=== PATIENT | female | born 1950 ===

== ENCOUNTER 2025-07-12 04:40 | Inpatient (IN) | payer MEDICARE, OTHER, SELFPAY ==
--- OUTSIDE RECORDS SUMMARY | 2025-07-11 21:16 | XMS_ITS | Encounter Summary ---
Author Organization [facility] Address [address] [place] [address] Phone Care Team Providers Care News Agent Name Role Phone Ravi Barker MD Unavailable Cecilia Epperson MD Unavailable Tere Hernandez PA-C Unavailable Jailene Jackson DO Primary Care Provider Reason for Visit * Reason Comments Fall Encounter Details Date Type Department Care Team (Late st Contact Info) Description 07/11/2025 9:16 PM EDT - 07/12/2025 4:10 AM EDT Emergency [facility] [address] [place] [address] Discharge Disposition: Another Health Care Institution Not Defined Social History Tobacco Use Types Packs/Day Years Used Date Smoking Tobacco: Never Smokeless Tobacco: Never Comments: Alcohol Use Standard Drinks/Week Comments Yes 0 (1 standard drink = 0.6 oz pur e alcohol) once a month Education Answer Date Recorded Are you interested in more education? Not on mariajose e 01/06/2023 Are you concerned about learning? Not on file 01/06/2023 No 01/06/2023 No 01/06/2023 Food Answer Date Recorded Within the past 6 months we worried whether our food would run out before we got money to buy more. Never True 01/22/2025 Within the past 6 months the food we bought just didn't last and we didn't have enough money to get more. Never True Residential Stability Answer Date Recor ded What is your housing situation today? I have hi duran 01/22/2025 How many times have you move d in the past 12 months? Zero (I did not move) 01/22/2025 Paying for Meds Answer Date Recorded Do you have trouble paying for medicines? No 01/22/2025 Paying Utility Bills Answer Date Record ed Do you have trouble paying your heating or elect ricity bill? No 01/22/2025 Transportation Answer Date Recorded Has the lack of transportati on kept you from medical appointments or from getting medications? Yes 01/22/2025 Digital Access Answer Date Recorded No 01/22/2025 Yes 01/22/2025 Do you have reliable internet access at home? Ye s 01/22/2025 Do you have a device (e.g., phone, tablet, computer) with a working camera? Yes 01/22/2025 Intimate Partner Violence Answer Date R ecorded Are you denied basic needs s uch as food, clothing, or medical care? No 07/11/2025 In the past 12 months have y ou been in a relationship with a person who hurts, threatens, or tries to control you? No 07/11/2025 Are you denied basic needs s uch as food, clothing, or medical care? No 07/11/2025 In the past 12 months have y ou been in a relationship with a person who hurts, threatens, or tries to control you? No 07/11/2025 Comments No Sex and Gender Information Value Date Recorded Sex Assigned at Female 11/28/2017 6:32 PM EDT Legal Sex Female 10:01 PM EDT Gender Identity Female 11/28/2017 6:32 PM EDT Sexual Orientation Bisexual 12/31/2017 8: 50 PM EDT documented as of this encounter Last Filed Vital Signs Vital Sign Reading Time Taken Comments Blood Pressure 140/88 07/12/2025 3:45 AM EDT Pulse 106 07/11/2025 9:57 PM EDT Temperature 36.9 C (98.5 F) 07/11/2025 9:49 PM EDT Respiratory Rate 18 07/11/2025 9:49 PM EDT Oxygen Saturation 97% 07/12/2025 3:45 AM EDT Inhaled Oxygen Concentration - - Weight - - Height - - Body Mass Index - - documented in this encounter Functional Status * Calculated C-SSRS Risk Score (Lifetime/Recent) Answer Date of Assessment Author No Risk Indicated 07/11/2025 9:42 PM Napoleon Morocho RN * [place] Suicide Severity Rating Scale (Screener/Recent Self-Report) Question Answer Date of Assessment Author 1. Wish to be (Past 1 Month) No 07/11/2025 9:42 PM Napoleon Morocho RN 2. Non-Specific Active Suicidal Thoughts (Past 1 Month) No 07/11/2025 9:42 PM Napoleon Morocho RN 6. Suicidal Behavior (Lifetime) No 07/11/2025 9:42 PM Napoleon Morocho RN documented as of this encounter Medications at Time of Discharge acetaminophen (TYLENOL) 325 mg tablet Take 2 tablets (650 mg total) by mouth every 6 (six) hours as needed. 0 09/18/2023 albuterol 90 mcg/actuation inhaler Inhale 2 puffs into the lungs every 4 (four) hours as needed for wheezing. amLODIPine (NORVASC) 10 MG tabletIndication s:Medication refill TAKE 1 TABLET BY MOUTH EVERY DAY 90 tablet 3 08/13/2024 atorvastatin (LIPITOR) 40 MG tablet take 1 tablet by mouth every day in the morning 90 tablet 3 05/21/2024 azithromycin (ZITHROMAX) 250 MG tablet One tablet every Monday , Monday and Monday 12 tablet 11 01/15/2025 biotin 1 mg tablet Take 1,000 mcg by mouth daily. celecoxib (CELEBREX) 200 MG capsule 01/23/2024 cycloSPORINE (RESTASIS) 0.05 % suspension Apply 1 drop to eye. 08/22/2023 docusate (COLACE) 100 mg tablet Take 100 mg by mouth. 09/21/2023 DULoxetine (CYMBALTA) 30 MG capsule Take 30 mg by mouth daily. 06/21/2024 ergocalciferol (DRISDOL) 50,000 unit capsule Take 50,000 Units by mouth once a week. esomeprazole (NEXIUM) 40 MG capsule Take 40 mg by mouth 2 (two) times a day. famotidine (PEPCID) 40 MG tablet Take 40 mg by mouth daily. fluticasone furoate (ARNUITY ELLIPTA) 200 mcg/actuation DsDv Inhale 1 puff into the lungs daily. 30 each 11 01/15/2025 fluticasone propionate (FLONASE) 50 mcg/actuation nasal spray 1 spray by Nasal route daily. fluticasone propionate (FLONASE) 50 mcg/actuation nasal spray 2 sprays by Nasal route daily. 16 g 5 07/01/2024 furosemide (LASIX) 40 MG tablet Take 1 tablet (40 mg total) by mouth every morning. 30 tablet 5 07/01/2024 lamoTRIgine (LAMICTAL) 100 MG IMMEDIATE release tablet Take 200 mg by mouth daily. latanoprost (XALATAN) 0.005 % ophthalmic solution Place 1 drop into each eye nightly. levothyroxine (SYNTHROID, LEVOTHROID) 112 MCG tablet Take 112 mcg by mouth every morning. LORazepam (ATIVAN) 0.5 MG tablet if needed 11/17/2022 meclizine (ANTIVERT) 12.5 mg tablet 08/29/2023 polyethylene glycol (MIRALAX) 17 gram packet Take 17 g by mouth 2 (two) times a day as needed for moderate constipation. Take up to twice daily to help have a bowel movement. Once moving bowels, can decrease to daily or as needed. 07/15/2023 PULMICORT FLEXHALER 180 mcg/actuation inhaler 04/19/2024 senna (SENOKOT) 8.6 mg tablet Take 8.6 mg by mouth. 09/09/2023 traZODone (DESYREL) 100 MG tablet Take 200 mg by mouth nightly at bedtime. 06/15/2023 umeclidinium-elvira anteroL (ANORO ELLIPTA) 62.5-25 mcg/actuation diskus inhaler Inhale 1 puff into the lungs daily. 1 each 5 07/01/2024 6 documented as of this encounter ED Notes * Napoleon Cole, RN - 07/11/2025 9:56 PM EDT ED Nursing Progress Note Pt reported needing to use bathroom. Rns attempted to provide toileting. Pt unable to tolerate d/t pain. Pt yelled at rns. Pt reports wanting to attempt after pain medication * Napoleon Cole RN - 07/11/2025 9:42 PM EDT Pt biba from home for fall, no headstrike/thinners/loc. Pt landed on L side, primarily hip. Pt received 50mcg fentanyl I'm en route and dilaudid on arrival to no effect. Pt 06/20 pain to hip along with new neuropathy-numbness and pain to palpation,. Pt axox3, * Sherita Mckenzie PA-C - 07/11/2025 9:15 PM EDT Chief Complaint Chief Complaint Patient presents with Fall History of Present Illness The patient, Briseida Adair,is a 75 y.o. female who presents for evaluation of Fall The patient is a 75-year-old female with past medical history of osteopenia, chronic heart failure,stage III chronic kidney disease, oxygen dependent COPD. She presents emergency department from home by ambulance for evaluation of left hip injury. Patient is accompanied by her sister whom she lives with. At the time of fall, patient was alone. She states that she tripped over her oxygen tubing, landing on her left hip region. She immediately had severe pain and was unable to get up but managed to crawl to the phone to call 911. She reports persistent severe pain despite fentanyl given by EMS and a milligram of Dilaudid given on arrival to the ED. She is requesting more pain medications. She denies head strike or LOC. Not anticoagulated. Denies any head, neck pain, back pain or other acute pain or injuries. Unless otherwise specified, I have reviewed and agree with the triage and nursing notes. ROS A ten point review of systems was negative except what was noted in the HPI. Review of Systems Past Medical History Past Medical History: Diagnosis Date Anemia gets iron infusions Aortic stenosis Arrhythmia LBBB, PVC's PAC's Asthma controlled with inhaler Chronic heart failure LEF 40% 11/2023 Chronic kidney disease (CKD) Chronic kidney disease, stage III (moderate) Baseline GFR 59 mg/dL; sees Dr Peterson Chronic nausea Chronic obstructive pulmonary disease oxygen dependant 2.5 L Colon polyp Depression with anxiety Digestive problems Diverticulitis Dysphagia Elevated LFTs Essential hypertension Fibromyalgia Foot drop, bilateral uses cane Fracture right wrist(no hardware) Gastroesophageal reflux disease Glaucoma Hearing loss History of ileus Hx of dehydration Hyperlipidemia Hypothyroidism Joint pain Nonalcoholic fatty liver disease Numbness and tingling left arm, hand and feet Obesity s/p lap band in 2011 with removal in 2016. Sleeve gastrectomy in 2017. Obstructive sleep apnea no CPAP Osteoarthritis Osteoporosis Oxygen dependent 09/2023 O2 at 2.5 L rx'd on dc from [facility] after a fall Peripheral neuropathy Recurrent vomiting Thought to be related to gastrectomy in 2017. Possible component of cannabis hyperemesis syndrome. Shortness of breath O2 dependant Type II diabetes mellitus with complication Complicated by nephropathy and retinopathy; no medications at this time Wears eyeglasses Wears glasses Wears hearing aid in both ears Past Surgical History Past Surgical History: Procedure Laterality Date COLONOSCOPY 08/12/2011 Repeat in 5 years COLONOSCOPY N/A 07/03/2024 Performed by Rafiq Jeronimo MD at [facility] ENDOSCOPY COLONOSCOPY W/ POLYPECTOMY 11/28/2016 Adenomatous polyp ESOPHAGEAL MANOMETRY WITH IMPEDANCE HIGH RESOLUTION 02/09/2021 Performed by Rafiq Jeronimo MD at [facility] ENDOSCOPY ESOPHAGOGASTRODUODENOSCOPY 01/29/2019 [facility] ESOPHAGOGASTRODUODENOSCOPY 12/11/2017 Ferrera Akash ESOPHAGOGASTRODUODENOSCOPY N/A 07/03/2024 Performed by Rafiq Jeronimo MD at [facility] ENDOSCOPY ESOPHAGOGASTRODUODENOSCOPY N/A 03/23/2021 Performed by Rafiq Jeronimo MD at [facility] ENDOSCOPY ESOPHAGOGASTRODUODENOSCOPY N/A 12/10/2020 Performed by Rafiq Jeronimo MD at [facility] ENDOSCOPY ESOPHAGOGASTRODUODENOSCOPY N/A 12/11/2017 Performed by Prince Colin MD at [facility] ENDOSCOPY JOINT REPLACEMENT right shoulder(07/2019); left (08/2020) LAP BAND PLACEMENT 07/2012 LAP BAND REMOVAL 06/30/2017 LAPAROSCOPIC SLEEVE GASTRECTOMY 08/10/2017 SPINAL FUSION L4-L5, 11/2019 TOTAL KNEE ARTHROPLASTY Right 09/08/2023 TOTAL SHOULDER ARTHROPLASTY Bilateral UPPER GASTROINTESTINAL ENDOSCOPY Home Medications Prior to Admission medications Medication Sig acetaminophen (TYLENOL) 325 mg tablet 650 mg, Oral, Every 6 hours PRN albuterol 90 mcg/actuation inhaler 2 puffs, Every 4 hours PRN amLODIPine (NORVASC) 10 MG tablet 10 mg, Oral, Daily atorvastatin (LIPITOR) 40 MG tablet 40 mg, Oral, Every morning Patient taking differently: Take 40 mg by mouth nightly at bedtime. azithromycin (ZITHROMAX) 250 MG tablet One tablet every Monday , Monday and Monday biotin 1 mg tablet 1,000 mcg, Daily celecoxib (CELEBREX) 200 MG capsule cycloSPORINE (RESTASIS) 0.05 % suspension 1 drop docusate (COLACE) 100 mg tablet 100 mg Patient taking differently: Take 100 mg by mouth as needed for mild constipation. DULoxetine (CYMBALTA) 30 MG capsule 30 mg, Daily ergocalciferol (DRISDOL) 50,000 unit capsule 50,000 Units, Weekly esomeprazole (NEXIUM) 40 MG capsule 40 mg, 2 times daily famotidine (PEPCID) 40 MG tablet 40 mg, Daily fluticasone furoate (ARNUITY ELLIPTA) 200 mcg/actuation DsDv 1 puff, Inhalation, Daily fluticasone propionate (FLONASE) 50 mcg/actuation nasal spray 1 spray, Daily fluticasone propionate (FLONASE) 50 mcg/actuation nasal spray 2 sprays, Nasal, Daily furosemide (LASIX) 40 MG tablet 40 mg, Oral, Every morning lamoTRIgine (LAMICTAL) 100 MG IMMEDIATE release tablet 200 mg, Daily latanoprost (XALATAN) 0.005 % ophthalmic solution 1 drop, Nightly levothyroxine (SYNTHROID, LEVOTHROID) 112 MCG tablet 112 mcg, Every morning LORazepam (ATIVAN) 0.5 MG tablet if needed meclizine (ANTIVERT) 12.5 mg tablet polyethylene glycol (MIRALAX) 17 gram packet 17 g, Oral, 2 times daily PRN, Take up to twice daily to help have a bowel movement. Once moving bowels, can decrease to daily or as needed. PULMICORT FLEXHALER 180 mcg/actuation inhaler senna (SENOKOT) 8.6 mg tablet 8.6 mg Patient taking differently: Take 8.6 mg by mouth as needed for constipation. traZODone (DESYREL) 100 MG tablet 200 mg, Nightly umeclidinium-vilanteroL (ANORO ELLIPTA) 62.5-25 mcg/actuation diskus inhaler 1 puff, Inhalation, Daily Allergies Allergies Allergen Reactions Celebrex [Celecoxib] Acute Interstitial Nephritis Patient denies this allergy Aspirin Other reaction(s): taking celebrex Azithromycin Other (See Comments) Erythromycin Pollen Extracts Sneezing Sneezing, runny nose Sulfa (Sulfonamide Antibiotics) Other reaction(s): rash Victoza [Liraglutide] Social and Family History Social History Tobacco Use Smoking status: Never Smokeless tobacco: Never Tobacco comments: Substance Use Topics Alcohol use: Yes Comment: once a month Social History Substance and Sexual Activity Drug Use Yes Frequency: 7.0 times per week Types: Marijuana Comment: smokes Family History Problem Relation Age of Onset Dementia Mother Hypertension Mother Asthma Mother Alcohol abuse Father Diabetes Father Hypertension Father Diabetes Sister Myasthenia gravis Sister Heart disease Paternal Grandmother Heart disease Paternal Grandfather Physical Exam Vital Signs: ED Triage Vitals Encounter Vitals Group BP 07/11/25 2150 (!) 168/87 Systolic BP Percentile -- Diastolic BP Percentile -- Heart Rate 07/11/25 2157 (!) 106 Respiratory Rate 07/11/252148 18 Temperature 07/11/252148 36.9 ??C (98.5 ??F) Temp Source 07/11/252148 Oral SpO2 07/11/252148 100 % Weight -- Height -- Head Circumference -- Peak Flow -- Pain Score -- Pain Loc -- Pain Education -- Exclude from Growth Chart -- Physical Exam Vitals and nursing note reviewed. Constitutional: General: She is in acute distress (Due to pain). Appearance: Normal appearance. She is not ill-appearing. HENT: Head: Atraumatic. Nose: Nose normal. Mouth/Throat: Mouth: Mucous membranes are moist. Eyes: Extraocular Movements: Extraocular movements intact. Conjunctiva/sclera: Conjunctivae normal. Pupils: Pupils are equal, round, and reactive to light. Cardiovascular: Rate and Rhythm: Normal rate and regular rhythm. Pulmonary: Effort: Pulmonary effort is normal. Abdominal: General: There is no distension. Palpations: Abdomen is soft. Tenderness: There is no abdominal tenderness. There is no guarding or rebound. Musculoskeletal: Cervical back: Normal range of motion and neck supple. No tenderness. Comments: She keeps the left hip/leg in a bent flexed position. No obvious deformity, bruising or notable swelling. Severe pain with attempted movement. Extremity is warm and well-perfused distally with distal sensation grossly intact. Skin: General: Skin is warm and dry. Neurological: General: No focal deficit present. Mental Status: She is alert and oriented to person, place, and time. Psychiatric: Mood and Affect: Mood normal. Affect is angry. Behavior: Behavior is agitated. Laboratory Testing No results found for this visit on 07/11/25. Radiology Testing CT Head (Results Pending) CT Cervical Spine (Results Pending) XR Hip (Left) (Results Pending) ED Medication from 07/11/20252114 to 07/11/20257 Date/Time Order Dose Route Action Action by Comments 07/11/20252122 EDT HYDROmorphone (PF) (DILAUDID) injection 1 mg 1 mg Intravenous Given Viktoria Gleason RN -- 07/11/20252227 EDT HYDROmorphone (PF) (DILAUDID) injection 1 mg 1 mg Intravenous Given Napoleon Cole RN -- [facility] Assessment and Plan: Patient presents for left hip pain after mechanical fall at home. Patient is hemodynamically stable exam. Patient appears to be in acute distress from pain, also agitated requesting pain medicines on arrival. Remaining exam as noted above. Patient given 4 mg IV Dilaudid x 2. Patient sent for CT imaging of head and cervical spine, pending results. X-ray left hip x-ray obtained, shows obvious fracture. Will require admission for surgical repair. Pending remaining medical tests, orthopedic consult and admission/dispo. Category 2 and 3: Independent Interpretation of Tests, Consideration of Tests, or External Discussion of Results: Radiology: Radiology studies were independently interpreted. X-ray left hip broken. Risks of Complications, Morbidity, or Mortality: Risks: Parenteral controlled substance was administered. Critical Care Time: 0 minutes Clinical Impression None Disposition: Signed out Sherita Mckenzie PA-C 07/11/25 4141 documented in this encounter Plan of Treatment Upcoming Encounters Date Type Department Care Team (Late st Contact Info) Description 08/22/2025 11:00 AM EST Office Visit [facility] Pulmonary, Allergy and Critical Care Medicine [address] [facility] [place] [address] [place] [address] Sampson Villa MD [address] [place] [address] 11/03/2025 1:40 PM EST Office Visit [facility] [address] [place] [address] 3rd Floor, [address] [place] [id number] Enrike Beltrán MD [address] [facility] [address] [place] [id number] documented as of this encounter Procedures Procedure Name Priority Date/Time Associated Diagnosis Comments Hold Specimen In Blood Bank (No Testing Performed) STAT 07/11/2025 11:11 PM EDT CBC AND DIFFERENTIAL STAT 07/11/2025 11:11 PM EDT MAGNESIUM STAT 07/11/2025 11:11 PM EDT BASIC METABOLIC PANEL STAT 07/11/2025 11:11 PM EDT XR CHEST 1 VIEW Routine 07/11/2025 11:04 PM EDT XR HIP 2-3 VW LEFT Routine 07/11/2025 11 :[address] CERVICAL SPINE WITHOUT CONTRAST Routine 07/11/2025 9:[address] HEAD WITHOUT CONTRAST Routine 07/11/2025 9:53 PM EDT documented in this encounter Results * Hold Specimen In Blood Bank (07/11/2025 11:11 PM EDT) Expiration Date of Sample 07/14/2025 ,2359 [facility] Resulting Agency [facility] Blood 07/11/2025 11:1 1 PM EDT 07/11/2025 11:14 PM EDT Sherita Mckenzie PA-C BLOOD BANK TEST ORDERABLES Final Result [address] [address] * Magnesium (07/11/2025 11:11 PM EDT) MAGNESIUM 1.7 1.6 - 2.6 mg/dL [facility] Blood 07/11/2025 11:1 1 PM EDT 07/11/2025 11:14 PM EDT Sherita Mckenzie PA-C LAB BLOOD ORDERA BLES Final Result [address] [address] * (ABNORMAL) Basic metabolic panel (07/11/2025 11:11 PM EDT) SODIUM 141 133 - 146 mmol/L [facility] CHLORIDE 99 96 - 108 mmol/L [facility] POTASSIUM 3.4 3.3 - 5.1 mmol/L [facility] CO2 29 21 - 35 mmol/L [facility] BUN 22(H) 6 - 19 mg/dL [facility] CREATININE 1.30 0.5 - 1.5 mg/dL [facility] GLUCOSE 146(H) 70 - 99 mg/dL [facility] CALCIUM 9.6 8.4 - 10.3 mg/dL [facility] EGFR 43(L) >59 mL/min/1.7 3m2 [facility] Comment:Estimated glomerular filtration rate calculated using the CKD-EPI refit equation. ANION GAP 16 10 - 20 mmol/L [facility] Blood 07/11/2025 11:1 1 PM EDT 07/11/2025 11:14 PM EDT us Sherita Mckenzie PA-C LAB BLOOD ORDERA BLES Final Result [facility] [address] [place] [address] * (ABNORMAL) CBC and differential (07/11/2025 11:11 PM EDT) WBC 18.17(H) 4.00 - 11.00 K/uL [facility] RBC 3.85(L) 4.00 - 5.20 M/uL [facility] HGB 11.8(L) 12.0 - 16.0 g/dL [facility] HCT 35.8(L) 36.0 - 46.0 % [facility] PLT 291 150 - 450 K/uL [facility] MCV 93.0 80.0 - 100.0 fL [facility] MCH 30.6 27.0 - 31.0 pg [facility] MCHC 33.0 32.0 - 36.0 g/dL [facility] RDW 13.6 11.5 - 14.5 % [facility] MPV 9.5 8.4 - 12.0 fL [facility] NRBC 0.00 0.00 /100 WBCs [facility] ABSOLUTE NRBC 0.00 0.00 K/uL [facility] DIFF METHOD Auto [facility] NEUTS 84.5(H) 48.0 - 76.0 % [facility] LYMPHS 4.2(L) 18.0 - 41.0 % [facility] MONOS 3.4(L) 4.0 - 11.0 % [facility] EOS 7.1(H) 0.0 - 5.0 % [facility] BASOS 0.2 0.0 - 1.5 % [facility] Granulocytes, immature (%) 0.6 0.0 - 0.9 % [facility] ABSOLUTE NEUTS 15.35(H) 1.92 - 7.60 K/uL [facility] ABSOLUTE LYMPHS 0.77 0.72 - 4.10 K/uL [facility] ABSOLUTE MONOS 0.62 0.16 - 1.10 K/uL [facility] ABSOLUTE EOS 1.29(H) 0.00 - 0.50 K/uL [facility] ABSOLUTE BASOS 0.03 0.00 - 0.15 K/uL [facility] Granulocytes, immature 0.11(H) 0.00 - 0.09 K/uL [facility] Blood 07/11/2025 11:1 1 PM EDT 07/11/2025 11:14 PM EDT us Sherita Mckenzie PA-C LAB BLOOD ORDERA BLES Edited Result - Final [address] [address] * XR CHEST 1 VIEW (07/11/2025 11:04 PM EDT) Anatomical Region Laterality Modality Chest Computed Radiogr aphy 07/12/2025 1:39 AM EDT Impressions 07/12/2025 1:41 AM EDT Similar platelike scarring versus atelectasis in the right mid lung zone. No new consolidation. Narrative 07/12/2025 1:41 AM EDT XR CHEST 1 VIEW Referring clinician's provided indication for this examination in [facility]: Pre-Op COMPARISON: XR CHEST PORTABLE FINDINGS: Devices/Tubes/Lines: None. Lungs: Similar platelike scarring versus atelectasis in the right mid lung zone. Pleura: No pleural effusion or pneumothorax. Heart/Mediastinum: Unchanged in appearance. Bones/Soft Tissues: No significant degenerative abnormality. Bilateral shoulder reverse arthropathy. Partially visualized fusion hardware of the lumbar spine. Procedure Note Adrian Queen MD - 07/12/2025 XR CHEST 1 VIEW Referring clinician's provided indication for this examination in [facility]:Pre-Op COMPARISON: XR CHEST PORTABLE FINDINGS: Devices/Tubes/Lines: None. Lungs: Similar platelike scarring versus atelectasis in the right mid lungzone. Pleura: No pleural effusion or pneumothorax. Heart/Mediastinum: Unchanged in appearance. Bones/Soft Tissues: No significant degenerative abnormality. Bilateralshoulder reverse arthropathy. Partially visualized fusion hardware of thelumbar spine. IMPRESSION: Similar platelike scarring versus atelectasis in the right mid lung zone.No new consolidation. Sherita Mckenzie PA-C IMG XR CHEST Final Result * XR HIP 2-3 VW LEFT (07/11/2025 11:04 PM EDT) Anatomical Region Laterality Modality Hip Left Computed Radiogr aphy 07/12/2025 1:42 AM EDT Impressions 07/12/2025 1:47 AM EDT Acute displaced intertrochanteric fracture of the left femur. Narrative 07/12/2025 1:47 AM EDT XR HIP 2-3 VW LEFT Referring clinician's provided indication for this examination in [facility]: Pain; S/P Fall COMPARISON: CT ABDOMEN/PELVIS WITH CONTRAST FINDINGS: Pelvis: Degenerative changes are present in the visualized pubic symphysis and bilateral sacroiliac joints. Fusion hardware is seen in the lower lumbar spine. Frontal projection of the right hip demonstrates normal joint spaces. Left hip: Acute displaced intertrochanteric fracture, with varus angulation of the distal fragment. The femoral head remains within the acetabular fossa. Procedure Note Adrian Queen MD - 07/12/2025 XR HIP 2-3 VW LEFT Referring clinician's provided indication for this examination in [facility]:Pain; S/P Fall COMPARISON: CT ABDOMEN/PELVIS WITH CONTRAST FINDINGS: Pelvis: Degenerative changes are present in the visualized pubic symphysisand bilateral sacroiliac joints. Fusion hardware is seen in the lowerlumbar spine. Frontal projection of the right hip demonstrates normaljoint spaces. Left hip: Acute displaced intertrochanteric fracture, with varusangulation of the distal fragment. The femoral head remains within theacetabular fossa. IMPRESSION: Acute displaced intertrochanteric fracture of the left femur. us Amy Villagomez PA-C IMG XR PELVIS Final Resul t * CT CERVICAL SPINE WITHOUT CONTRAST (07/11/2025 9:53 PM EDT) Anatomical Region Laterality Modality C-spine Computed Tomogra phy 07/12/2025 1:14 AM EDT Impressions 07/12/2025 1:38 AM EDT 1. No acute intracranial findings. 2. No acute fracture or traumatic malalignment of the cervical spine. Narrative 07/12/2025 1:[address] HEAD WITHOUT CONTRAST, CT CERVICAL SPINE WITHOUT CONTRAST Referring clinician's provided indication for this examination in Epic: * Head trauma, minor (Age >= 65y) TECHNIQUE: CTs of the head and cervical spine were performed without intravenous contrast using tailored dose modulation techniques. Images were reconstructed in the axial, coronal, and sagittal planes. COMPARISON: None. FINDINGS: HEAD: Brain Parenchyma: No midline shift, mass effect, parenchymal hemorrhage, or evidence of acute territorial infarct. Hypodensities in the periventricular white matter, likely a manifestation of chronic small vessel disease. Ventricular System and Extra-Axial Spaces: The ventricles and sulci are prominent. No extra-axial fluid collections. Basilar cisterns are patent. No hydrocephalus. Osseous and Extracranial Structures: No calvarial fracture or significant soft tissue hematoma. No significant paranasal sinus disease. No orbital abnormality. CERVICAL SPINE: Alignment and Vertebrae: Mild anterolisthesis of C3 on C4. Congenital nonunion of the posterior arch of C1. Vertebral bodies height is maintained. Discs and Endplates: Multilevel degenerative changes. Other Findings: Partially visualized esophagus is dilated similar to prior. No prevertebral soft tissue swelling Procedure Note Adrian Queen MD - 07/12/2025 CT HEAD WITHOUT CONTRAST, CT CERVICAL SPINE WITHOUT CONTRAST Referring clinician's provided indication for this examination in [facility]: *Head trauma, minor (Age >= 65y) TECHNIQUE: CTs of the head and cervical spine were performed withoutintravenous contrast using tailored dose modulation techniques. Imageswere reconstructed in the axial, coronal, and sagittal planes. COMPARISON: None. FINDINGS: HEAD: Brain Parenchyma: No midline shift, mass effect, parenchymal hemorrhage,or evidence of acute territorial infarct. Hypodensities in theperiventricular white matter, likely a manifestation of chronic smallvessel disease. Ventricular System and Extra-Axial Spaces: The ventricles and sulci areprominent. No extra-axial fluid collections. Basilar cisterns are patent.No hydrocephalus. Osseous and Extracranial Structures: No calvarial fracture or significantsoft tissue hematoma. No significant paranasal sinus disease. No orbitalabnormality. CERVICAL SPINE: Alignment and Vertebrae: Mild anterolisthesis of C3 on C4. 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 Vertebral bodies height ismaintained. Discs and Endplates: Multilevel degenerative changes. Other Findings: Partially visualized esophagus is dilated similar toprior. No prevertebral soft tissue swelling IMPRESSION: 1. No acute intracranial findings. 2. No acute fracture or traumatic malalignment of the cervical spine. Amy Villagomez PA-C IMMahin CT XSPECIALTY ORDERABLE S Final Result * CT HEAD WITHOUT CONTRAST (07/11/2025 9:53 PM EDT) Anatomical Region Laterality Modality Head Computed Tomogra phy 07/12/2025 1:14 AM EDT Impressions 07/12/2025 1:38 AM EDT 1. No acute intracranial findings. 2. No acute fracture or traumatic malalignment of the cervical spine. Narrative 07/12/2025 1:[address] HEAD WITHOUT CONTRAST, CT CERVICAL SPINE WITHOUT CONTRAST Referring clinician's provided indication for this examination in [facility]: * Head trauma, minor (Age >= 65y) TECHNIQUE: CTs of the head and cervical spine were performed without intravenous contrast using tailored dose modulation techniques. Images were reconstructed in the axial, coronal, and sagittal planes. COMPARISON: None. FINDINGS: HEAD: Brain Parenchyma: No midline shift, mass effect, parenchymal hemorrhage, or evidence of acute territorial infarct. Hypodensities in the periventricular white matter, likely a manifestation of chronic small vessel disease. Ventricular System and Extra-Axial Spaces: The ventricles and sulci are prominent. No extra-axial fluid collections. Basilar cisterns are patent. No hydrocephalus. Osseous and Extracranial Structures: No calvarial fracture or significant soft tissue hematoma. No significant paranasal sinus disease. No orbital abnormality. CERVICAL SPINE: Alignment and Vertebrae: Mild anterolisthesis of C3 on C4. Congenital nonunion of the posterior arch of C1. Vertebral bodies height is maintained. Discs and Endplates: Multilevel degenerative changes. Other Findings: Partially visualized esophagus is dilated similar to prior. No prevertebral soft tissue swelling Procedure Note Adrian Queen MD - 07/12/2025 CT HEAD WITHOUT CONTRAST, CT CERVICAL SPINE WITHOUT CONTRAST Referring clinician's provided indication for this examination in Epic: *Head trauma, minor (Age >= 65y) TECHNIQUE: CTs of the head and cervical spine were performed withoutintravenous contrast using tailored dose modulation techniques. Imageswere reconstructed in the axial, coronal, and sagittal planes. COMPARISON: None. FINDINGS: HEAD: Brain Parenchyma: No midline shift, mass effect, parenchymal hemorrhage,or evidence of acute territorial infarct. Hypodensities in theperiventricular white matter, likely a manifestation of chronic smallvessel disease. Ventricular System and Extra-Axial Spaces: The ventricles and sulci areprominent. No extra-axial fluid collections. Basilar cisterns are patent.No hydrocephalus. Osseous and Extracranial Structures: No calvarial fracture or significantsoft tissue hematoma. No significant paranasal sinus disease. No orbitalabnormality. CERVICAL SPINE: Alignment and Vertebrae: Mild anterolisthesis of C3 on C4. 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 Vertebral bodies height ismaintained. Discs and Endplates: Multilevel degenerative changes. Other Findings: Partially visualized esophagus is dilated similar toprior. No prevertebral soft tissue swelling IMPRESSION: 1. No acute intracranial findings. 2. No acute fracture or traumatic malalignment of the cervical spine. Amy Villagomez PA-C IMG CT HEAD/NECK Final Resu lt documented in this encounter Visit Diagnoses Not on filedocumented in this encounter Administered Medications Inactive Administered Medications - up to 3 most recent administrations Medication Order MAR Action Action Date Dose Rate Site diazePAM (VALIUM) injection syringe 5 mg 5 mg, Intravenous, Once, On Mon07/11/25 at 2300, For 1 dose, Avoid extravasation. Given 07/11/2025 11:24 PM EDT 5 mg HYDROmorphone (PF) (DILAUDID) injection 1 mg 1 mg, Intravenous, Once, On Mon07/11/25 at 2130, For 1 dose Given 07/11/2025 9:23 PM EDT 1 mg HYDROmorphone (PF) (DILAUDID) injection 1 mg 1 mg, Intravenous, Once, On Mon07/11/25 at 2215, For 1 dose Given 07/11/2025 10:28 PM EDT 1 mg HYDROmorphone (PF) (DILAUDID) injection 1 mg 1 mg, Intravenous, Once, On 07/12/25 at 0145, For 1 dose Given 07/12/2025 1:32 AM EDT 1 mg HYDROmorphone (PF) (DILAUDID) injection 1 mg 1 mg, Intravenous, Once, On 07/12/25 at 0230, For 1 dose Given 07/12/2025 2:38 AM EDT 1 mg HYDROmorphone (PF) (DILAUDID) injection 1 mg 1 mg, Intravenous, Once, On 07/12/25 at 0400, For 1 dose Given 07/12/2025 3:49 AM EDT 1 mg documented in this encounter Active and Recently Administered Medications Times are shown in EDT. Scheduled Medication Order 07/10/2025 07/11/2025 07/12/2025 diazePAM (VALIUM) injection syringe 5 mg (COMPLETED) 5 mg, Intravenous, Once, On Mon07/11/25 at 2300, For 1 dose, Avoid extravasation. 2324 (Given - Provider: Napoleon Cole RN) HYDROmorphone (PF) (DILAUDID) injection 1 mg (COMPLETED) 1 mg, Intravenous, Once, On Mon07/11/25 at 2130, For 1 dose 2123 (Given - Provider: Viktoria Gleason RN) HYDROmorphone (PF) (DILAUDID) injection 1 mg (COMPLETED) 1 mg, Intravenous, Once, On Mon07/11/25 at 2215, For 1 dose 2228 (Given - Provider: Napoleon Cole RN) HYDROmorphone (PF) (DILAUDID) injection 1 mg (COMPLETED) 1 mg, Intravenous, Once, On 07/12/25 at 0145, For 1 dose 0132 (Given - Provid er: Napoleon Cole RN) HYDROmorphone (PF) (DILAUDID) injection 1 mg (COMPLETED) 1 mg, Intravenous, Once, On 07/12/25 at 0230, For 1 dose 0238 (Given - Provid er: Napoleon Cole RN) HYDROmorphone (PF) (DILAUDID) injection 1 mg (COMPLETED) 1 mg, Intravenous, Once, On 07/12/25 at 0400, For 1 dose 0349 (Given - Provid er: Napoleon Cole RN) documented in this encounter Care Teams News Agent Relationship Specialty Start Date End Date Jailene Jackson DO [address] [place] [phone] PCP - General Family Medicine 07/13/23 Ravi Barker MD Endocrinology 12/06/17 Cecilia Epperson MD [address] [place] [address] [place] [address] General Surgery 12/06/17 Tere Hernandez, DANNY [address] [place] [phone] [email or web address] Physician Head Start Coordinator Hematology 07/13/20 documented as of this encounter Additional Source Comments The information contained in this document represents components of the legal health record. It is not the complete legal health record.[facility]
[2025-07-12] VITALS (13 sets, daily range): BP systolic 112–163; BP diastolic 56–82; PULSE 86–108; RESP 14–22; TEMP 36–36.7; O2SAT 92–98; BMI 22.8
--- NOTE | 2025-07-12 | ECG_ITS ---
Test Reason : BASELINE PRE OP Blood Pressure : */* mmHG Vent. Rate : 85 BPM Atrial Rate : 85 BPM P-R Int : 172 ms QRS Dur : 110 ms QT Int : 422 ms P-R-T Axes : 60 -9 76 degrees QTcB Int : 502 ms Sinus rhythm with occasional Premature ventricular complexes Minimal voltage criteria for LVH, may be normal variant ( [place] product ) Prolonged QT Abnormal ECG No previous ECGs available Referred By: Josephine Snyder Electronically Signed By: DAISY TERESA
--- NOTE | ~2025-07-12 | XR_ITS ---
CLINICAL HISTORY: known fx, per ortho request 3 view, pelvis and left hip Comparison: None provided Findings: Horizontally oriented left intertrochanteric femoral fracture with displacement and overlap of the fracture fragments. Severe degenerative changes of the left hip with osteophyte formation and medial narrowing. Severe degenerative changes of the right hip with osteophyte formation and medial narrowing. Lumbar spine fusion hardware redemonstrated. The soft tissues notable for vascular calcifications and pelvic phleboliths. IMPRESSION: Horizontally oriented left intratrochanteric femoral fracture with displacement and overlap of fracture fragments. This document has been electronically signed by: Imer Valladares MD on 07/12/2025 07:23:59
--- NOTE | ~2025-07-12 | FL_ITS ---
EXAMINATION: FL GUIDANCE ONLY HISTORY: Left hip fracture COMPARISON: Correlation is made with plain films of the left hip dated 07/12/2025. TECHNIQUE: Fluoroscopy time: 1 minute, 59 seconds. Cumulative Dose: 21.10 mGy. DAP: 3823.80 uGym2 Images: 6. FINDINGS: Fluoroscopic spot films of the left hip demonstrate internal fixation of the previously noted intertrochanteric fracture with a compression screw and intramedullary jared. FL/FL guidance in OR IMPRESSION: Fluoroscopy during procedure. Please see procedure report for additional information. Electronically signed by: aMnny Key MD 07/14/2025 07:02 AM ALANA
--- NOTE | ~2025-07-12 | XR_ITS ---
CLINICAL HISTORY: ortho pre op 1 view chest x-ray Comparison: None provided Findings: No consolidation. Linear scarring of the right mid lung. Irregular mediastinal contour with appearance of pharyngeal pouch and nonspecific widening of trachea pharyngeal contours. Normal size heart. Bilateral shoulder arthroplasties and lumbar spine fixation hardware in position. No acute osseous abnormality. IMPRESSION: 1. No acute cardiopulmonary findings. No pleural effusions or consolidations. 2. Abnormal mediastinal and tracheal/pharyngeal contour suggests postoperative history. Clinical correlation is recommended. This document has been electronically signed by: Imer Valladares MD on 07/12/2025 07:19:17
--- NOTE | 2025-07-12 05:19 | P.HPHOSP_ITS ---
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 Patient currently reports 3/10 left upper hip pain. Patient states she tripped on her oxygen tubing approximately 20:00 last evening and had to crawl to her phone to call 911. Patient has 2 housemates but neither were available for assistance. [facility] did not have the available orthopedics specialist for the hip repair and [facility] declined due to capacity issues and [facility] accepted transfer for Dr. Mesa's. Since then Dr. Juarez has spoken with Fabi Vincent and Orthopedics is currently aware of patient's presence and need for surgical intervention most likely. Patient is not on blood thinners. Labs at [facility] note a white blood count of 18.17, H and H of 11.8 and 35.8, platelets 291 K,141, potassium 3.4, BUN 22, creatinine 1.30, GFR 43, anion gap 16, glucose 146, magnesium 1.7. EKG pending and type and screen has been ordered. Patient is a full code status and agreeable to surgery. Review of Systems 2 Review of Systems: Patient denies chest pain, abdominal pain but is reporting 3/10 left upper hip pain. Patient denies any nausea, vomiting, fever or chills. Patient denies any upper respiratory symptoms. Patient denies any history of cardiac arrhythmia or cardiac intervention and is not on blood thinners. Patient offers that she has had falls in the past due to neuropathy in both legs and generalized weakness. Patient states she does not have a healthcare proxy and no family in the local area. Yes all other systems are reviewed and are negative [facility] Medical History (Updated 07/12/25 @ 06:17 by Yasmine Juarez MD) Diabetic neuropathy Hypothyroidism Ileus Hearing loss Footdrop NAFLD (nonalcoholic fatty liver disease) Fibromyalgia Diverticulitis CKD (chronic kidney disease) stage 3, GFR 30-59 ml/min COPD (chronic obstructive pulmonary disease) Anemia Wrist fracture HFrEF (heart failure with reduced ejection fraction) Aortic stenosis Glaucoma GERD (gastroesophageal reflux disease) Depression with anxiety Hyperlipidemia Hypertension Cognitive capacity: Alert and orientated x3 Functional capacity: uses cane/walker Patient : No Surgical History (Updated 07/12/25 @ 06:07 by ARIES Shipman) Gastric bypass status for obesity History of total right knee replacement (TKR) S/P shoulder hemiarthroplasty Social History Alcohol intake: current Smoked in Last 30 Days: Yes Use of substances other than those prescribed or required for medical reasons: Yes Substance Use Type: Marijuana Substance Use Frequency: Daily Last Used Substance: Days (ago) Any prior treatment program specific to substance use: No Advance Directives: No Advance Directives Information Provided: Yes Do you have a plan to hurt others: No Plan Ebola Risk: Travel/Contact With Anyone From Affected Area/s: No Has Patient Experienced Ebola Symptoms: No Meds Allergies Allergy/AdvReac Type Severity Reaction Status Date / Time liraglutide (From Victoza) Allergy Rash Verified 07/12/25 05:06 Sulfa (Sulfonamide Allergy Rash Verified 07/12/25 05:06 Antibiotics) erythromycin base AdvReac Gastrointestinal Verified 07/12/25 05:06 Upset Active Medications: Current Medications Acetaminophen (Acetaminophen 325 Mg Tablet) 650 mg PO Q6H PRN PRN Reason: Pain, Mild 1-3,fever,headache Albuterol/Ipratropium (Albuterol/Iprat 2.5/0.5mg 3 Ml Ampul.Neb) 3 ml INHALE Q4H PRN PRN Reason: Shortness of Breath/Wheezing Calcium Carbonate (Calcium Carbonate 750 Mg Tab.Chew) 750 mg PO Q4H PRN PRN Reason: Heartburn Magnesium Hydroxide (Milk Of Magnesia 30 Ml Oral.Susp) 30 ml PO DAILY PRN PRN Reason: Constipation Melatonin (Melatonin 3 Mg Tablet) 6 mg PO BEDTIME PRN PRN Reason: Insomnia Ondansetron HCl (Ondansetron Hcl 4 Mg/2 Ml Vial) 4 mg IVPUSH Q8H PRN PRN Reason: Nausea and Vomiting Polyethylene Glycol (Polyethylene Glycol 3350 17 Gm Powd.Pack) 17 gm PO DAILY PRN PRN Reason: Constipation Senna (Sennosides 8.6 Mg Tablet) 17.2 mg PO BEDTIME JIGAR Sodium Chloride (0.9 % Sodium Chloride Flush 3 Ml Syringe) 3 ml IVFLUSH QSHIFT JIGAR Physical Exam 2 Vital Signs and Narrative: Vital Signs: Last Vital Signs Temp 97.7 F 07/12/25 05:02 Pulse 97 07/12/25 05:02 Resp 14 07/12/25 05:02 BP 125/74 07/12/25 05:02 Pulse Ox 92 07/12/25 05:02 O2 Del Method Nasal Cannula 07/12/25 05:02 Oxygen Flow Rate 2 07/12/25 05:02 BMI result Body Mass Index 22.8 Alert and orientated X3, able to give good history. Appears comfortable in no distress Neuro: CN II-X11 intact, no deficits, visual acuity intact EYES: PERRLA, EOM intact, sclerae nonicteric, conjunctiva pink ENT: Hard of hearing, no issues with swallowing, uvula midline, lips moist, nares patent no epistaxis Cardiac: S1 S2 RRR, no murmur, no JVD, no edema in Lower ext Pulmonary: lungs diminished bilaterally, patient currently on nasal cannula and uses oxygen at home Abdominal: BS active in all 4 quadrants, no guarding, tenderness, rebounding MSK: strength 3-4/5 upper and R lower extremities, unable to assess strength in the left lower extremity : no CVA tenderness no bladder distension Extremities: no edema in lower extremities, PT and DP pulses palpable +2, left lower extremity shorter than right, sensation intact in left lower extremity Psych: mood stable, judgement and insight good Skin: No new rashes or lesions Results Labs 07/12/25 05:43 07/12/25 05:43 Assessment and Plan (1) Femur fracture, left: Qualifiers: Encounter type: initial encounter Femur location: unspecified portion of femur Fracture morphology: unspecified fracture morphology Fracture type: c losed Qualified Code(s): S72.92XA - Unspecified fracture of left femur, initial encounter for closed fracture Status: Acute Plan 75-year-old female with past medical history hypertension, hypothyroidism, anemia, aortic stenosis, 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 Patient was accepted by Dr. Juarez who has reached out to Orthopedics and they are aware that patient has been transferred. Acute displaced intertrochanteric left femur fracture Occurred a p.m. last evening status post fall involving oxygen tubing CT of the head and neck are negative for acute findings - testing was done at [facility] Patient required transfer as [facility] did not have the computer network support specialist available Orthopedic consultation placed Patient NPO Patient not currently on blood thinners Type and screen ordered Patel with temperature probe in place Plan for surgery possibly today with Orthopedics Orthopedics requested a two-view x-ray of the left hip EKG ordered, no record of EKG from [facility] H&H currently stable Pain management Incentive spirometry Leukocytosis We will check UA Chest x-ray requested by Orthopedics No current fever, chills or night sweats GERD Pt on protonix IV while NPO Hypertension Currently controlled Avoid hypotension Med rec pending HFrEF Patient presents euvolemic on her baseline nasal cannula of 2 L Daily weight, fluid allowance 1500, once able to eat we will need a cardiac diet low-sodium BNP pending COPD/Asthma Use O2 at home CXR pending No scute distress or indication to test for COVID, FLU Pt does not use tobacco, smokes marijuana but long hx of second hand smoke exposure Anemia H/H currently stable No indication for transfusion If pt needs transfusion, is agreeable Fibromyalgia Chronic, await med rec and order appropriate medications post operatively if pt goes to OR today NIDDM SSI for NPO status, please change to ACHS if pt is permitted a diet DIabetic diet once able to eat HLD COntinue Statin once able to take po meds and med rec completed Glaucoma Continue home eye drops once med rec completed Depression/Anxiety Continue lamotrigine, duloxetine, lorazepam, trazodone once med rec completed Ensure Qtc stable, ECG pending Hypothyroidism TSH pending Pt normally on levothyroxine, continue once med rec completed If pt remains NPO, administer dose IV (1/2 normal dose) DVT prophylaxis: Held in case patient goes to the OR, patient not currently on blood thinners Med rec pending Full code status Patient states she has no family to notify and her housemates are aware that she is here and in need of surgery. Patient require at least a 2 midnight stay for expert consultation with Orthopedics and surgical intervention. Quality Stroke Does the patient have a stroke diagnosis?: No Reason for No Anti-thrombotic by Day Two: Contraindicated (in case pt goes for surgery today ) VTE Prior VTE?: No VTE Risk Level:: Medical - moderate - high VTE Device Contraindication: N/A - Device Ordered VTE Drug Contraindication: Treatment Not Indicated
--- OUTSIDE RECORDS SUMMARY | 2025-07-12 05:32 | XMS_ITS | Encounter Summary ---
Author Organization [facility] Address [address] [place] [address] Phone Care Team Providers Care Finished Metal Repairer Name Role Phone Ravi Barker MD Unavailable Cecilia Epperson MD Unavailable [phone] Tyrone Barragan MD Primary Care Provider [phone] Tere Hernandez PA-C Unavailable [phone] Jailene Jackson DO Primary Care Provider [phone] Encounter Details Date Type Department Care Team (Late st Contact Info) Description 12/10/2020 Procedure Pass [facility] Endoscopy Admitting Dept Virtual Department [address] [place] [phone] Social History Tobacco Use Types Packs/Day Years Used Date Smoking Tobacco: Never Smokeless Tobacco: Never Alcohol Use Standard Drinks/Week Comments Yes 0 (1 standard drink = 0.6 oz pur e alcohol) once a month Comments No Sex and Gender Information Value Date Recorded Sex Assigned at Female 11/28/2017 6:32 PM EDT Legal Sex Female 10:01 PM EDT Gender Identity Female 11/28/2017 6:32 PM EDT Sexual Orientation Bisexual 12/31/2017 8: 50 PM EDT documented as of this encounter Functional Status * Calculated C-SSRS Risk Score (Lifetime/Recent) Answer Date of Assessment Author Low Risk 12/10/2020 10:02 PM EDT Alirio Corado RN * [place] Suicide Severity Rating Scale (Screener/Recent Self-Report) Question Answer Date of Assessment Author 1. Wish to be (Past 1 Month) Yes 021 10:02 PM EDT Alirio Corado, CARLYLE 2. Non-Specific Active Suici reagan Thoughts (Past 1 Month) No 12/10/2020 10:02 PM EDT Yvonne Corado ea, RN 6. Suicidal Behavior (Lifetime) No 10:02 PM EDT Alirio Corado, RN documented as of this encounter Plan of Treatment Upcoming Encounters Date Type Department Care Team (Late st Contact Info) Description 08/22/2025 11:00 AM EST Office Visit [facility] Pulmonary, Allergy and Critical Care Medicine [address] [place] [address] Sampson Villa MD [address] [place] [address] 11/03/2025 1:40 PM EST Office Visit [facility] [address] [place] [address] [address]rd Floor, [address] [place] [phone] Enrike Beltrán MD [address] [place] [phone] [email or web address] documented as of this encounter Visit Diagnoses Not on filedocumented in this encounter Additional Health Concerns Infection Onset Date Last Indicated Resolved Time CoV-Risk Comment:Neg covid 09/12/2023 09/12/2023 09/13/2023 6:[address] CoV-Risk 01/05/2024 01/05/2024 01/16/2024 1:21 AM EDT documented as of this encounter Care Teams Finished Metal Repairer Relationship Specialty Start Date End Date Tyrone Barragan MD [address] [place] [phone] [email or web address] PCP - General Family Medicine 02/24/20 07/12/23 Jailene Jackson DO [address] [place] [address] PCP - General Family Medicine 07/13/23 Ravi Barker MD Endocrinology 12/06/17 Cecilia Epperson MD [address] [place] [address] Dr Vaca [address] [place] [address] General Surgery 12/06/17 Tere Hernandez PA-C [address] [place] [phone] [email or web address] Physician Chair Car Attendant Hematology 07/13/20 documented as of this encounter Additional Source Comments The information contained in this document represents components of the legal health record. It is not the complete legal health record.[facility]
--- OUTSIDE RECORDS SUMMARY | 2025-07-12 05:32 | XMS_ITS | Encounter Summary ---
Author Organization [facility] Address [address] [facility] [address] [place] [address] Phone Care Team Providers Care Floatman Name Role Phone Ravi Barker MD Unavailable Cecilia Epperson MD Unavailable [phone] Tyrone Barragan MD Primary Care Provider Tere Hernandez PA-C Unavailable [phone] Jailene Jackson DO Primary Care Provider Encounter Details Date Type Department Care Team (Latest Contact Info) Description 05/21/2021 Transcribe Orders [facility] Laboratory [address] [address] Alexa Peterson MD [address] [place] [address], 3 [place] [address] Stage 3a chronic kidney disease (Primary Dx); Hypomagnesemia; Hyperkalemia; Essential hypertension, malignant Social History Tobacco Use Types Packs/Day Years [...] PM EDT documented as of this encounter Plan of Treatment Upcoming Encounters Date Type Department Care Team (Late st Contact Info) Description 08/22/2025 11:00 AM EST Office Visit [facility] Pulmonary, Allergy and Critical Care Medicine [address] [place] [address] [place] [address] Sampson Villa MD 30 [place] [address] [email or web address] 11/03/2025 1:40 PM EST Office Visit [facility] [address] [facility] 3rd Floor, [address] [place] [address] Enrike Beltrán MD [address] [facility], [address] [place] [address] [email or web address] documented as of this encounter Results * (ABNORMAL) Microalbumin/creatinine ratio, random urine (05/21/2021 3:32 PM EDT) [facility] URINE MICROALBUMIN 2.5(H) 0 - 2.3 mg/dL [facility] URINE CREATININE 321 mg/dL [facility] MICROALB/CRE RATIO 7.8 0 - 20 mg/g Cre [facility] Urine (Urine) 05/21/2021 3:3 2 PM EDT 05/21/2021 4:09 PM EDT Alexa Peterson MD URINE ORDERABLES Final Result [facility] [address] [place] [address] * (ABNORMAL) CBC and differential (05/21/2021 3:32 PM EDT) Pathologist [facility] WBC 10.60 4.00 - 11.00 K/uL [facility] RBC 4.17 3.72 - 5.30 M/uL [facility] HGB 13.2 11.4 - 15.9 g/dL [facility] HCT 39.4 34.2 - 46.8 % [facility] PLT 265 140 - 430 K/uL [facility] MCV 94.5 78.0 - 97.0 fL [facility] MCH 31.7 25.0 - 33.0 pg [facility] MCHC 33.5 32.0 - 36.0 g/dL [facility] RDW 14.1 11.0 - 16.0 % [facility] MPV 10.5 8.4 - 12.8 fl [facility] NRBC 0.00 0 /100 WBCs [facility] ABSOLUTE NRBC 0.00 0 K/uL [facility] DIFF METHOD Auto [facility] NEUTS 74.4 43.0 - 75.0 % [facility] LYMPHS 17.2(L) 18.2 - 47.4 % [facility] MONOS 5.7 4.00 - 11.00 % [facility] EOS 1.5 0.0 - 8.0 % [facility] BASOS 0.7 0.0 - 2.0 % [facility] Granulocytes, immature (%) 0.5 0.0 - 0.9 % [facility] ABSOLUTE NEUTS 7.90(H) 1.80 - 7.70 K/uL [facility] ABSOLUTE LYMPHS 1.82 1.00 - 3.10 K/uL [facility] ABSOLUTE MONOS 0.60 0.20 - 0.80 K/uL [facility] ABSOLUTE EOS 0.16 0.00 - 0.80 K/uL [facility] ABSOLUTE BASOS 0.07 0.00 - 0.09 K/uL [facility] Granulocytes, immature 0.05 0.00 - 0.05 K/uL [facility] Blood 05/21/2021 3:32 PM EDT 05/21/2021 3:39 PM EDT us Alexa Peterson MD LAB BLOOD ORDERABLES Final Re sult [facility] [address] [place] [address] * Parathyroid hormone (PTH) (05/21/2021 3:32 PM EDT) PARATHYROID HORMONE 64 15 - 65 pg/mL [facility] Blood 05/21/2021 3:32 PM EDT 05/21/2021 3:40 PM EDT us Alexa Peterson MD LAB BLOOD ORDERABLES Final Re sult Performing Organization Address [facility]/ZIP Co de Phone Number [address] [address] * 25-OH vitamin D (05/21/2021 3:32 PM EDT) 25 OH VIT D (TOTAL) 46 30 - 60 ng/mL [facility] Blood 05/21/2021 3:32 PM EDT 05/21/2021 3:39 PM EDT Alexa Peterson MD LAB BLOOD ORDERABLES Final Re sult Performing Organization Address [facility] Co de Phone Number [address] [address] * Magnesium (05/21/2021 3:32 PM EDT) MAGNESIUM 1.7 1.6 - 2.6 mg/dL [facility] Blood 05/21/2021 3:32 PM EDT 05/21/2021 3:39 PM EDT Alexa Peterson MD LAB BLOOD ORDERABLES Final Re sult Performing Organization Address [facility] Co de Phone Number [address] [address] * (ABNORMAL) Renal panel (05/21/2021 3:32 PM EDT) SODIUM 140 133 - 146 mmol/L [facility] POTASSIUM 5.1 3.3 - 5.1 mmol/L [facility] CHLORIDE 101 96 - 108 mmol/L [facility] CO2 29 21 - 35 mmol/L [facility] GLUCOSE 108(H) 70 - 99 mg/dL [facility] BUN 20(H) 6 - 19 mg/dL [facility] CREATININE 1.10 0.5 - 1.5 mg/dL [facility] CALCIUM 10.1 8.4 - 10.3 mg/dL [facility] PHOSPHORUS 4.1 2.7 - 4.5 mg/dL [facility] ALBUMIN 4.2 3.9 - 4.8 g/dL [facility] EGFR 51(L) >59 mL/min/1.7 3m2 [facility] Comment:Estimated glomerular filtration rate calculated using the CKD-EPI equation. ANION GAP 15 10 - 20 mmol/L [facility] Blood 05/21/2021 3:32 PM EDT 05/21/2021 3:39 PM EDT us Alexa Peterson MD LAB BLOOD ORDERABLES Final Re sult [facility] [address] [place] [address] documented in this encounter Visit Diagnoses Diagnosis Stage 3a chronic kidney disease- Primary Hypomagnesemia Disorders of magnesium metabolism Hyperkalemia Hyperpotassemia Essential hypertension, malignant documented in this encounter Additional Health Concerns Infection Onset Date Last Indicated Resolved Time CoV-Risk Comment:Neg covid 09/12/2023 09/12/2023 09/13/2023 6:[address] CoV-Risk 01/05/2024 01/05/2024 01/16/2024 1:21 AM EDT documented as of this encounter Care Teams Floatman Relationship Specialty Start Date End Date Tyrone Barragan MD [address] [place] [address] [email or web address] PCP - General Family Medicine 02/24/20 07/12/23 Jailene Jackson DO [address] [place] [address] PCP - General Family Medicine 07/13/23 Ravi Barker MD [email or web address] Endocrinology 12/06/17 Cecilia Epperson MD [address] [place] [address] Dr Vaca [address] [place] [address] General Surgery 12/06/17 Tere Hernandez PA-C [address] [place] [email or web address] Physician Teacher [employer] Hematology 07/13/20 documented as of this encounter Additional Source Comments The information contained in this document represents components of the legal health record. It is not the complete legal health record.[facility]
--- OUTSIDE RECORDS SUMMARY | 2025-07-12 05:32 | XMS_ITS | Encounter Summary ---
Author Organization [facility], Address [address] [place] [address] Phone Care Team Providers Care Small Business Representative Name Role Phone Jailene Jackson DO Primary Care Provider [phone] Encounter Details Date Type Department Care Team (Late st Contact Info) Description 03/04/2025 Documentation Only [facility] [address] [place] [address] Bel Mccarty [address] [place] [address] Social History Tobacco Use Types Packs/Day Years Used Date Smoking Tobacco: Never Smokeless Tobacco: Never Alcohol Use Standard Drinks/Week Comments Yes 0 (1 standard drink = 0.6 oz pure alcohol) Alcoholic Drinks/day: Occasional social drink Comments Unknown Sex and Gender Information Value Date Recorded Sex Assigned at Not on file Legal Sex Female 4:36 PM EST Gender Identity Not on file Sexual Orientation Not on file documented as of this encounter Plan of Treatment Upcoming Encounters Date Type Department Care Team (Late st Contact Info) Description 04/16/2026 1:45 PM EDT [facility] [address] [place] [address] Marvin Lew MD [address] [facility] [place] [phone] documented as of this encounter Visit Diagnoses Not on filedocumented in this encounter Care Teams Small Business Representative Relationship Specialty Start Date End Date Jailene Jackson DO [address] [place] [phone] PCP - General Family Medicine 02/29/24 documented as of this encounter
--- OUTSIDE RECORDS SUMMARY | 2025-07-12 05:32 | XMS_ITS | Encounter Summary ---
Author Organization [facility] Address [address] [facility] [address] [place] [address] Phone Care Team Providers Care Firearms Instructor Name Role Phone Wisam Lopez MD Primary Care Provider Ravi Barker MD Unavailable [phone] Cecilia Epperson MD Unavailable [phone] Tyrone Barragan MD Primary Care Provider [phone] Tere Hernandez PA-C Unavailable [phone] Jailene Jackson DO Primary Care Provider [phone] Encounter Details Date Type Department Care Team (Latest Contact Info) Description 12/13/2018 Ancillary Orders Virtual Department [address] [place] [address] Rafiq Jeronimo MD [address] [place] [id number] [email or web address] Nausea and vomiting, intractability of vomiting not specified, unspecified vomiting type; Weight loss Social History Tobacco Use Types Packs/Day Years Used Date Smoking Tobacco: Never Smokeless Tobacco: Never Alcohol Use Standard Drinks/Week Comments No 0 (1 standard drink = 0.6 oz pur e alcohol) Comments Unknown Sex and Gender Information Value [...] Description 08/22/2025 11:00 AM EST Office Visit [facility] Pulmonary, Allergy and Critical Care Medicine [address] [place] [address] Sampson Villa MD [address] [place] [address] 11/03/2025 1:40 PM EST Office Visit [facility] [address] [place] [address] 3rd Floor, [address] [place] [address] Enrike Beltrán MD [address] [facility] [address] [place] [address] [email or web address] documented as of this encounter Results * FL UGI SERIES DOUBLE CONTRAST (12/13/2018 10:14 AM EDT) Anatomical Region Laterality Modality Abdomen Radiographic Sahra ging 12/13/2018 9:47 AM EDT Impressions 12/13/2018 11:15 AM EDT Dilated, flaccid thoracic esophagus representing a progression from 12/08/2017. There is no obvious stricture at the gastroesophageal junction and no specific findings of achalasia. Significant spontaneous gastroesophageal reflux without esophageal mucosal ulcerations. Additional findings suspicious for proximal gastric ulcer, difficult to confirm on the background of post-surgical change although the appearance is not duplicated on the previous study of 2018. Endoscopy versus follow-up upper GI series after appropriate medical therapy could be considered. No findings of gastric outlet obstruction. FLUOROSCOPY TIME: 3 min. 2 sec; 98 IMAGES/FRAMES POS - [id number] Narrative 12/13/2018 11:15 AM EDT COMPARISON: 12/08/2017 FINDINGS: A preliminary AP view of the abdomen is unchanged. A standard double contrast study was performed and recorded on digital rapid sequence, spot, and overhead views. Following ingestion of the contrast mixture deglutition was assessed fluoroscopically. There was tongue base overflow into the valleculae and piriform sinuses prior to initiation of the swallow but once swallow was triggered no aspiration or deandre cricopharyngeal achalasia were identified. There is progressive diffuse thoracic esophageal distention with an overall flaccid appearance and paucity of primary and secondary stripping waves. No tertiary contractions are identified currently and the gastroesophageal junction appeared patent without evidence of achalasia. There was spontaneous reflux to the level of the aortic arch during the course of the examination but no esophageal mucosal ulceration was identified. The stomach and duodenal cap filled moderately well. Postsurgical changes are again evident. There appears to be a small outpouching of barium along the greater curvature of the proximal stomach which may represent a subtle change from the previous examination. There is also some deformity of the greater curvature in the mid body of the stomach which is somewhat more equivocal for ulcer. Distal stomach, antrum, and duodenal cap displayed normal mucosal contour. No evidence of gastric outlet obstruction. Utilized proximal small bowel was unremarkable. Procedure Note Suleiman Felix MD - 12/13/2018 COMPARISON: 12/08/2017 FINDINGS: A preliminary AP view of the abdomen is unchanged. A standard doublecontrast study was performed and recorded on digital rapid sequence, spot,and overhead views. Following ingestion of the contrast mixture deglutition was assessedfluoroscopically. There was tongue base overflow into the valleculae andpiriform sinuses prior to initiation of the swallow but once swallow wastriggered no aspiration or deandre cricopharyngeal achalasia wereidentified. There is progressive diffuse thoracic esophageal distentionwith an overall flaccid appearance and paucity of primary and secondarystripping waves. No tertiary contractions are identified currently andthe gastroesophageal junction appeared patent without evidence ofachalasia. There was spontaneous reflux to the level of the aortic archduring the course of the examination but no esophageal mucosal ulcerationwas identified. The stomach and duodenal cap filled moderately well. Postsurgical changesare again evident. There appears to be a small outpouching of bariumalong the greater curvature of the proximal stomach which may represent asubtle change from the previous examination. There is also some deformityof the greater curvature in the mid body of the stomach which is somewhatmore equivocal for ulcer. Distal stomach, antrum, and duodenal capdisplayed normal mucosal contour. No evidence of gastric outletobstruction. Utilized proximal small bowel was unremarkable. IMPRESSION: Dilated, flaccid thoracic esophagus representing a progression from12/08/2017. There is no obvious stricture at the gastroesophagealjunction and no specific findings of achalasia. Significant spontaneousgastroesophageal reflux without esophageal mucosal ulcerations. Additional findings suspicious for proximal gastric ulcer, difficult toconfirm on the background of post-surgical change although the appearanceis not duplicated on the previous study of 2017. Endoscopy versusfollow-up upper GI series after appropriate medical therapy could beconsidered. No findings of gastric outlet obstruction. FLUOROSCOPY TIME: 3 min. 2 sec; 98 IMAGES/FRAMES POS - [id number] Rafiq Jeronimo MD IMG FL MISC Final Result documented in this encounter Visit Diagnoses Diagnosis Nausea and vomiting, intractability of vomiting not specified, unspecified vomiting type Weight loss Loss of weight Nausea and vomiting, intractability of vomiting not specified, unspecified vomiting type Weight loss Loss of weight documented in this encounter Additional Health Concerns Infection Onset Date Last Indicated Resolved Time CoV-Risk 09/07/2020 09/07/2020 09/21/2020 1:24 AM EST CoV-Risk Comment:Neg covid 09/12/2023 09/12/2023 09/13/2023 6:[address] CoV-Risk 01/05/2024 01/05/2024 01/16/2024 1:21 AM EDT documented as of this encounter Care Teams Firearms Instructor Relationship Specialty Start Date End Date Wisam Lopez MD [email or web address] PCP - General Family Medicine 08/19/17 02/23/20 Tyrone Barragan MD [address] [place] [phone] [email or web address] PCP - General Family Medicine 02/24/20 07/12/23 Jailene Jackson DO [address] [place] [id number] PCP - General Family Medicine 07/13/23 Ravi Barker MD Endocrinology 12/06/17 Cecilia Epperson MD [address] [place] [address] [place] [address] General Surgery 12/06/17 Tere Hernandez PA-C [address] [place] [address] Physician Automotive Parts Person Hematology 07/13/20 documented as of this encounter Additional Source Comments The information contained in this document represents components of the legal health record. It is not the complete legal health record.[facility]
--- OUTSIDE RECORDS SUMMARY | 2025-07-12 05:32 | XMS_ITS | Encounter Summary ---
Author Organization [facility] Address [address] [facility] [address] [place] [address] Phone Care Team Providers Care Director Business Name Role Phone Ravi Barker MD Unavailable Cecilia Epperson MD Unavailable Tere Hernandez PA-C Unavailable [phone] Jailene Jackson DO Primary Care Provider Encounter Details Date Type Department Care Team (Latest Contact Info) Description 04/08/2025 Transcribe Orders [facility] Laboratory [address] 2nd [place] [address] Marvin Lew MD [address] [facility] [address] [place] [address] Stage 3a chronic kidney disease (Primary Dx) Social History Tobacco Use Types Packs/Day Years [...] as food, clothing, or medical care? No 01/22/2025 In the past 12 months have y ou been in a relationship with a person who hurts, threatens, or tries to control you? No 01/22/2025 Are you denied basic needs s uch as food, clothing, or medical care? No 01/22/2025 In the past 12 months have y ou been in a relationship with a person who hurts, threatens, or tries to control you? No 01/22/2025 Comments No Sex and Gender Information Value Date Recorded Sex Assigned at Female 11/28/2017 6:32 PM EDT Legal Sex Female 10:01 PM EDT Gender Identity Female 11/28/2017 6:32 PM EDT Sexual Orientation Bisexual 12/31/2017 8: 50 PM EDT documented as of this encounter Plan of Treatment Upcoming Encounters Date Type Department Care Team ([facility] st Contact Info) Description 08/22/2025 11:00 AM EST Office Visit [facility] Pulmonary, Allergy and Critical Care Medicine [address] [place] [address] Sampson Villa MD [address] [place] [address] 11/03/2025 1:40 PM EST Office Visit [facility] [address] [facility] 3rd Floor, [address] [place] [address] Enrike Beltrán MD [address] [facility], [address] [place] [address] [email or web address] documented as of this encounter Results * (ABNORMAL) TOTAL PROTEIN CREATININE RATIO, RANDOM URINE (04/14/2025 1:56 PM EDT) URINE TOTAL PROTEIN 29.0 mg/dL [facility] URINE CREATININE 142 mg/dL [facility] URINE TP CRE RATIO 0.20(H) 0 - 0.19 [facility] Urine (Urine) 04/14/2025 1:5 6 PM EDT 04/14/2025 2:25 PM EDT us Marvin Lew MD URINE ORDERABLES Final Result Performing Organization Address City/State/[facility] Co de Phone Number [facility] [address] [place] [address] * (ABNORMAL) Urinalysis (04/14/2025 1:56 PM EDT) COLOR Yellow Yellow [facility] CLARITY Clear [facility] GLUCOSE Negative Negative [facility] BILI 1+(A) Negative [facility] Comment:Corrected on 04/14 A T 1615: previously reported as Negative KETONES Negative Negative [facility] SPECIFIC GRAVITY 1.025 1.005 - 1.030 [facility] BLOOD Negative Negative [facility] PH 6.0 5.0 - 8.0 [facility] Comment:Corrected on 04/14 A T 1615: previously reported as 5.5 Protein-UA Negative Negative [facility] Comment:Corrected on 04/14 A T 1615: previously reported as Trace NITRITE Negative Negative [facility] Leukocyte esterase, ur Negative Negative [facility] Urine (Urine) 04/14/2025 1:5 6 PM EDT 04/14/2025 2:26 PM EDT us Marvin Lew MD URINE ORDERABLES Edited Result - Final Performing Organization Address [facility] de Phone Number [address] [address] * (ABNORMAL) Hemoglobin A1c (04/08/2025 3:17 PM EDT) HEMOGLOBIN A1C 6.6(H) 4.3 - 5.8 % [facility] Blood 04/08/2025 3:17 PM EDT 04/08/2025 3:39 PM EDT us Marvin Lew MD LAB BLOOD ORDERABLES Final Resul t Performing Organization Address [facility] de Phone Number [address] [address] * (ABNORMAL) 25-OH vitamin D (04/08/2025 3:17 PM EDT) 25 OH VIT D (TOTAL) 91(H) 30 - 60 ng/mL [facility] Blood 04/08/2025 3:17 PM EDT 04/08/2025 3:38 PM EDT us Marvin Lew MD LAB BLOOD ORDERABLES Final Resul t Performing Organization Address [facility] de Phone Number [address] [address] documented in this encounter Visit Diagnoses Diagnosis Stage 3a chronic kidney disease- Primary documented in this encounter Care Teams Director Business Relationship Specialty Start Date End Date Jailene Jackson DO [address] [place] [address] [email or web address] PCP - General Family Medicine 07/13/23 Ravi Barker MD Endocrinology 12/06/17 Cecilia Epperson MD [address] [place] [address] [place] [address] General Surgery 12/06/17 Tere Hernandez PA-C [address] [place] [address] [email or web address] Physician Joint Creaser Hematology 07/13/20 documented as of this encounter Additional Source Comments The information contained in this document represents components of the legal health record. It is not the complete legal health record.[facility]
--- OUTSIDE RECORDS SUMMARY | 2025-07-12 05:32 | XMS_ITS | Encounter Summary ---
Author Organization [facility], Address [address] [place] [address] Phone Care Team Providers Care Weave Room Supervisor Name Role Phone Jailene Jackson DO Primary Care Provider [phone] Encounter Details Date Type Department Care Team (Late st Contact Info) Description 02/29/2024 Documentation Only [facility], [address] [place] [address] Bel Mccarty [address] [place] [phone] Social History Tobacco Use Types Packs/Day [...] Visit [facility] [address] [place] [phone] Marvin Lew MD [address] [place] [address] [place] [address] documented as of this encounter Visit Diagnoses Not on filedocumented in this encounter Care Teams Weave Room Supervisor Relationship Specialty Start Date End Date Jailene Jackson DO [address] [place] [phone] PCP - General Family Medicine 02/29/24 documented as of this encounter
--- OUTSIDE RECORDS SUMMARY | 2025-07-12 05:32 | XMS_ITS | Encounter Summary ---
Author Organization [facility] Address [address] [place] [address] Phone Care Team Providers Care Supervisor Bleach Plant Name Role Phone Ravi Barker MD Unavailable Cecilia Epperson MD Unavailable [phone] Tyrone Barragan MD Primary Care Provider [phone] Tere Hernandez PA-C Unavailable [phone] Jailene Jackson DO Primary Care Provider [phone] Encounter Details Date Type Department Care Team (Late st Contact Info) Description 09/07/2020 Procedure [facility], Ct Scan - [address] [address] Social History Tobacco Use Types Packs/Day Years Used Date Smoking Tobacco: Never Smokeless Tobacco: Never Alcohol Use Standard Drinks/Week Comments Yes 0 (1 standard drink = 0.6 oz pur e alcohol) Very rare Comments Unknown Sex and Gender Information Value Date Recorded Sex Assigned at Female 11/28/2017 6:32 PM EDT Legal Sex Female 10:01 PM EDT Gender Identity Female 11/28/2017 6:32 PM EDT Sexual Orientation Bisexual 12/31/2017 8: 50 PM EDT documented as of this encounter Functional Status * Calculated C-SSRS Risk Score (Lifetime/Recent) Answer Date of Assessment Author No Risk Indicated 09/07/2020 1:32 PM Nirali Du RN * [place] Suicide Severity Rating Scale (Screener/Recent Self-Report) Question Answer Date of Assessment Author 1. Wish to be (Past 1 Month) No 09/07/2020 1:32 PM Aida Cardoza, CARLYLE 2. Non-Specific Active Suicidal Thoughts (Past 1 Month) No 09/07/2020 1:32 PM Aida Cardoza, RN 6. Suicidal Behavior (Lifetime) No 09/07/2020 1:32 PM Aida Cardoza RN documented as of this encounter Plan of Treatment Upcoming Encounters Date Type Department Care Team (Late st Contact Info) Description 08/22/2025 11:00 AM EST Office Visit [facility] Pulmonary, Allergy and Critical Care Medicine [address] [place] [address] Sampson Villa MD [address] [place] [address] [email or web address] 11/03/2025 1:40 PM EST Office Visit [facility] [address] [place] [address] 3rd Floor, [address] [place] [address] Enrike Beltrán MD [address] [place] [address] [email or web address] documented as of this encounter Visit Diagnoses Not on filedocumented in this encounter Additional Health Concerns Infection Onset Date Last Indicated Resolved Time CoV-Risk 09/07/2020 09/07/2020 09/21/2020 1:24 AM EST CoV-Risk Comment:Neg covid 09/12/2023 09/12/2023 09/13/2023 6:[address] CoV-Risk 01/05/2024 01/05/2024 01/16/2024 1:21 AM EDT documented as of this encounter Care Teams Supervisor Bleach Plant Relationship Specialty Start Date End Date Tyrone Barragan MD [address] [place] [address] [email or web address] PCP - General Family Medicine 02/24/20 07/12/23 Jailene Jackson DO [address] [place] [address] PCP - General Family Medicine 07/13/23 Ravi Barker MD Endocrinology 12/06/17 Cecilia Epperson MD [address] [place] [address] [place] [address] General Surgery 12/06/17 Tere Hernandez PA-C [address] [place] [address] Physician Assistant Grocery Hematology 07/13/20 documented as of this encounter Additional Source Comments The information contained in this document represents components of the legal health record. It is not the complete legal health record.[facility]
--- OUTSIDE RECORDS SUMMARY | 2025-07-12 05:32 | XMS_ITS | Clinical Summary ---
Author Organization [facility], Address [address] [place] [address] Phone Care Team Providers Care Diesel Technician Mechanic Name Role Phone [email or web address] Primary Care Provider [phone] Allergies Active Allergy Reactions Criticality Noted Date Comments Aspirin 11/18/2022 Other reaction(s): taking celebrex Azithromycin Other (see comments) 12/09/2020 Unknown to pt Celecoxib High 09/16/2023 Other Reaction(s): Acute Interstitial Nephritis Patient denies this allergy Erythromycin Other (see comments) 08/19/2017 Other reaction(s): GI upset, gut Other reaction(s): GI upset Liraglutide Other (see comments) 08/19/2017 Other reaction(s): ileus Other reaction(s): ileus Sulfa Antibiotics Rash Low 08/19/2017 Other reaction(s): rash Other reaction(s): rash Medications FLUoxetine (PROzac) 20 MG capsule Take 3 capsules by mouth 1 (one) time each day 7 Active latanoprost (XALATAN) 0.005 % ophthalmic solution Administer 1 drop into both eyes 1 (one) time each day 7 Active albuterol HFA (PROVENTIL HFA;VENTOLIN HFA) 108 (90 Base) MCG/ACT inhaler Inhale 1 puff every 4 (four) hours Active celecoxib (CeleBREX) 200 MG capsule Take 1 capsule by mouth 1 (one) time each day 6 Active esomeprazole (NexIUM) [address] capsule Take 1 capsule by mouth 2 (two) times a day 7 Active fluticasone (FLONASE) 50 MCG/ACT nasal spray Administer 1 spray into each nostril 2 (two) times a day 7 Active ergocalciferol (VITAMIN D2) 1.25 MG (27769 UT) capsule Take 50,000 Units by mouth 1 (one) time per week 9 Active traZODone (DESYREL) 100 MG tablet 200 mg 0 Active ondansetron (ZOFRAN) 4 MG tablet 1 TABLET BY MOUTH 3X DAILY NEEDED FOR NAUSEA 0 Active bisacodyl (DULCOLAX) 10 MG suppository Insert 10 mg into the rectum 0 Active acetaminophen (TYLENOL) 325 MG tablet Take 650 mg by mouth every 6 (six) hours if needed 0 Active biotin 1000 MCG tablet Take 1,000 mcg by mouth daily Active famotidine (PEPCID) 40 MG tablet Take 40 mg by mouth 1 (one) time each day in the evening 1 Active Restasis 0.05 % ophthalmic emulsion USE IN BOTH EYES TWICE A DAY FOR 3 MONTHS 2 Active traMADol (ULTRAM) 50 MG tablet if needed 3 Active LORazepam (ATIVAN) 0.5 MG tablet if needed 3 Active amLODIPine (NORVASC) 5 MG tablet TAKE 1 TABLET BY MOUTH 1 TIME EACH DAY. 90 tablet 3 3 Active atorvastatin (LIPITOR) 40 MG tablet Take 40 mg by mouth 1 (one) time each day 3 Active lamoTRIgine (LaMICtal) 100 MG tablet Take 100 mg by mouth 1 (one) time each day 3 Active levothyroxine (SYNTHROID, LEVOTHROID) 112 MCG tablet 3 Active meclizine (ANTIVERT) 12.5 MG tablet 3 Active furosemide (LASIX) 40 MG tablet Take 40 mg by mouth 1 (one) time each day 4 Active Active Problems Problem Noted Date Diagnosed Date Essential hypertension 11/21/2022 Iron deficiency anemia 06/28/2022 Hyperlipidemia 06/12/2020 Overview (12/09/2020): Last Assessment & Plan: Hold statin with transaminitis. Total cholesterol is low at 117 and LDL is 47. I think it is reasonable to discontinue the statin on discharge and monitor her lipid panel Anemia 02/24/2020 Overview (12/09/2020): Last Assessment & Plan: Baseline based on chart review appears that she her hemoglobin is around 10, most recently hemoglobin was 8.6 at [facility] prior to admission. She denies any hematochezia or melena. She denies hematemesis or coffee-ground emesis. Iron studies showed normal iron level, low ferritin, not suggestive of iron deficiency. Her last EGD was 1 year ago and last colonoscopy was 3 years ago that reportedly had an adenomatous polyp. Fecal occult blood testing is pending, if positive will consult GI for further work-up and management. Otherwise, we will continue to trend CBC which has been stable at 8.1 this morning, transfuse for hemoglobin less than 7 or with symptoms. Consider IV iron supplementation prior to discharge as patient may potentially have decreased absorption with her gastric sleeve, although this is less likely as she does not have a bypass, or impaired absorption. Last Assessment & Plan: Baseline based on chart review appears that she her hemoglobin is around 10, most recently hemoglobin was 8.6 at [facility] prior to admission. She denies any hematochezia or melena. She denies hematemesis or coffee-ground emesis. Iron studies showed normal iron level, low ferritin, not suggestive of iron deficiency. Her last EGD was 1 year ago and last colonoscopy was 3 years ago that reportedly had an adenomatous polyp. Fecal occult blood testing is pending, if positive will consult GI for further work-up and management. Otherwise, we will continue to trend CBC which has been stable at 8.1 this morning, transfuse for hemoglobin less than 7 or with symptoms. Consider IV iron supplementation prior to discharge as patient may potentially have decreased absorption with her gastric sleeve, although this is less likely as she does not have a bypass, or impaired absorption. Hypomagnesemia 09/09/2019 Overview (12/09/2020): Last Assessment & Plan: - magnesium level improved but still feeling weak - repleting potassium today - check pth and urinary mg as recommended by Dr. Jeronimo Last Assessment & Plan: Continue with oral supplementation Hyperkalemia 09/09/2019 Stage 3a chronic kidney disease 09/09/2019 Overview (12/09/2020): Update for Diagnosis Load Baseline GFR 59 mg/dL Last Assessment & Plan: Creatinine stable Trend BMP Hypertensive renal disease 09/09/2019 Nephrolithiasis 09/09/2019 Renal disorder due to type 2 diabetes mellitus 1 Other constipation 12/10/2017 Overview (09/09/2019): Last Assessment & Plan: Bowel regimen Hypothyroidism 12/06/2017 Overview (12/09/2020): Last Assessment & Plan: Synthroid dose was decreased 2 weeks ago. -Continue thyroid replacement Last Assessment & Plan: TSH elevated, but normal free T4. This could be a subclinical hypothyroidism or could be a euthyroid sick syndrome. This could be followed as an outpatient with adjustments of her Synthroid completed at follow-up. Last Assessment & Plan: Continue levothyroxine as prescribed, TSH appropriate Hypertensive disorder 12/06/2017 Overview (11/18/2022): Last Assessment & Plan: Well controlled. Cont norvasc. May consider restarting lisinopril if elevated this afternoon. -Check BMP 1 days time -Patient had a bare apparently not been taking Norvasc as an outpatient will consider discontinuing when resumption of Vincent begins Last Assessment & Plan: - cont lisinopril 10 - increased amlodipine -blood pressures better today, hold off on further increase Last Assessment & Plan: Blood pressure is controlled. Continue amlodipine as prescribed. There is some concern the patient may have experienced an ischemic hepatitis. If the patient's blood pressures run low, consider discontinuing or lowering the dose of the amlodipine. Renal function is stable. Type 2 diabetes mellitus 12/06/2017 Overview (12/09/2020): Last Assessment & Plan: Holding metformin. -Cont HISS. Complicated by nephropathy and retinopathy Last Assessment & Plan: She is chronically on metformin. -cont holding metformin - blood sugars acceptable for now, cont insulin sliding scale Complicated by nephropathy and retinopathy Last Assessment & Plan: Holdign Metformin Monitor [id number] with insulin sliding scale coverage, institute basal- bolus insulin protocol depending on trend of POC's and oral intake. Hemoglobin A1c in prediabetic range at 6.0%. Resolved Problems Problem Noted Date Diagnosed Date Resolved Date Proteinuria 09/09/2019 12/31/2019 Encounters Date Type Department Care Team Description 04/16/2025 3:00 PM EDT Office Visit [facility] - [address] [place] [address] Marvin Lew MD Stage 3a chronic kidney disease (HCC) (Primary Dx); Hypertensive disorder from Last 3 Months Immunizations Immunization Administration Dates Next Due Influenza (IM) Preservative Free 05/12/2022,07/13,06/11/2012 Influenza Split High Dose Pr eservative Free IM 06/17/2020,07/29/2019,07/17/2019,06/22,09/11/2017,08/23/2017,07/28/2016 Influenza TIV (IM) 07/22/2011,07/01/2010, 009 Influenza Vaccine, Quadrival ent, Adjuvanted 06/14/2021 Influenza, Quadrivalent, Pre servative Free 07/31/2015,09/09/2014 Influenza, Unspecified 07/15/2023,2021,06/17/2020,07/01,07/18/2008,07/25/2007,07/28/2006 ,06/15/2004,07/31/2003,07/22/2002,08/11,09/29/2000 Modern SARS-COV-2 11/29/2020 Pfizer SARS-COV-2 08/11/2022 Pneumococcal Conjugate 13-Valent 06/10/2020,/,03/17/2015 Pneumococcal Polysaccharide 01/12/2018, 5 Shingrix 01/27/2021,06/10/2020 Td 04/02/2019 Td, Unspecified 01/12/2019 Tdap 11/25/2008 Zoster 06/10/2020 Family History Medical History Relation Comments Diabetes Father Gout Father Hypertension Father Kidney disease Father Dementia Mother early stages Hypertension Mother Heart disease Paternal Grandfather Heart disease Paternal Grandmother Diabetes Sister x2 Relation Status Comments Father Mother Alive Paternal Grandfather Paternal Grandmother Sister Social History Tobacco Use Types Packs/Day Years [...] on file Sexual Orientation Not on file Last Filed Vital Signs Vital Sign Reading Time Taken Comments Blood Pressure 128/68 11/21/2022 2:47 PM EDT Pulse 68 11/21/2022 2:47 PM EDT Temperature 36.7 C (98 F) 09/10/2019 2:19 PM EST Respiratory Rate 14 11/21/2022 2:47 PM EDT Oxygen Saturation - - Inhaled Oxygen Concentration - - Weight 68 kg (150 lb) 11/21/2022 2:47 PM EDT Height 157.5 cm (5' 2 ) 11/21/2022 2:47 PM EDT Body Mass Index 27.44 11/21/2022 2:47 PM EDT Plan of Treatment Upcoming Encounters Date Type Department Care Team (Late st Contact Info) Description 04/16/2026 1:45 PM EDT [facility] [address] [place] [address] Marvin Lew MD [address] [place] [address] Health Maintenance Due Date Last Done Comments Breast Cancer Screening 1950 Colorectal Cancer Screening: Annual FOBT 2000 Colorectal Cancer Screening: Colonoscopy 2000 Colorectal Cancer Screening: Sigmoidoscopy 2000 Diabetes: Hemoglobin A1C 09/09/2019 10/23/2017 Diabetes: Ophthalmology Exam 09/09/2019 Diabetes: Pedal Pulse Checked 09/09/2019 Diabetes: Sensory Foot Exam 09/09/2019 Diabetes: Visual Foot Exam 09/09/2019 Influenza Vaccine (#1) 2025 3, 06/22/2022, 05/12/2022, Additional history exists Pneumococcal Vaccine: 50+ Years Completed 06/10/2020, 06/10/2020, 01/12/2018, Additional history exists Pneumococcal Vaccine: Peds (0 to 5 Years) and At-Risk Patients (6 to 49 Years) Discontinued 06/10/2020, 06/10/2020, 01/12/2018, Additional history exists Hepatitis B Vaccine Aged Out No longe r eligible based on patient's age to complete this topic Procedures Procedure Name Priority Date/Time Associated Diagnosis Comments LAB ASTROPHYSICS TEACHER Routine 10/23/2017 3:00 PM EST from Last 3 Months or Most Recently Relevant to Health Maintenance Results * (ABNORMAL) Lab Burr Sander (10/23/2017 3:00 PM EST) Sodium 141 133 - 145 mmol/L [facility] Carbon Dioxide (CO2) 24 22 - 29 mmol/L [facility] Calcium 9.7 8.4 - 10.2 mg/dL [facility] WBC 9.5 4.5 - 11.0 K/uL [facility] Potassium 4.5 3.6 - 5.2 mmol/L [facility] Creatinine 1.1 0.4 - 1.1 mg/dL [facility] Cholesterol, Total 201 mg/dl [facility] PTH 41.1 pg/ml [facility] GFR Calculated 55.7 ml/min [facility] Phosphorus, Serum 4.00 2.5 - 4.5 mg/dL [facility] Hgb 9.8(L) 12.0 - 16.0 g/dL [facility] Triglycerides 285 mg/dl [facility] HDL 52 mg/dl [facility] BUN 19 8 - 23 mg/dL [facility] Hematocrit 33.0 % [facility] Platelets 423.0 150 - 450 K/uL [facility] Glucose 150 mg/dl [facility] LDL-Calc 111 mg/dl [facility] Hemoglobin A1C 6.6 % [facility] 10/23/2017 3:00 PM EST [facility] Conversion LAB [id number] LICITED RESULTS Final Result [facility] from Last 3 Months or Most Recently Relevant to Health Maintenance Insurance Medicare [facility] Care Teams Diesel Technician Mechanic Relationship Specialty Start Date End Date Jailene Jackson DO [address] [place] [address] PCP - General Family Medicine 02/29/24
--- OUTSIDE RECORDS SUMMARY | 2025-07-12 05:32 | XMS_ITS | Encounter Summary ---
Author Organization [facility] Address [address] [place] [address] Phone Care Team Providers Care Director Of Manufacturing Operations Name Role Phone Ravi Barker MD Unavailable [phone] Cecilia Epperson MD Unavailable Tyrone Barragan MD Primary Care Provider Tere Hernandez PA-C Unavailable [phone] Jailene Jackson DO Primary Care Provider Encounter Details Date Type Department Care Team (Latest Contact Info) Description 04/28/2021 Transcribe Orders [facility] [address]nd [place] [address] Rafiq Jeronimo MD [address] [facility] [address] [place] [address] [email or web address] Iron deficiency anemia, unspecified iron deficiency anemia type (Primary Dx) Social History Tobacco Use Types [...] Critical Care Medicine [address] [place] [address] [place] [address] Sampson Villa MD [address] [place] [address] 11/03/2025 1:40 PM EST Office Visit [facility] [address] [place] [address] 3rd Floor, [address] [place] [address] Enrike Beltrán MD 22 [facility], [address] [address] [email or web address] documented as of this encounter Results * (ABNORMAL) LFTs (hepatic panel) (04/28/2021 3:45 PM EDT) [facility]ALINE PHOSPHATASE 113 39 - 117 U/L [facility] TOTAL BILIRUBIN 0.2 0.0 - 1.2 mg/dL [facility] DIRECT BILIRUBIN <0.2 0 - 0.3 mg/dL [facility] Bilirubin (Indirect) NOT CALCULATED 0 - 1.5 mg/dL [facility] AST 41(H) 0 - 37 U/L [facility] ALT 12 0 - 40 U/L [facility] TOTAL PROTEIN 7.1 6.5 - 8.0 g/dL [facility] ALBUMIN 3.9 3.9 - 4.8 g/dL [facility] GLOBULIN 3.2 1 - 4.8 g/dL [facility] A/G Ratio 1.22 1.00 - 4.80 RATIO [facility] Blood 04/28/2021 3:45 PM EDT 04/28/2021 3:50 PM EDT us Rafiq Jeronimo MD LAB BLOOD ORDERABLES Final Re sult [facility] [address] [place] [address] documented in this encounter Visit Diagnoses Diagnosis Iron deficiency anemia, unspecified iron deficiency anemia type- Primary documented in this encounter Additional Health Concerns Infection Onset Date Last Indicated Resolved Time CoV-Risk Comment:Neg covid 09/12/2023 09/12/2023 09/13/2023 6:[address] CoV-Risk 01/05/2024 01/05/2024 01/16/2024 1:21 AM EDT documented as of this encounter Care Teams Director Of Manufacturing Operations Relationship Specialty Start Date End Date Tyrone Barragan MD [address] [place] [address] [email or web address] PCP - General Family Medicine 02/24/20 07/12/23 Jailene Jackson DO [address] [place] [address] PCP - General Family Medicine 07/13/23 Ravi Barker MD Endocrinology 12/06/17 Cecilia Epperson MD [address] [place] [address] [place] [address] General Surgery 12/06/17 Tere Hernandez PA-C [address] [place] [address] Physician Mail Distribution Clerk Hematology 07/13/20 documented as of this encounter Additional Source Comments The information contained in this document represents components of the legal health record. It is not the complete legal health record.[facility]
--- OUTSIDE RECORDS SUMMARY | 2025-07-12 05:32 | XMS_ITS | Encounter Summary ---
Author Organization [facility], Address [address] [place] [address] Phone Care Team Providers Care Manager Transfer Name Role Phone Jailene Jackson DO Primary Care Provider [phone] Encounter Details Date Type Department Care Team (Late st Contact Info) Description 08/30/2023 Documentation Only [facility] [address] [place] [address] Marvin Lew MD [address] [place] [address] [place] [address] Social History Tobacco Use Types Packs/Day Years [...] Visit [facility] [address] [place] [address] Marvin Lew MD [address] [place] [address] [place] [address] documented as of this encounter Visit Diagnoses Not on filedocumented in this encounter Care Teams Manager Transfer Relationship Specialty Start Date End Date Jailene Jackson DO [address] [place] [phone] PCP - General Family Medicine 02/29/24 documented as of this encounter
--- OUTSIDE RECORDS SUMMARY | 2025-07-12 05:32 | XMS_ITS | Encounter Summary ---
Author Organization [facility] Address [address] [place] [address] Phone Care Team Providers Care Toggler Name Role Phone Ravi Barker MD Unavailable Cecilia Epperson MD Unavailable Tere Hernandez PA-C Unavailable [phone] Jailene Jackson DO Primary Care Provider Encounter Details Date Type Department Care Team (Late st Contact Info) Description 07/03/2024 Procedure Pass [facility] Endoscopy Admitting Dept Virtual Department [address] [place] [address] Social History Tobacco Use Types Packs/Day Years Used Date Smoking Tobacco: Never Smokeless Tobacco: Never Alcohol Use Standard Drinks/Week Comments Yes 0 (1 standard drink = 0.6 oz pur e alcohol) once a month Education Answer Date Recorded Are you interested in more education? Not on mariajose e 01/06/2023 Are you concerned about learning? Not on file 01/06/2023 No 01/06/2023 No 01/06/2023 Digital Access Answer Date Recorded No 02/04/2023 No 02/04/2023 Reliable internet access at home? Not on file 02/04/2023 Device with a working camera? Not on file Intimate Partner Violence Answer Date R ecorded Are you denied basic needs s uch as food, clothing, or medical care? No 07/03/2024 In the past 12 months have y ou been in a relationship with a person who hurts, threatens, or tries to control you? No 07/03/2024 Are you denied basic needs s uch as food, clothing, or medical care? No 07/03/2024 In the past 12 months have y ou been in a relationship with a person who hurts, threatens, or tries to control you? No 07/03/2024 Comments No Sex and Gender Information Value [...] Pulmonary, Allergy and Critical Care Medicine [address] [place] [address] Sampson Villa MD [address] [place] [address] 11/03/2025 1:40 PM EST Office Visit [facility] [address] [place] [address] 3rd Floor, [address] [place] [address] Enrike Beltrán MD [address] [place] [address], [address] [address] documented as of this encounter Visit Diagnoses Not on filedocumented in this encounter Care Teams Toggler Relationship Specialty Start Date End Date Jailene Jackson DO [address] [place] [address] PCP - General Family Medicine 07/13/23 Ravi Barker MD Endocrinology 12/06/17 Cecilia Epperson MD [address] [place] [address] [address] [place] [address] General Surgery 12/06/17 Tere Hernandez, DANNY [address] [place] [email or web address] Physician Director Card Hematology 07/13/20 documented as of this encounter Additional Source Comments The information contained in this document represents components of the legal health record. It is not the complete legal health record.[facility]
--- OUTSIDE RECORDS SUMMARY | 2025-07-12 05:32 | XMS_ITS | Encounter Summary ---
Author Organization [facility], Address [address] [place] [address] Phone Care Team Providers Care Computer Forensic Examiner Name Role Phone Jailene Jackson DO Primary Care Provider Encounter Details Date Type Department Care Team (Late st Contact Info) Description 08/31/2023 Documentation Only [facility] [address] [place] [address] Marvin Lew MD [address] [place] [address] [place] [address] Social History Tobacco Use Types [...] Visit [facility] [address] [place] [address] Marvin Lew MD [address] [place] [address] [place] [address] documented as of this encounter Visit Diagnoses Not on filedocumented in this encounter Care Teams Computer Forensic Examiner Relationship Specialty Start Date End Date Jailene Jackson DO [address] [place] [phone] PCP - General Family Medicine 02/29/24 documented as of this encounter
--- OUTSIDE RECORDS SUMMARY | 2025-07-12 05:32 | XMS_ITS | Encounter Summary ---
Author Organization [facility], Address [address] [place] [address] Phone Care Team Providers Care Ambulance Driver Paramedic Name Role Phone Jailene Jackson DO Primary Care Provider [phone] Encounter Details Date Type Department Care Team (Late st Contact Info) Description 11/11/2022 Documentation Only [facility] Amanda [address] [place] [address] Tyrone Barragan MD [address] [place] [address] Social History Tobacco Use Types Packs/Day Years [...] Visit [facility] Amanda [address] [place] [address] Marvin Lew MD [address] [place] [address] [place] [phone] documented as of this encounter Visit Diagnoses Not on filedocumented in this encounter Care Teams Ambulance Driver Paramedic Relationship Specialty Start Date End Date Jailene Jackson DO [address] [place] [phone] PCP - General Family Medicine 02/29/24 documented as of this encounter
--- OUTSIDE RECORDS SUMMARY | 2025-07-12 05:32 | XMS_ITS | Encounter Summary ---
Author Organization [facility] Address [address] [facility] [address] [place] [address] Phone Care Team Providers Care Rv Servicer Name Role Phone Ravi Barker MD Unavailable [phone] Cecilia Epperson MD Unavailable Tyrone Barragan MD Primary Care Provider [phone] Tere Hernandez PA-C Unavailable [phone] Jailene Jackson DO Primary Care Provider Encounter Details Date Type Department Care Team (Late st Contact Info) Description 03/26/2021 Transcribe Orders Virtual Department [address] [place] [address] Rafiq Jeronimo MD [address] [place] [address] [email or web address] Social History Tobacco Use Types Packs/Day Years [...] Pulmonary, Allergy and Critical Care Medicine 10 [facility] [address] Sampson Villa MD 30 [place] [address] 11/03/2025 1:40 PM EST Office Visit [facility] [address] [place] [address] 3rd Floor, [address] [place] [address] Enrike Beltrán MD 22 [facility], [address] [place] [address] [email or web address] documented as of this encounter Visit Diagnoses Not on filedocumented in this encounter Additional Health Concerns Infection Onset Date Last Indicated Resolved Time CoV-Risk Comment:Neg covid 09/12/2023 09/12/2023 09/13/2023 6:[address] CoV-Risk 01/05/2024 01/05/2024 01/16/2024 1:21 AM EDT documented as of this encounter Care Teams Rv Servicer Relationship Specialty Start Date End Date Tyrone Barragan MD [address] [place] [address] [email or web address] PCP - General Family Medicine 02/24/20 07/12/23 Jailene Jackson DO [address] [place] [address] PCP - General Family Medicine 07/13/23 Ravi Barker MD Endocrinology 12/06/17 Cecilia Epperson MD [address] [place] [address] [place] [address] General Surgery 12/06/17 Tere Hernandez PA-C [address] [place] [address] [email or web address] Physician Medical Laboratory Technologist Hematology 07/13/20 documented as of this encounter Additional Source Comments The information contained in this document represents components of the legal health record. It is not the complete legal health record.[facility]
--- OUTSIDE RECORDS SUMMARY | 2025-07-12 05:32 | XMS_ITS | Encounter Summary ---
Author Organization [facility], Address [address] [place] [address] Phone Care Team Providers Care Member Services Representative Name Role Phone Jailene Jackson DO Primary Care Provider Encounter Details Date Type Department Care Team (Late st Contact Info) Description 08/30/2023 Documentation Only [facility] Amanda [address] [place] [address] Marvin Lew MD [address] [place] [address] [place] [address] Social History Tobacco Use Types [...] Visit [facility] Amanda [address] [place] [address] Marvin Lew MD [address] [place] [address] [place] [address] documented as of this encounter Visit Diagnoses Not on filedocumented in this encounter Care Teams Member Services Representative Relationship Specialty Start Date End Date Jailene Jackson DO [address] [place] [phone] PCP - General Family Medicine 02/29/24 documented as of this encounter
--- OUTSIDE RECORDS SUMMARY | 2025-07-12 05:32 | XMS_ITS | Encounter Summary ---
Author Organization [facility], Address [address] [place] [address] Phone Care Team Providers Care Fruit Ii Farmworker Name Role Phone Jailene Jackson DO Primary Care Provider [phone] Encounter Details Date Type Department Care Team (Late st Contact Info) Description 04/04/2025 Documentation Only [facility], [address] [place] [address] Bel Mccarty [address] [place] [address] Social History Tobacco Use Types Packs/Day [...] Visit [facility] FLOREZ [address] [place] [address] Marvin Lew MD [address] [place] [address] [place] [address] documented as of this encounter Visit Diagnoses Not on filedocumented in this encounter Care Teams Fruit Ii Farmworker Relationship Specialty Start Date End Date Jailene Jackson DO [address] [place] [phone] PCP - General Family Medicine 02/29/24 documented as of this encounter
--- OUTSIDE RECORDS SUMMARY | 2025-07-12 05:32 | XMS_ITS | Patient Health Record ---
Author Organization [facility] Address [address] [facility] [place] [address] Care Team Providers Care Chromosomal Disorders Counselor Name Role Phone Jailene Jackson Primary Care Provider Sherita Wilson Unavailable [phone] Allergies Allergen (clinical drug ingredient) Drug/Non Drug Allergy documented on EMR Reaction Allergy Type Onset Date Status aspirin Aspirin taking celebrex Drug Allergy A ctive erythromycin Erythromycin gut Drug Allergy A ctive Substance with sulfonamide structure and antibacterial mechanism of action (substance) Sulfa Antibiotics rash Drug Allergy Active Reason For Referral No Information Medications Medication SIG (Take, Route, Frequency, Duration) Notes Start Date End Date Status Famotidine 40 MG 1 tablet at bedtime Orally Once a day; Duration: 30 day(s) Active Esomeprazole Magnesium 40 MG 1 capsule Orally Once a day; Duration: 30 day(s) Active Celecoxib 200 MG 1 capsule with food Orally Once a day; Duration: 30 day(s) Active amLODIPine Besylate 5 MG 1 tablet Orally Once a day; Duration: 30 day(s) Active Levothyroxine Sodium 100 MCG 1 tablet in the morning on an empty stomach Orally Once a day; Duration: 30 day(s) Active lamoTRIgine 200 MG 1 tablet Orally Once a day; Duration: 30 day(s) Active Doxycycline Hyclate 100 MG 1 capsule Ora lly Once a day; Duration: 10 day(s) 07/21/2022 Not-Taking Xalatan 0.005 % 1 drop into affected eye in the evening Ophthalmic Once a day Active Fluoxetine Active Immunizations Vaccine Route Administration Date Status Comme nts Influenza Unknown 05/12/2022 Administered COVID-19 Pfizer BioNTech Vaccine Unknown 08/11/2022 Administered 2020,2020 2020,2021 unsure dates Social History Tobacco Use: Social History Observation Description Date Details (start date - stop date) Never Smoker NA - NA Tobacco Use/Smoking Question Answer Notes Are you a: nonsmoker Additional Findings: Tobacco Non-User Current no n-smoker Alcohol Screen Question Answer Notes Did you have a drink contain ing alcohol in the past year? Yes How often did you have a dri nk containing alcohol in the past year? Monthly or less (1 point) Points 1 Interpretation Negative Tobacco use other than smoking: Question Answer Notes Are you an other tobacco user? No Plan Of Treatment Next Appt Details Provider Name:Sherita wick, 08/15/2025 01:30:00 PM, [address] [place] [address], [phone], Insurance Providers Payer Name Payer Address Payer Phone Subscriber Number Group Number Insured Name Patient Relationship to Insured Coverage Start Date Coverage End Date Medicare National [employer]t [employer] [address] [facility] [place] [address] [id number] Briseida Adair Self - patient is the insured Med [facility] [address] [place] [address] [phone] [id number] Briseida Adair Self - patient is the insured Medical (General) History Medical History History ICD Code Anemia Anxiety Arthritis asthma Back,Hip,and Knee pain Broken bones CAD (Cholesterol) Cataracts Depression type II diabetes Diverticulosis Fibromyalgia Glaucoma Headaches Hiatal hernia High blood pressure Numbness Psychiatric disorder Reflux ( GERD) Sciatica chronic sinusitis thyroid Measles Mumps Chicken pox Joint implants/screws Transfusions Surgical History Surgery Date(Month/Year) lap band 2012 lap band removal 207 gastric sleeve 2017 right shoulder 2019 left shoulder 2019
--- OUTSIDE RECORDS SUMMARY | 2025-07-12 05:32 | XMS_ITS | Encounter Summary ---
Author Organization [facility] Address [address] [facility] [address] [place] [address] Phone Care Team Providers Care Senior Tableau Developer Name Role Phone Ravi Barker MD Unavailable Cecilia Epperson MD Unavailable Tere Hernandez PA-C Unavailable [phone] Jailene Jackson DO Primary Care Provider Encounter Details Date Type Department Care Team (Late st Contact Info) Description 01/22/2025 Procedure Pass [facility], Ct Scan - [address] [address] Social History Tobacco Use Types Packs/Day Years [...] your housing situation today? I have hi sing 01/22/2025 How many times have you move [...] Date of Assessment Author No Risk Indicated 01/22/2025 8:14 PM EDT Rhona Cornell RN * [place] Suicide Severity Rating Scale (Screener/Recent Self-Report) Question Answer Date of Assessment Author 1. Wish to be (Past 1 Month) No 01/22/2025 8:14 PM EDT Rhona Cornell RN 2. Non-Specific Active Suicidal Thoughts (Past 1 Month) No 01/22/2025 8:14 PM EDT Rhona Cornell RN 6. Suicidal Behavior (Lifetime) No 01/22/2025 8:14 PM EDT Rhona Cornell RN documented as of this encounter Plan of Treatment Upcoming Encounters Date Type Department Care Team (Late st Contact Info) Description 08/22/2025 11:00 AM EST Office Visit [facility] Pulmonary, Allergy and Critical Care Medicine [address] [facility] [place] [address] Sampson Villa MD 30 [place] [address] 11/03/2025 1:40 PM EST Office Visit [facility] [address] [place] [address] 3rd Floor, [address] [place] [address] Enrike Beltrán MD [address] [place] [address] [email or web address] documented as of this encounter Visit Diagnoses Not on filedocumented in this encounter Care Teams Senior Tableau Developer Relationship Specialty Start Date End Date Jailene Jackson DO [address] [place] [address] PCP - General Family Medicine 07/13/23 Ravi Barker MD Endocrinology 12/06/17 Cecilia Epperson MD [address] [place] [address] [place] [address] General Surgery 12/06/17 Tere Hernandez PA-C 30 [place] [address] [email or web address] Physician Youth Agent Hematology 07/13/20 documented as of this encounter Additional Source Comments The information contained in this document represents components of the legal health record. It is not the complete legal health record.[facility]
--- OUTSIDE RECORDS SUMMARY | 2025-07-12 05:32 | XMS_ITS | Encounter Summary ---
Author Organization [facility] Address [address] [facility] [address] [place] [address] Phone Care Team Providers Care Bowling Ball Grader And Marker Name Role Phone Ravi Barker MD Unavailable [phone] Cecilia Epperson MD Unavailable Tyrone Barragan MD Primary Care Provider [phone] Tere Hernandez PA-C Unavailable [phone] Jailene Jackson DO Primary Care Provider Encounter Details Date Type Department Care Team (Latest Contact Info) Description 03/20/2021 Transcribe Orders Virtual Department 30 [place] [address] Rafiq Jeronimo MD [address] [place] [address] [email or web address] Pre-procedure lab exam (Primary Dx) Social History Tobacco Use Types [...] Pulmonary, Allergy and Critical Care Medicine 10 [facility] [place] [address] Sampson Villa MD 30 [place] [address] 11/03/2025 1:40 PM EST Office Visit [facility] [address] [facility] 3rd Floor, [address] [place] [address] Enrike Beltrán MD [address] [address] [email or web address] documented as of this encounter Visit Diagnoses Diagnosis Pre-procedure lab exam- Primary Pre-procedural laboratory examination documented in this encounter Additional Health Concerns Infection Onset Date Last Indicated Resolved Time CoV-Risk Comment:Neg covid 09/12/2023 09/12/2023 09/13/2023 6:[address] CoV-Risk 01/05/2024 01/05/2024 01/16/2024 1:21 AM EDT documented as of this encounter Care Teams Bowling Ball Grader And Marker Relationship Specialty Start Date End Date Tyrone Barragan MD 70 [place] [address] [email or web address] PCP - General Family Medicine 02/24/20 07/12/23 Jailene Jackson DO 70 [place] [address] PCP - General Family Medicine 07/13/23 Ravi Barker MD Endocrinology 12/06/17 Cecilia Epperson MD [address] [place] [address] [place] [address] General Surgery 12/06/17 Tere Hernandez PA-C [address] [place] [address] [email or web address] Physician Pickling Solution Maker Hematology 07/13/20 documented as of this encounter Additional Source Comments The information contained in this document represents components of the legal health record. It is not the complete legal health record.[facility]
--- OUTSIDE RECORDS SUMMARY | 2025-07-12 05:32 | XMS_ITS | Encounter Summary ---
Author Organization [facility] Address [address] [facility] [address] [place] [address] Phone Care Team Providers Care Handle And Vent Machine Operator Name Role Phone Ravi Barker MD Unavailable [phone] Cecilia Epperson MD Unavailable [phone] Tyrone Barragan MD Primary Care Provider [phone] Tere Hernandez PA-C Unavailable [phone] Jailene Jackson DO Primary Care Provider [phone] Encounter Details Date Type Department Care Team (Late Contact Info) Description 03/23/2021 Procedure Pass [facility] Endoscopy Admitting Dept Virtual Department [address] [place] [address] Social History Tobacco Use Types Packs/Day Years [...] Upcoming Encounters Date Type Department Care Team ([facility] Contact Info) Description 08/22/2025 11:00 AM EST Office Visit [facility] Pulmonary, Allergy and Critical Care Medicine [address] [place] [address] Sampson Villa MD 30 [place] [address] 11/03/2025 1:40 PM EST Office Visit [facility] [address] [place] [address] 3rd Floor, [address] [place] [address] Enrike Beltrán MD [address] [place] [address], [address] [address] [email or web address] documented as of this encounter Visit Diagnoses Not on filedocumented in this encounter Additional Health Concerns Infection Onset Date Last Indicated Resolved Time CoV-Risk Comment:Neg covid 09/12/2023 09/12/2023 09/13/2023 6:[address] CoV-Risk 01/05/2024 01/05/2024 01/16/2024 1:21 AM EDT documented as of this encounter Care Teams Handle And Vent Machine Operator Relationship Specialty Start Date End Date Tyrone Barragan MD [address] [place] [phone] [email or web address] PCP - General Family Medicine 02/24/20 07/12/23 Jailene Jackson DO 70 [place] [address] PCP - General Family Medicine 07/13/23 Ravi Barker MD Endocrinology 12/06/17 Cecilia Epperson MD [address] [place] [address] [place] [address] General Surgery 12/06/17 Tere Hernandez PA-C 30 [place] [address] [email or web address] Physician Psychiatric Clinician Hematology 07/13/20 documented as of this encounter Additional Source Comments The information contained in this document represents components of the legal health record. It is not the complete legal health record.[facility]
--- OUTSIDE RECORDS SUMMARY | 2025-07-12 05:32 | XMS_ITS | Encounter Summary ---
Author Organization [facility] Address [address] [facility] [address] [place] [address] Phone Care Team Providers Care Correctional Case Manager Name Role Phone Ravi Barker MD Unavailable [phone] Cecilia Epperson MD Unavailable Tere Hernandez PA-C Unavailable Jailene Jackson DO Primary Care Provider [phone] Encounter Details Date Type Department Care Team (Late st Contact Info) Description 03/18/2024 Procedure Pass [facility], Ct Scan - [address] [address] Social History Tobacco Use Types Packs/Day Years [...] with a working camera? Not on file Comments No Sex and Gender Information Value [...] Pulmonary, Allergy and Critical Care Medicine [address] [place] [address] Sampson Villa MD 30 [place] [address] 11/03/2025 1:40 PM EST Office Visit [facility] [address] [place] [address] 3rd Floor, [address] [place] [address] Enrike Beltrán MD [address] [place] [address] documented as of this encounter Visit Diagnoses Not on filedocumented in this encounter Care Teams Correctional Case Manager Relationship Specialty Start Date End Date Jailene Jackson DO 70 [place] [address] PCP - General Family Medicine 07/13/23 Ravi Barker MD Endocrinology 12/06/17 Cecilia Epperson MD [address] [place] [address] Dr [place] [address] [place] [address] General Surgery 12/06/17 Tere Hernandez PA-C 30 [place] [address] Physician Lighting Specialist Hematology 07/13/20 documented as of this encounter Additional Source Comments The information contained in this document represents components of the legal health record. It is not the complete legal health record.[facility]
--- OUTSIDE RECORDS SUMMARY | 2025-07-12 05:33 | XMS_ITS | Encounter Summary ---
Author Organization [facility] Address [address] [place] [address] Phone Care Team Providers Care Masonry Teacher Name Role Phone Wisam Lopez MD Primary Care Provider Ravi Barker MD Unavailable [phone] Cecilia Epperson MD Unavailable [phone] Tyrone Barragan MD Primary Care Provider [phone] Tere Hernandez PA-C Unavailable [phone] Jailene Jackson DO Primary Care Provider [phone] Reason for Referral * MRI/CAT Scan - Closed Specialty Diagnoses / Procedures Referred By Rome henry Referred To Contact Radiology Diagnoses Cervical stenosis of spine Procedures MRI Cervical Spine Manny Epps MD [address] [place] [address] Dr [facility] [place] [address] Phone: tel: fax: Referral ID Status Reason Start Date Expiration Date Visits Re quested Visits Authorized [id number] Closed 09/19/2018 09/19/2019 1 1 Encounter Details Date Type Department Care Team (Late st Contact Info) Description 09/19/2018 Ancillary Orders Virtual Department [address] [place] [id number] Manny Epps MD [address] [place] [address] Dr [facility] [place] [address] Cervical stenosis of spine Social History Tobacco Use Types Packs/Day Years [...] Description 08/22/2025 11:00 AM EST Office Visit [facility] Pulmonary, Allergy and Critical Care Medicine 10 [place] [address] Sampson Villa MD 30 [place] [address] 11/03/2025 1:40 PM EST Office Visit [facility] [address] [place] [address] 3rd Floor, [address] [place] [address] Enrike Beltrán MD [address] [place] [address], [address] [address] [email or web address] documented as of this encounter Results * MRI CERVICAL SPINE (NEURO) FOCUS WITHOUT CONTRAST (10/02/2018 3:50 PM EST) Anatomical Region Laterality Modality C-spine Magnetic Resonan ce 10/02/2018 4:59 PM EST Impressions 10/02/2018 5:32 PM EST 1. Degenerative cervical spondylosis with moderate canal stenosis at C3-C4, C4-C5 and C5-C6 where there is mild flattening of the cervical spinal cord, without cord edema. 2. See above for detailed evaluation of each individual level. POS [id number] Edited by: Tatiana Huntley on 10/02/2018 5:24 PM Narrative 10/02/2018 5:32 PM EST EXAM: MRI CERVICAL SPINE (NEURO) FOCUS WITHOUT CONTRAST HISTORY: Cervical stenosis of spine Numbness/tingling left arm radiating to left hand. Weakness in left hand. TECHNIQUE: Exam performed on a 1.5 Zahira high-field MRI unit. Sagittal T1, T2 and STIR, axial T2* gradient echo and 3-D T2 sequences obtained. COMPARISON: None. FINDINGS: Bone marrow signal is normal. There is no fracture, subluxation or marrow edema. Normal alignment of the vertebral bodies and facet joints. The cervical spinal cord is normal in signal. There is no intramedullary mass. The cerebellar tonsils are normal in position. There is moderate degenerative loss of disc height at C4-C5, C5-C6, C6-C7, mild loss of disc height at C7-T1. Detailed evaluation of the individual levels: C2-C3: No significant canal or neural foraminal stenosis. C3-C4: Mild bilateral uncovertebral spurring, small to moderate central disc protrusion and facet degenerative osteophytes. There is moderate canal stenosis, indentation upon the anterior thecal sac and anterior aspect of the cervical spinal cord. There is flattening of the cord without cord edema. No significant neural foraminal stenosis. C4-C5: Bilateral uncovertebral spurring, small to moderate central disc protrusion and facet degenerative osteophytes. Together there is moderate canal stenosis, indentation upon the anterior thecal sac and anterior aspect of the cervical spinal cord. There is flattening of the cord without cord edema. No significant neural foraminal stenosis. C5-C6: Posterior disc ridgelike spurring, bilateral uncovertebral spurring left greater than right, and bilateral facet degenerative spurring. There is impression upon the anterior thecal sac, moderate canal stenosis. Minimal flattening of the cord without cord signal edema. Moderate left and mild right neural foraminal stenosis. C6-C7: Posterior disc ridgelike spurring, bilateral uncovertebral spurring and bilateral facet degenerative spurring. Mild indentation upon the anterior thecal sac, without contacting or flattening the cord. Moderate bilateral neural foraminal stenosis. C7-T1: Posterior disc ridgelike spurring and uncovertebral spurring. Mild facet hypertrophic spurring. Minimal impression upon the anterior thecal sac, without significant canal stenosis. No significant neural foraminal stenosis. T1-T2: No significant findings. T2-T3: Posterior disc ridgelike spurring with mild indentation upon the anterior thecal sac. Mild canal stenosis. No significant neural foraminal stenosis. Procedure Note Caitlin Farley MD - 10/02/2018 EXAM: MRI CERVICAL SPINE (NEURO) FOCUS WITHOUT CONTRAST HISTORY: Cervical stenosis of spine Numbness/tingling left arm radiating to left hand. Weakness in lefthand. TECHNIQUE: Exam performed on a 1.5 Zahira high-field MRI unit. SagittalT1, T2 and STIR, axial T2* gradient echo and 3-D T2 sequences obtained. COMPARISON: None. FINDINGS: Bone marrow signal is normal. There is no fracture, subluxation or marrowedema. Normal alignment of the vertebral bodies and facet joints. The cervical spinal cord is normal in signal. There is no intramedullarymass. The cerebellar tonsils are normal in position. There is moderate degenerative loss of disc height at C4-C5, C5-C6, C6-C7,mild loss of disc height at C7-T1. Detailed evaluation of the individual levels: C2-C3: No significant canal or neural foraminal stenosis. C3-C4: Mild bilateral uncovertebral spurring, small to moderate centraldisc protrusion and facet degenerative osteophytes. There is moderatecanal stenosis, indentation upon the anterior thecal sac and anterioraspect of the cervical spinal cord. There is flattening of the cordwithout cord edema. No significant neural foraminal stenosis. C4-C5: Bilateral uncovertebral spurring, small to moderate central discprotrusion and facet degenerative osteophytes. Together there is moderatecanal stenosis, indentation upon the anterior thecal sac and anterioraspect of the cervical spinal cord. There is flattening of the cordwithout cord edema. No significant neural foraminal stenosis. C5-C6: Posterior disc ridgelike spurring, bilateral uncovertebral spurringleft greater than right, and bilateral facet degenerative spurring. Thereis impression upon the anterior thecal sac, moderate canal stenosis.Minimal flattening of the cord without cord signal edema. Moderate leftand mild right neural foraminal stenosis. C6-C7: Posterior disc ridgelike spurring, bilateral uncovertebral spurringand bilateral facet degenerative spurring. Mild indentation upon theanterior thecal sac, without contacting or flattening the cord. Moderatebilateral neural foraminal stenosis. C7-T1: Posterior disc ridgelike spurring and uncovertebral spurring. Mildfacet hypertrophic spurring. Minimal impression upon the anterior thecalsac, without significant canal stenosis. No significant neural foraminalstenosis. T1-T2: No significant findings. T2-T3: Posterior disc ridgelike spurring with mild indentation upon theanterior thecal sac. Mild canal stenosis. No significant neural foraminalstenosis. IMPRESSION: 1. Degenerative cervical spondylosis with moderate canal stenosis atC3-C4, C4-C5 and C5-C6 where there is mild flattening of the cervicalspinal cord, without cord edema. 2. See above for detailed evaluation of each individual level. POS [id number] Edited by: Tatiaan Huntley on 10/02/2018 5:24 PM Manny Epps MD IMG MR XSPECIALTY Final Result documented in this encounter Visit Diagnoses Diagnosis Cervical stenosis of spine Spinal stenosis in cervical region Cervical stenosis of spine Spinal stenosis in cervical region documented in this encounter Additional Health Concerns Infection Onset Date Last Indicated Resolved Time CoV-Risk 09/07/2020 09/07/2020 09/21/2020 1:24 AM EST CoV-Risk Comment:Neg covid 09/12/2023 09/12/2023 09/13/2023 6:[address] CoV-Risk 01/05/2024 01/05/2024 01/16/2024 1:21 AM EDT documented as of this encounter Care Teams Masonry Teacher Relationship Specialty Start Date End Date Wisam Lopez MD [email or web address] PCP - General Family Medicine 08/19/17 02/23/20 Tyrone Barragan MD [address] [place] [phone] [email or web address] PCP - General Family Medicine 02/24/20 07/12/23 Jailene Jackson DO 70 [place] [address] PCP - General Family Medicine 07/13/23 Ravi Barker MD Endocrinology 12/06/17 Cecilia Epperson MD [address] [place] [address] [place] [address] General Surgery 12/06/17 Tere Hernandez PA-C [address] [place] [address] [email or web address] Physician Tire Worker Hematology 07/13/20 documented as of this encounter Additional Source Comments The information contained in this document represents components of the legal health record. It is not the complete legal health record.[facility]
--- OUTSIDE RECORDS SUMMARY | 2025-07-12 05:33 | XMS_ITS | Encounter Summary ---
Author Organization [facility] Address [address] [place] [address] Phone Care Team Providers Care Automobile Upholstery Trim Installer Name Role Phone Wisam Lopez MD Primary Care Provider [phone] Ravi Barker MD Unavailable [phone] Cecilia Epperson MD Unavailable Tyrone Barragan MD Primary Care Provider [phone] Tere Hernandez PA-C Unavailable [phone] Jailene Jackson DO Primary Care Provider [phone] Encounter Details Date Type Department Care Team (Late st Contact Info) Description 10/04/2018 Ancillary Orders Virtual Department 30 [place] [address] Manny Epps MD [address] [place] [address] Dr BRITT_Neurological [place] [address] Cervical stenosis of spine Social History Tobacco [...] Pulmonary, Allergy and Critical Care Medicine [address] [facility] [place] [address] Sampson Villa MD 30 [place] [address] [email or web address] 11/03/2025 1:40 PM EST Office Visit [facility] [address] 3rd Floor, [address] [place] [address] Enrike Beltrán MD [address] [address] [email or web address] documented as of this encounter Visit Diagnoses Diagnosis Cervical stenosis of spine Spinal stenosis in cervical region documented in this encounter Additional Health Concerns Infection Onset Date Last Indicated Resolved Time CoV-Risk 09/07/2020 09/07/2020 09/21/2020 1:24 AM EST CoV-Risk Comment:Neg covid 09/12/2023 09/12/2023 09/13/2023 6:[address] CoV-Risk 01/05/2024 01/05/2024 01/16/2024 1:21 AM EDT documented as of this encounter Care Teams Automobile Upholstery Trim Installer Relationship Specialty Start Date End Date Wisam Lopez MD [email or web address] PCP - General Family Medicine 08/19/17 02/23/20 Tyrone Barragan MD 70 [place] [phone] [email or web address] PCP - General Family Medicine 02/24/20 07/12/23 Jailene Jackson DO 70 [place] [address] PCP - General Family Medicine 07/13/23 Ravi Barker MD Endocrinology 12/06/17 Cecilia Epperson MD [address] [place] [address] [place] [address] General Surgery 12/06/17 Tere Hernandez PA-C [address] [place] [phone] [email or web address] Physician Manufacturing Engineering Technician Hematology 07/13/20 documented as of this encounter Additional Source Comments The information contained in this document represents components of the legal health record. It is not the complete legal health record.[facility]
--- OUTSIDE RECORDS SUMMARY | 2025-07-12 05:33 | XMS_ITS | Clinical Summary ---
Author Organization [address] [place] [address] [place] [phone] Phone Care Team Providers Care Cable Television Installer Name Role Phone Jailene Jackson DO Primary Care Provider [phone] Allergies Active Allergy Reactions Criticality Noted Date Comments Aspirin 11/18/2022 Other reaction(s): taking celebrex Azithromycin Other 12/09/2020 Unknown to pt Erythromycin Other 08/19/2017 Other Reaction(s): GI upset Other reaction(s): GI upset, gut Other reaction(s): GI upset Sulfa (Sulfonamide Antibiotics) Rash Low 08/19/2017 Other reaction(s): rash Other reaction(s): rash Medications acetaminophen (TYLENOL) 325 mg tablet Take 2 tablets (650 mg total) by mouth every 6 hours as needed. 05/18/20 20 Active albuterol HFA (PROAIR HFA ; PROVENTIL HFA ; VENTOLIN HFA) 90 mcg/actuation inhaler Inhale 2 puffs by mouth Every 4 hours as needed. Active amLODIPine (NORVASC) 10 mg tablet Take 1 tablet (10 mg total) by mouth 1 (one) time each day. Active atorvastatin (LIPITOR) 40 mg tablet Take 1 tablet (40 mg total) by mouth 1 (one) time each day in the morning. Active azithromycin (ZITHROMAX) 250 mg tablet One tablet every Monday , Monday and Monday01/16/20 25 Active biotin 1 mg tablet Take 1 tablet (1,000 mcg total) by mouth daily. Active bisacodyL (DULCOLAX) 10 mg suppository Insert 1 suppository (10 mg total) into the rectum. 05/18/20 20 Active blood sugar diagnostic (FreeStyle Lite Strips) test strip USE TO TEST BLOOD SUGAR ONCE DAILY 05/28/20 24 Active FreeStyle [place] Lite monitoring kit by extracorporeal route 2 (two) times a day. 05/28/20 24 Active budesonide (Pulmicort Flexhaler) 180 mcg/actuation inhaler 04/19/20 24 Active celecoxib (CeleBREX) 200 mg capsule 05/23/20 16 Active cycloSPORINE (RESTASIS) 0.05 % ophthalmic emulsion Administer 1 drop into affected eye(s). 04/08/20 22 Active docusate sodium (COLACE) 100 mg tablet Take 1 tablet (100 mg total) by mouth. 09/21/19 24 Active DULoxetine (CYMBALTA) [address] capsule Take 1 capsule (60 mg total) by mouth 1 (one) time each day. 01/25/20 25 Active ergocalciferol (VITAMIN D-2) 1,250 mcg (50,000 unit) capsule Take 1 capsule (50,000 Units total) by mouth every 7 (seven) days. 09/02/20 Active famotidine (PEPCID) 40 mg tablet Take 1 tablet (40 mg total) by mouth daily. 04/29/20 21 Active fluticasone propionate (FLONASE) 50 mcg/actuation nasal spray spray 2 sprays by nasal route daily Active furosemide (LASIX) 40 mg tablet Take 1 tablet (40 mg total) by mouth daily. 12/01/19 24 Active lamoTRIgine (LaMICtal) 100 mg tablet Take 2 tablets (200 mg total) by mouth daily. 06/15/20 23 Active FreeStyle Lancets 28 gauge lancets USE TO TEST BLOOD SUGAR ONCE DAILY 05/28/20 24 Active latanoprost (XALATAN) 0.005 % ophthalmic solution Administer 1 drop into affected eye(s) daily. 03/20/20 17 Active levothyroxine (SYNTHROID, LEVOTHROID) 112 mcg tablet Take 1 tablet (112 mcg total) by mouth daily. 08/29/20 23 Active LORazepam (ATIVAN) 0.5 mg tablet TAKE 1/4 OF A TABLET BY MOUTH EVERY DAY NEEDED FOR 60 DAYS. Active ondansetron (ZOFRAN) 4 mg tablet 1 TABLET BY MOUTH 3X DAILY NEEDED FOR NAUSEA 03/05/20 Active polyethylene glycol 3350 (MIRALAX ORAL) Take 17 g by mouth. 09/09/20 23 Active senna (SENOKOT) 8.6 mg tablet Take 1 tablet (8.6 mg total) by mouth. 09/09/20 23 Active traMADoL (ULTRAM) 50 mg tablet if needed 11/18/19 23 Active traZODone (DESYREL) 100 mg tablet Take 2 tablets (200 mg total) by mouth daily. 09/14/19 20 Active Anoro Ellipta 62.5-25 mcg/actuation inhaler Inhale 1 puff by mouth daily. 07/01/20 24 026 Active Active Problems Problem Noted Date Diagnosed Date Intertrigo 02/12/2025 Abdominal pannus 02/12/2025 Social History Tobacco Use Types Packs/Day Years Used Date Smoking Tobacco: Never Smokeless Tobacco: Never Tobacco Cessation:Counseling Given: Not Answered Alcohol Use Standard Drinks/Week Comments Not Currently 0 (1 standard drink = 0.6 oz pur e alcohol) Comments Unknown Sex and Gender Information Value Date Recorded Sex Assigned at Not on file Legal Sex Female 11:27 AM EDT Gender Identity Not on file Sexual Orientation Not on file Obstetrics History Last Filed Vital Signs Vital Sign Reading Time Taken Comments Blood Pressure 120/77 02/10/2025 2:12 PM EDT Pulse 108 02/10/2025 2:12 PM EDT Temperature - - Respiratory Rate - - Oxygen Saturation - - Inhaled Oxygen Concentration - - Weight 57.2 kg (126 lb 3.2 oz) 02/10/2025 2:12 P M EDT Height 153.7 cm (5' 0.5 ) 02/10/2025 2:12 PM EDT Body Mass Index 24.24 02/10/2025 2:12 PM EDT Plan of Treatment Health Maintenance Due Date Last Done Comments Breast Cancer Screening 1950 Colorectal Cancer Screening: Colonoscopy 1950 Diabetes: Annual Foot Exam 1961 Diabetes: Annual Retina Eye Exam 1961 Depression Screening 09/11/2024 Diabetes: Annual GFR (Glomerular Filtration Rate) 09/27/2024 09/27/2023, 11/27/2021, 04/05/2021, Additional history exists Cholesterol Screening (Lipid Panel) 01/27/2025 Falls Risk Assessment 01/27/2025 Medicare Annual Wellness Visit 01/27/2025 Osteoporosis Screening (Bone Density Screening) 01/27/2025 Social Influencers of Health Screening 01/27/2025 Diabetes: Annual Urine Albumin-Creatinine Ratio (uACR) 02/11/2025 08/29/2023, 11/27/2021, 05/21/2021 Diabetes: Blood Sugar Control Test (HGBA1C) 02/11/2025 Hypertension/CHF/CAD Annual BMP Blood Test 02/11/2025 09/27/2023, 11/27/2021, 04/05/2021, Additional history exists COVID-19 Vaccine (8 - Moderna risk season) 2025 08/22/2024, 07/28/2023, 08/11/2022, Additional history exists Influenza Vaccine (#1) 2025 , 08/08/2023, 07/15/2023, Additional history exists DTaP,Tdap,and Td Vaccines (4 - Td or Tdap) 04/02/2029 04/02/2019, 01/12/2019, 11/25/2008 Pneumococcal Vaccine: 50+ Years Completed 06/10/2020, 01/12/2018, 03/17/2015, Additional history exists Hepatitis C Screening Completed 09/07/2020 Zoster Vaccines Completed 01/27/2021, 06/10/2020 RSV Immunization Adult Patients Completed 09/28/2023 HIB Vaccines Aged Out No longer eligi ble based on patient's age to complete this topic HPV Vaccines Aged Out No longer eligi ble based on patient's age to complete this topic Hepatitis A Vaccines Aged Out No long er eligible based on patient's age to complete this topic Hepatitis B Vaccines Aged Out No long er eligible based on patient's age to complete this topic IPV Vaccines Aged Out No longer eligi ble based on patient's age to complete this topic MMR Vaccines Aged Out No longer eligi ble based on patient's age to complete this topic Meningococcal ACWY Vaccine Aged Out N o longer eligible based on patient's age to complete this topic Meningococcal B Vaccine Aged Out No l onger eligible based on patient's age to complete this topic RSV Immunization Patients Under 20 months Aged Out No longer eligible based on patient's age to complete this topic Varicella Vaccines Aged Out No longer eligible based on patient's age to complete this topic Insurance MEDICAID - [place] MEDICARE [facility] Care Teams Cable Television Installer Relationship Specialty Start Date End Date Jailene Jackson DO Raymundo Vaca [address] [place] [phone] PCP - General Family Medicine 01/27/25
--- OUTSIDE RECORDS SUMMARY | 2025-07-12 05:33 | XMS_ITS | Encounter Summary ---
Author Organization [facility] Address [address] [place] [address] Phone Care Team Providers Care Staffing Director Name Role Phone Jailene Jackson DO Primary Care Provider [phone] Encounter Details Date Type Department Care Team (Late Contact Info) Description 06/26/2020 Orders Only [facility] [address] [facility] 3 [place] [phone] Alexa Peterson MD Chronic kidney disease, stage 3 unspecified Social History Tobacco Use Types Packs/Day Years [...] Visit [facility] [address] Inna FLOREZ [address] [place] [phone] Marvin Lew MD [address] [place] [address] [place] [phone] documented as of this encounter Visit Diagnoses Diagnosis Chronic kidney disease, stage 3 unspecified documented in this encounter Care Teams Staffing Director Relationship Specialty Start Date End Date Jailene Jackson DO [address] [place] [phone] PCP - General Family Medicine 02/29/24 documented as of this encounter
--- OUTSIDE RECORDS SUMMARY | 2025-07-12 05:33 | XMS_ITS | Encounter Summary ---
Author Organization [facility] Address [address] [place] [address] Phone Care Team Providers Care Geoint Analyst Name Role Phone Ravi Barker MD Unavailable Cecilia Epperson MD Unavailable Tere Hernandez PA-C Unavailable Jailene Jackson DO Primary Care Provider Encounter Details Date Type Department Care Team (Late st Contact Info) Description 01/05/2024 Procedure Pass [facility], Ct Scan - [address] [address] Social History Tobacco Use Types Packs/Day Years [...] Date of Assessment Author No Risk Indicated 01/05/2024 1:34 AM EDT Carissa Cadet RN * Harvey Suicide Severity Rating Scale (Screener/Recent Self-Report) Question Answer Date of Assessment Author 1. Wish to be (Past 1 Month) No 01/05/2024 1:34 AM EDT Carissa Fuentes RN 2. Non-Specific Active Suicidal Thoughts (Past 1 Month) No 01/05/2024 1:34 AM EDT Carissa Fuentes RN 6. Suicidal Behavior (Lifetime) No 01/05/2024 1:34 AM EDT Carissa Fuentes RN documented as of this encounter Plan of Treatment Upcoming Encounters Date Type Department Care Team (Late st Contact Info) Description 08/22/2025 11:00 AM EST Office [place] [facility] [place]monary, Allergy and Critical Care Medicine 10 [place] [address] Sampson Villa MD 30 [place] [address] [email or web address] 11/03/2025 1:40 PM EST Office Visit [facility] [address] [place] [address] 3[address] [facility], [address] [address] Enrike Beltrán MD [address] [place] [phone] [email or web address] documented as of this encounter Visit Diagnoses Not on filedocumented in this encounter Additional Health Concerns Infection Onset Date Last Indicated Resolved Time CoV-Risk 01/05/2024 01/05/2024 01/16/2024 1:21 AM EDT documented as of this encounter Care Teams Geoint Analyst Relationship Specialty Start Date End Date Jailene Jackson DO [address] [place] [address] PCP - General Family Medicine 07/13/23 Ravi Barker MD Endocrinology 12/06/17 Cecilia Epperson MD [address] [place] [address] [place] [address] General Surgery 12/06/17 Tere Hernandez PA-C [address] [place] [address] Physician Odd Jobs Day Worker Hematology 07/13/20 documented as of this encounter Additional Source Comments The information contained in this document represents components of the legal health record. It is not the complete legal health record.[facility]
--- OUTSIDE RECORDS SUMMARY | 2025-07-12 05:33 | XMS_ITS | Encounter Summary ---
Author Organization [facility] Address [address] [facility] [address] [place] [address] Phone Care Team Providers Care Covering Machine Tender Name Role Phone Ravi Barker MD Unavailable [phone] Cecilia Epperson MD Unavailable Tyrone Barragan MD Primary Care Provider Tere Hernandez PA-C Unavailable [phone] Jailene Jackson DO Primary Care Provider Encounter Details Date Type Department Care Team (Latest Contact Info) Description 03/02/2021 Transcribe Orders Virtual Department 30 [place] [address] Rafiq Jeronimo MD [address] [place] [address] [email or web address] Rodas (Primary Dx) Social History Tobacco Use Types [...] Description 08/22/2025 11:00 AM EST Office Visit [facility] [place]monary, Allergy and Critical Care Medicine [address] [place] [address] Sampson Villa MD 30 [place] [address] 11/03/2025 1:40 PM EST Office Visit [facility] [address] [place] [address] 3rd Floor, [address] [place] [address] Enrike Beltrán MD [address] [facility], [address] [place] [address] [email or web address] documented as of this encounter Results * FL UGI SERIES SINGLE CONTRAST (03/24/2021 11:05 AM EDT) Anatomical Region Laterality Modality Abdomen Computed Radiogr aphy 03/24/2021 11:4 2 AM EDT Impressions 03/24/2021 12:19 PM EDT 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 Configuration does not suggest malignancy but correlation with the recent endoscopic findings is necessary. Chronically dilated and flaccid thoracic esophagus with intermittent opening of the lower esophageal sphincter and without additional esophageal or gastric duodenal mucosal abnormality identified. FLUOROSCOPY TIME: 2 min. 14 sec; 140 IMAGES/FRAMES POS - [id number] Narrative 03/24/2021 12:19 PM EDT COMPARISON: 12/13/2018 Upper GI Series FINDINGS: A preliminary AP view of the abdomen reveals an unremarkable bowel gas pattern with lower lumbar fusion hardware now present. As the patient claims that she underwent endoscopic evaluation yesterday, a single contrast study was performed. Following ingestion the contrast mixture deglutition was assessed fluoroscopically and recorded on rapid sequence digital images. 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 This does not have a typical appearance for cricopharyngeal achalasia. Caudal to this level with esophagus is chronically dilated and redundant with a flaccid appearance. There is intermittent opening of the lower esophageal sphincter without progressive luminal narrowing seen. There remains a paucity of primary and secondary stripping waves throughout the esophagus. No mucosal ulceration apparent. Stomach and duodenal cap filled moderately well. There are chronic post-surgical changes consistent with gastric sleeve, without duplication of the proximal gastric ulcer suggested on the prior study. No new gastric ulcer or mass identified. Duodenal cap unremarkable as are the remainder of the visualized opacified small bowel loops. Procedure Note Smair Shannon MD - 03/24/2021 COMPARISON: 12/13/2018 Upper GI Series FINDINGS: A preliminary AP view of the abdomen reveals an unremarkable bowel gaspattern with lower lumbar fusion hardware now present. As the patientclaims that she underwent endoscopic evaluation yesterday, a singlecontrast study was performed. Following ingestion the contrast mixture deglutition was assessedfluoroscopically and recorded on rapid sequence digital images. There is ajet effect consistent with short segment stricturing in the hypopharynxwhich seems to display shouldering and involve both the anterior andposterior luminal margins, representing a progression from prior study.This does not have a typical appearance for cricopharyngeal achalasia.Caudal to this level with esophagus is chronically dilated and redundantwith a flaccid appearance. There is intermittent opening of the loweresophageal sphincter without progressive luminal narrowing seen. Thereremains a paucity of primary and secondary stripping waves throughout theesophagus. No mucosal ulceration apparent. Stomach and duodenal cap filled moderately well. There are chronicpost-surgical changes consistent with gastric sleeve, without duplicationof the proximal gastric ulcer suggested on the prior study. No new gastriculcer or mass identified. Duodenal cap unremarkable as are the remainderof the visualized opacified small bowel loops. 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 Configuration does not suggestmalignancy but correlation with the recent endoscopic findings isnecessary. Chronically dilated and flaccid thoracic esophagus withintermittent opening of the lower esophageal sphincter and withoutadditional esophageal or gastric duodenal mucosal abnormalityidentified. FLUOROSCOPY TIME: 2 min. 14 sec; 140 IMAGES/FRAMES POS - [id number] Rafiq Jeronimo MD IMG FL MISC Final Result documented in this encounter Visit Diagnoses Diagnosis Achalasia- Primary Achalasia and cardiospasm Achalasia Achalasia and cardiospasm documented in this encounter Additional Health Concerns Infection Onset Date Last Indicated Resolved Time CoV-Risk Comment:Neg covid 09/12/2023 09/12/2023 09/13/2023 6:[address] CoV-Risk 01/05/2024 01/05/2024 01/16/2024 1:21 AM EDT documented as of this encounter Care Teams Covering Machine Tender Relationship Specialty Start Date End Date Tyrone Barragan MD [address] [place] [address] [email or web address] PCP - General Family Medicine 02/24/20 07/12/23 Jailene Jackson DO [address] [place] [address] PCP - General Family Medicine 07/13/23 Ravi Barker MD Endocrinology 12/06/17 Cecilia Epperson MD [address] [place] [address] [place] [address] General Surgery 12/06/17 Tere Hernandez PA-C [address] [place] [address] Physician Freight Checker Hematology 07/13/20 documented as of this encounter Additional Source Comments The information contained in this document represents components of the legal health record. It is not the complete legal health record.[facility]
--- OUTSIDE RECORDS SUMMARY | 2025-07-12 05:33 | XMS_ITS | Encounter Summary ---
Author Organization [facility] Address [address] [facility] [address] [place] [address] Phone Care Team Providers Care Plant Chief Name Role Phone Ravi Barker MD Unavailable Cecilia Epperson MD Unavailable Tere Hernandez PA-C Unavailable [phone] Jailene Jackson DO Primary Care Provider Encounter Details Date Type Department Care Team (Late st Contact Info) Description 09/12/2023 Procedure Pass [facility] [address] [place] [address] Social History Tobacco Use Types Packs/Day Years [...] Date of Assessment Author No Risk Indicated 09/13/2023 11:38 AM Karyn Pablo RN * [place]ran Suicide Severity Rating Scale (Screener/Recent Self-Report) Question Answer Date of Assessment Author 1. Wish to be (Past 1 Month) No 09/13/2023 11:38 AM Karyn Juarez RN 2. Non-Specific Active Suicidal Thoughts (Past 1 Month) No 09/13/2023 11:38 AM Karyn Juarez RN 6. Suicidal Behavior (Lifetime) No 09/13/2023 11:38 AM Karyn Juarez RN documented as of this encounter Plan of Treatment Upcoming Encounters Date Type Department Care Team (Late st Contact Info) Description 08/22/2025 11:00 AM EST Office Visit [facility] [place]monary, Allergy and Critical Care Medicine 10 [place] [address] Sampson Villa MD [address] [place] [address] [email or web address] 11/03/2025 1:40 PM EST Office Visit [facility] [address] [place] [address] 3rd [facility], [address] [address] Enrike Beltrán MD [address] [place] [address] [email or web address] documented as of this encounter Visit Diagnoses Not on filedocumented in this encounter Additional Health Concerns Infection Onset Date Last Indicated Resolved Time CoV-Risk Comment:Neg covid 09/12/2023 09/12/2023 09/13/2023 6:[address] CoV-Risk 01/05/2024 01/05/2024 01/16/2024 1:21 AM EDT documented as of this encounter Care Teams Plant Chief Relationship Specialty Start Date End Date Jailene Jackson DO 70 [place] [address] PCP - General Family Medicine 07/13/23 Raiv Barker MD Endocrinology 12/06/17 Cecilia Epperson MD [address] [place] [address] [place] [address] General Surgery 12/06/17 Tere Hernandez PA-C [address] [place] [address] [email or web address] Physician Senior Enlisted Advisor Hematology 07/13/20 documented as of this encounter Additional Source Comments The information contained in this document represents components of the legal health record. It is not the complete legal health record.[facility]
--- OUTSIDE RECORDS SUMMARY | 2025-07-12 05:33 | XMS_ITS | Encounter Summary ---
Author Organization [facility] Address [address] [place] [address] Phone Care Team Providers Care Facilities Maintenance Assistant Name Role Phone Jailene Jackson DO Primary Care Provider [phone] Encounter Details Date Type Department Care Team (Late Contact Info) Description 03/10/2020 Orders Only [facility] [address] [facility] 3 [place] [address] Alexa Peterson MD Chronic kidney disease stage 3 (HCC) Social History Tobacco Use Types Packs/Day Years [...] Visit [facility] [place] [address] Inna FLOREZ [address] [place] [phone] Marvin Lew MD [address] [place] [address] [place] [phone] documented as of this encounter Visit Diagnoses Diagnosis Chronic kidney disease stage 3 (HCC) documented in this encounter Care Teams Facilities Maintenance Assistant Relationship Specialty Start Date End Date Jailene Jackson DO [address] [place] [phone] PCP - General Family Medicine 02/29/24 documented as of this encounter
--- OUTSIDE RECORDS SUMMARY | 2025-07-12 05:33 | XMS_ITS | Encounter Summary ---
Author Organization [facility] Address [address] [facility] [address] [place] [address] Phone Care Team Providers Care Certified Nutritionist Name Role Phone Wisam Lopez MD Primary Care Provider [phone] Ravi Barker MD Unavailable [phone] Cecilia Epperson MD Unavailable [phone] Tyrone Barragan MD Primary Care Provider [phone] Tere Hernandez PA-C Unavailable [phone] Jailene Jackson DO Primary Care Provider [phone] Encounter Details Date Type Department Care Team (Late st Contact Info) Description 11/28/2017 Procedure Pass [facility], Ct Scan - [address] [address] Social History Tobacco Use Types Packs/Day Years [...] Pulmonary, Allergy and Critical Care Medicine [address] [facility] [place] [address] Sampson Villa MD 30 [place] [address] 11/03/2025 1:40 PM EST Office Visit [facility] [address] [place] [address] 3rd Floor, [address] [place] [address] Enrike Beltrán MD 22 [facility], [address] [address] [email or web address] documented as of this encounter Visit Diagnoses Not on filedocumented in this encounter Additional Health Concerns Infection Onset Date Last Indicated Resolved Time CoV-Risk 09/07/2020 09/07/2020 09/21/2020 1:24 AM EST CoV-Risk Comment:Neg covid 09/12/2023 09/12/2023 09/13/2023 6:[address] CoV-Risk 01/05/2024 01/05/2024 01/16/2024 1:21 AM EDT documented as of this encounter Care Teams Certified Nutritionist Relationship Specialty Start Date End Date Wisam Lopez MD [email or web address] PCP - General Family Medicine 08/19/17 02/23/20 Tyrone Barragan MD 70 [place] [address] [email or web address] PCP - General Family Medicine 02/24/20 07/12/23 Jailene Jackson DO 70 [place] [address] [email or web address] PCP - General Family Medicine 07/13/23 Ravi Barker MD Endocrinology 12/06/17 Cecilia Epperson MD [address] [place] [address] [place] [address] General Surgery 12/06/17 Tere Hernandez PA-C [address] [place] [address] [email or web address] Physician Bottle Packer Hematology 07/13/20 documented as of this encounter Additional Source Comments The information contained in this document represents components of the legal health record. It is not the complete legal health record.[facility]
--- OUTSIDE RECORDS SUMMARY | 2025-07-12 05:33 | XMS_ITS | Encounter Summary ---
Author Organization [facility] Address [address] [facility] [address] [place] [address] Phone Care Team Providers Care Tab Cutter Name Role Phone Ravi Barker MD Unavailable Cecilia Epperson MD Unavailable [phone] Tyrone Barragan MD Primary Care Provider [phone] Tere Hernandez PA-C Unavailable [phone] Jailene Jackson DO Primary Care Provider [phone] Encounter Details Date Type Department Care Team (Late Contact Info) Description 06/30/2021 Documentation [facility] [address] [place] [phone] Kemar Segura MD [email or web address] Social History Tobacco Use Types Packs/Day Years [...] Encounters Date Type Department Care Team (Late Contact Info) Description 08/22/2025 11:00 AM EST Office Visit [facility] Pulmonary, Allergy and Critical Care Medicine 10 [facility] [place] [address] Sampson Villa MD 30 [place] [address] 11/03/2025 1:40 PM EST Office Visit [facility] [address] [place] [address] 3rd Floor, [address] [place] [address] Enrike Beltrán MD [address] [place] [address], [address] [address] [email or web address] documented as of this encounter Visit Diagnoses Not on filedocumented in this encounter Additional Health Concerns Infection Onset Date Last Indicated Resolved Time CoV-Risk Comment:Neg covid 09/12/2023 09/12/2023 09/13/2023 6:[address] CoV-Risk 01/05/2024 01/05/2024 01/16/2024 1:21 AM EDT documented as of this encounter Care Teams Tab Cutter Relationship Specialty Start Date End Date Tyrone Barragan MD 70 [place] [address] [email or web address] PCP - General Family Medicine 02/24/20 07/12/23 Jailene Jackson DO 70 [place] [address] PCP - General Family Medicine 07/13/23 Ravi Barker MD Endocrinology 12/06/17 Cecilia Epperson MD [address] [place] [address] [place] [address] General Surgery 12/06/17 Tere Hernandez, PAAmandaC [address] [place] [address] [email or web address] Physician Interior Design Coordinator Hematology 07/13/20 documented as of this encounter Additional Source Comments The information contained in this document represents components of the legal health record. It is not the complete legal health record.[facility]
--- OUTSIDE RECORDS SUMMARY | 2025-07-12 05:33 | XMS_ITS | Encounter Summary ---
Author Organization [facility] Address [address] [facility] [address] [place] [address] Phone Care Team Providers Care Contracting Specialist Name Role Phone Wisam Lopez MD Primary Care Provider Ravi Barker MD Unavailable Cecilia Epperson MD Unavailable [phone] Tyrone Barragan MD Primary Care Provider [phone] Tere Hernandez PA-C Unavailable [phone] Jailene Jackson DO Primary Care Provider [phone] Reason for Referral * MRI/CAT Scan - Closed Specialty Diagnoses / Procedures Referred By Rome henry Referred To Contact Radiology Diagnoses Acquired left foot drop Procedures MRI Lumbar Spine Rico Radford PA-C [address] [facility] 1 [place], [place] Phone: tel: fax: Referral ID Status Reason Start Date Expiration Date Visits Re quested Visits Authorized [id number] Closed 03/28/2018 03/28/2019 1 1 Encounter Details Date Type Department Care Team (Late st Contact Info) Description 03/28/2018 Ancillary Orders Virtual Department 30 [place] [address] Rico Radford PA-C [address] [facility] 1 [place] [address] Acquired left foot drop Social History Tobacco Use Types Packs/Day Years [...] Pulmonary, Allergy and Critical Care Medicine 10 [place] [address] Sampson Villa MD 30 [place] [address] 11/03/2025 1:40 PM EST Office Visit [facility] [address] [place] [address] 3rd Floor, [address] [place] [address] Enrike Beltrán MD [address] [place] [address], [address] [address] [email or web address] documented as of this encounter Results * MRI LUMBAR SPINE (NEURO) WITHOUT CONTRAST (03/30/2018 5:58 PM EDT) Anatomical Region Laterality Modality L-spine Magnetic Resonan ce 03/30/2018 6:21 PM EDT Impressions 03/30/2018 6:34 PM EDT 1. Right paramedian focal disc bulge at T11-12. 2. Mild central stenosis at L2-3. 3. Grade 1 spondylolisthesis at L4-5 combined with right lateral asymmetric disc bulge narrowing the exit foramen plus moderate central stenosis. POS - [id number] Narrative 03/30/2018 6:34 PM EDT TECHNIQUE: 1.5 Zahira high-field MRI scanner. Sagittal T1, T2 and STIR, axial T1 and T2 sequences . Compare to reconstructions of abdomen CT 11/28/2017. FINDINGS: About 4 mm of anterolisthesis of L4 on L5 is unchanged. No other subluxation. Mild to moderate thoracolumbar dextroscoliosis unchanged. No marrow changes suspicious for bony trauma, tumor or infection. Normal conus position and appearance. T11-12: (Sagittal only) focal right paramedian disc bulge. No stenosis. T12-L1: Moderate broad disc bulge without focal protrusion. Facet hypertrophy but no stenosis L1-2: Moderate broad disc bulge but no focal protrusion. No significant stenosis. L2-3: Moderate broad disc bulge, slightly eccentric to the left but no focal protrusion. Endplate spurring, short pedicles and moderate posterior hypertrophy all combining to produce mild central stenosis. L3-4: No significant disc bulge nor focal protrusion. No significant central stenosis. L4-5: The grade 1 spondylolisthesis uncovers the posterior disc margin. It bulges slightly up behind L4, particularly laterally out into the right exit foramen where it does appear to displace the nerve root although there is no focal protrusion. The combination of spondylolisthesis and posterior hypertrophy produce moderate central stenosis. L5-S1: Moderately prominent broad disc bulge slightly eccentric to the right but without focal protrusion or high-grade stenosis. Procedure Note Willy Johnson MD - 03/30/2018 TECHNIQUE: 1.5 Zahira high-field MRI scanner. Sagittal T1, T2 and STIR, axial T1 and T2 sequences . Compare to reconstructions of abdomen CT 11/28/2017. FINDINGS: About 4 mm of anterolisthesis of L4 on L5 is unchanged. No othersubluxation. Mild to moderate thoracolumbar dextroscoliosis unchanged. No marrow changes suspicious for bony trauma, tumor or infection. Normal conus position and appearance. T11-12: (Sagittal only) focal right paramedian disc bulge. No stenosis. T12-L1: Moderate broad disc bulge without focal protrusion. Facethypertrophy but no stenosis L1-2: Moderate broad disc bulge but no focal protrusion. No significantstenosis. L2-3: Moderate broad disc bulge, slightly eccentric to the left but nofocal protrusion. Endplate spurring, short pedicles and moderate posteriorhypertrophy all combining to produce mild central stenosis. L3-4: No significant disc bulge nor focal protrusion. No significantcentral stenosis. L4-5: The grade 1 spondylolisthesis uncovers the posterior disc margin. Itbulges slightly up behind L4, particularly laterally out into the rightexit foramen where it does appear to displace the nerve root althoughthere is no focal protrusion. The combination of spondylolisthesis andposterior hypertrophy produce moderate central stenosis. L5-S1: Moderately prominent broad disc bulge slightly eccentric to theright but without focal protrusion or high-grade stenosis. IMPRESSION: 1. Right paramedian focal disc bulge at T11-12. 2. Mild central stenosis at L2-3. 3. Grade 1 spondylolisthesis at L4-5 combined with right lateralasymmetric disc bulge narrowing the exit foramen plus moderate centralstenosis. POS - [id number] Rico Radford PA-C IMMahin MR XSPECIALTY Final R esult documented in this encounter Visit Diagnoses Diagnosis Acquired left foot drop Acquired left foot drop documented in this encounter Additional Health Concerns Infection Onset Date Last Indicated Resolved Time CoV-Risk 09/07/2020 09/07/2020 09/21/2020 1:24 AM EST CoV-Risk Comment:Neg covid 09/12/2023 09/12/2023 09/13/2023 6:[address] CoV-Risk 01/05/2024 01/05/2024 01/16/2024 1:21 AM EDT documented as of this encounter Care Teams Contracting Specialist Relationship Specialty Start Date End Date Wisam Lopez MD [email or web address] PCP - General Family Medicine 08/19/17 02/23/20 Tyrone Barragan MD [address] [place] [phone] [email or web address] PCP - General Family Medicine 02/24/20 07/12/23 Jailene Jackson DO [address] [place] [address] PCP - General Family Medicine 07/13/23 Ravi Barker MD Endocrinology 12/06/17 Cecilia Epperson MD [address] [place] [address] [place] [address] General Surgery 12/06/17 Tere Hernandez PA-C [address] [place] [address] Physician Swimming Pool Service Technician Hematology 07/13/20 documented as of this encounter Additional Source Comments The information contained in this document represents components of the legal health record. It is not the complete legal health record.[facility]
--- OUTSIDE RECORDS SUMMARY | 2025-07-12 05:33 | XMS_ITS | Encounter Summary ---
Author Organization [facility] Address [address] [facility] [address] [place] [address] Phone Care Team Providers Care Nursing Program Chair Name Role Phone Ravi Barker MD Unavailable Cecilia Epperson MD Unavailable [phone] Tere Hernandez PA-C Unavailable [phone] Jailene Jackson DO Primary Care Provider Encounter Details Date Type Department Care Team (Late st Contact Info) Description 07/11/2025 Procedure Pass [facility], Ct Scan - [address] [address] Social History Tobacco Use Types Packs/Day Years [...] Author No Risk Indicated 07/11/2025 9:42 PM EDT Napoleon Cole RN * [place] Suicide Severity Rating Scale (Screener/Recent Self-Report) Question Answer Date of Assessment Author 1. Wish to be (Past 1 Month) No 07/11/2025 9:42 PM EDT Napoleon Cole RN 2. Non-Specific Active Suicidal Thoughts (Past 1 Month) No 07/11/2025 9:42 PM EDT [place], Napoleon Nagi, RN 6. Suicidal Behavior (Lifetime) No 07/11/2025 9:42 PM EDT Napoleon Cole RN documented as of this encounter Plan of Treatment Upcoming Encounters Date Type Department Care Team (Late st Contact Info) Description 08/22/2025 11:00 AM EST Office Visit [facility] Pulmonary, Allergy and Critical Care Medicine 10 [facility] [place] [address] Sampson Villa MD 30 [place] [address] 11/03/2025 1:40 PM EST Office Visit [facility] [address] [place] [address] 3rd Floor, [address] [place] [address] Enrike Beltrán MD [address] [place] [address] [email or web address] documented as of this encounter Visit Diagnoses Not on filedocumented in this encounter Care Teams Nursing Program Chair Relationship Specialty Start Date End Date Jailene Jackson DO 70 [place] [address] PCP - General Family Medicine 07/13/23 Ravi Barker MD Endocrinology 12/06/17 Cecilia Epperson MD [address] [place] [address] [place] [address] General Surgery 12/06/17 Tere Hernandez PA-C 30 [place] [address] Physician Slicing Machine Operator/Tender Hematology 07/13/20 documented as of this encounter Additional Source Comments The information contained in this document represents components of the legal health record. It is not the complete legal health record.[facility]
--- OUTSIDE RECORDS SUMMARY | 2025-07-12 05:33 | XMS_ITS | Encounter Summary ---
Author Organization [facility] Address [address] [facility] [address] [place] [address] Phone Care Team Providers Care Astrobiologist Name Role Phone Ravi Barker MD Unavailable [phone] Cecilia Epperson MD Unavailable [phone] Tyrone Barragan MD Primary Care Provider [phone] Tere Hernandez PA-C Unavailable [phone] Jailene Jackson DO Primary Care Provider [phone] Encounter Details Date Type Department Care Team (Late Contact Info) Description 02/09/2021 Procedure Pass [facility] Endoscopy Admitting Dept Virtual Department [address] [place] [address] Social History Tobacco Use Types Packs/Day Years [...] Upcoming Encounters Date Type Department Care Team ([facility] Contact Info) Description 08/22/2025 11:00 AM EST Office Visit [facility] Pulmonary, Allergy and Critical Care Medicine 10 [facility] [place] [address] Sampson Villa MD 30 [place] [address] 11/03/2025 1:40 PM EST Office Visit [facility] [address] [place] [address] 3rd Floor, [address] [place] [address] Enrike Beltrán MD [address] [place] [address], [address] [address] [email or web address] documented as of this encounter Visit Diagnoses Not on filedocumented in this encounter Additional Health Concerns Infection Onset Date Last Indicated Resolved Time CoV-Risk Comment:Neg covid 09/12/2023 09/12/2023 09/13/2023 6:[address] CoV-Risk 01/05/2024 01/05/2024 01/16/2024 1:21 AM EDT documented as of this encounter Care Teams Astrobiologist Relationship Specialty Start Date End Date Tyrone Barragan MD [address] [place] [phone] [email or web address] PCP - General Family Medicine 02/24/20 07/12/23 Jailene Jackson DO 70 [place] [address] PCP - General Family Medicine 07/13/23 Ravi Barker MD Endocrinology 12/06/17 Cecilia Epperson MD [address] [place] [address] [place] [address] General Surgery 12/06/17 Tere Hernandez PA-C [address] [place] [address] [email or web address] Physician Portable Sawmill Operator Hematology 07/13/20 documented as of this encounter Additional Source Comments The information contained in this document represents components of the legal health record. It is not the complete legal health record.[facility]
--- OUTSIDE RECORDS SUMMARY | 2025-07-12 05:33 | XMS_ITS | Encounter Summary ---
Author Organization [facility] Address [address] [facility] [address] [place] [address] Phone Care Team Providers Care District Resource Officer Name Role Phone Ravi Barker MD Unavailable [phone] Cecilia Epperson MD Unavailable Tere Hernandez PA-C Unavailable Jailene Jackson DO Primary Care Provider Encounter Details Date Type Department Care Team (Late st Contact Info) Description 07/13/2023 Procedure Pass [facility], Ct Scan - [address] [address] Social History Tobacco Use Types Packs/Day Years [...] Date of Assessment Author No Risk Indicated 07/13/2023 9:04 PM EDT Celeste Maynard RN * [place] Suicide Severity Rating Scale (Screener/Recent Self-Report) Question Answer Date of Assessment Author 1. Wish to be (Past 1 Month) No 023 9:04 PM EDT Celeste Maynard RN 2. Non-Specific Active Suici reagan Thoughts (Past 1 Month) No 07/13/2023 9:04 PM EDT Alphonse Maynard RN 6. Suicidal Behavior (Lifetime) No 9:04 PM EDT Celeste Maynard RN documented as of this encounter Plan of Treatment Upcoming Encounters Date Type Department Care Team (Late st Contact Info) Description 08/22/2025 11:00 AM EST Office Visit [facility] Pulmonary, Allergy and Critical Care Medicine 10 [place] [address] Sampson Villa MD [address] [place] [address] 11/03/2025 1:40 PM EST Office Visit [facility] [address] [place] [address] 3rd [facility], [address] [address] Enrike Beltrán MD [address] [place] [address] [email or web address] documented as of this encounter Visit Diagnoses Not on filedocumented in this encounter Additional Health Concerns Infection Onset Date Last Indicated Resolved Time CoV-Risk Comment:Neg covid 09/12/2023 09/12/2023 09/13/2023 6:[address] CoV-Risk 01/05/2024 01/05/2024 01/16/2024 1:21 AM EDT documented as of this encounter Care Teams District Resource Officer Relationship Specialty Start Date End Date Jailene Jackson DO [address] [place] [address] PCP - General Family Medicine 07/13/23 Ravi Barker MD Endocrinology 12/06/17 Cecilia Epperson MD [address] [place] [address] [place] [address] General Surgery 12/06/17 Tere Hernandez PA-C [address] [place] [address] [email or web address] Physician Sprinkling System Irrigator Hematology 07/13/20 documented as of this encounter Additional Source Comments The information contained in this document represents components of the legal health record. It is not the complete legal health record.[facility]
--- OUTSIDE RECORDS SUMMARY | 2025-07-12 05:33 | XMS_ITS | Encounter Summary ---
Author Organization [facility] Address [address] [facility] [address] [place] [address] Phone Care Team Providers Care Link Knitting Machine Operator Name Role Phone Wisam Lopez MD Primary Care Provider [phone] Ravi Barker MD Unavailable [phone] Cecilia Epperson MD Unavailable [phone] Tyrone Barragan MD Primary Care Provider [phone] Tere Hernandez PA-C Unavailable [phone] Jailene Jackson DO Primary Care Provider [phone] Encounter Details Date Type Department Care Team (Late st Contact Info) Description 09/19/2018 Procedure Pass [address] [place] [address] Social History Tobacco Use Types Packs/Day Years [...] Allergy and Critical Care Medicine 10 [facility] [place] [address] Sampson Villa MD 30 [place] [address] [email or web address] 11/03/2025 1:40 PM EST Office Visit [facility] [address] [place] [address] 3rd Floor, [address] [place] [address] Enrike Beltrán MD 22 [facility], [address] [address] [email or web address] documented as of this encounter Visit Diagnoses Not on filedocumented in this encounter Additional Health Concerns Infection Onset Date Last Indicated Resolved Time CoV-Risk 09/07/2020 09/07/2020 09/21/2020 1:24 AM EST CoV-Risk Comment:Neg covid 09/12/2023 09/12/2023 09/13/2023 6:[address] CoV-Risk 01/05/2024 01/05/2024 01/16/2024 1:21 AM EDT documented as of this encounter Care Teams Link Knitting Machine Operator Relationship Specialty Start Date End Date Wisam Lopez MD [email or web address] PCP - General Family Medicine 08/19/17 02/23/20 Tyrone Barragan MD 70 [place] [address] [email or web address] PCP - General Family Medicine 02/24/20 07/12/23 Jailene Jackson DO 70 [place] [address] [email or web address] PCP - General Family Medicine 07/13/23 Ravi Barker MD Endocrinology 12/06/17 Cecilia Epperson MD [address] [place] [address] [place] [address] General Surgery 12/06/17 Tere Hernandez PA-C [address] [place] [email or web address] Physician Stapler Hand Hematology 07/13/20 documented as of this encounter Additional Source Comments The information contained in this document represents components of the legal health record. It is not the complete legal health record.[facility]
--- OUTSIDE RECORDS SUMMARY | 2025-07-12 05:33 | XMS_ITS | Encounter Summary ---
Author Organization [facility] Address [address] [facility] [address] [place] [address] Phone Care Team Providers Care Linux System Administrator Name Role Phone Ravi Barker MD Unavailable Cecilia Epperson MD Unavailable [phone] Tyrone Barragan MD Primary Care Provider Tere Hernandez PA-C Unavailable [phone] Jailene Jackson DO Primary Care Provider Encounter Details Date Type Department Care Team (Late st Contact Info) Description 03/29/2021 Ancillary Orders Virtual Department 30 [place] [address] Rafiq Jeronimo MD [address] [place] [address] [email or web address] Dyspnea, unspecified type Social History Tobacco Use Types Packs/Day Years [...] Description 08/22/2025 11:00 AM EST Office Visit [facility] Pulmonary, Allergy and Critical Care Medicine 10 [facility] [place] [address] Sampson Villa MD 30 [place] [address] 11/03/2025 1:40 PM EST Office Visit [facility] [address] [place] [address] 3rd Floor, [address] [place] [address] Enrike Beltrán MD 22 [facility], [address] [place] [address] [email or web address] documented as of this encounter Results * FL UGI SERIES DOUBLE CONTRAST (03/30/2021 11:40 AM EDT) Anatomical Region Laterality Modality Abdomen Computed Radiogr aphy 03/30/2021 12:5 0 PM EDT Impressions 03/30/2021 1:02 PM EDT Focal segment of narrowing of the proximal to mid stomach, in the vicinity of a endoscopically placed clip, which remained narrowed throughout the entire procedure. 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 Narrative 03/30/2021 1:02 PM EDT FL UGI SERIES DOUBLE CONTRAST TECHNIQUE: Air Contrast Upper GI Series with Barium and Effervescent Granules. COMPARISON: Upper GI series from 03/24/2021. OPERATORS: Dr. Jax Reeder was present for the entire procedure. FINDINGS: Stomach: Redemonstrated tubular shape to the stomach, consistent with gastric sleeve procedure. There is a focal segment of narrowing of the proximal to mid stomach, in the vicinity of a endoscopically placed clip, which remains narrowed throughout the entire procedure. Radiation Exposure: Fluoroscopy Time: 2 minutes 52 seconds Number of images: 86 Procedure Note Jax Reeder MD - 03/30/2021 FL UGI SERIES DOUBLE CONTRAST TECHNIQUE: Air Contrast Upper GI Series with Barium and EffervescentGranules. COMPARISON: Upper GI series from 03/24/2021. OPERATORS: Dr. Jax Reeder was present for the entire procedure. FINDINGS: Stomach: Redemonstrated tubular shape to the stomach, consistent withgastric sleeve procedure. There is a focal segment of narrowing of theproximal to mid stomach, in the vicinity of a endoscopically placed clip,which remains narrowed throughout the entire procedure. Radiation Exposure: Fluoroscopy Time: 2 minutes 52 seconds Number of images: 86 IMPRESSION: Focal segment of narrowing of the proximal to mid stomach, in the vicinityof a endoscopically placed clip, which remained narrowed throughout theentire procedure. Findings are consistent with a focal stricture at thislocation. Rafiq Jeronimo MD [facility] Final Result documented in this encounter Visit Diagnoses Diagnosis Dyspnea, unspecified type Dyspnea, unspecified type documented in this encounter Additional Health Concerns Infection Onset Date Last Indicated Resolved Time CoV-Risk Comment:Neg covid 09/12/2023 09/12/2023 09/13/2023 6:[address] CoV-Risk 01/05/2024 01/05/2024 01/16/2024 1:21 AM EDT documented as of this encounter Care Teams Linux System Administrator Relationship Specialty Start Date End Date Tyrone Barragan MD 70 [place] [address] [email or web address] PCP - General Family Medicine 02/24/20 07/12/23 Jailene Jackson DO 70 [place] [address] PCP - General Family Medicine 07/13/23 Ravi Barker MD Endocrinology 12/06/17 Cecilia Epperson MD [address] [place] [address] [place] [address] General Surgery 12/06/17 Tere Hernandez PA-C [address] [place] [address] [email or web address] Physician Retort Setter Hematology 07/13/20 documented as of this encounter Additional Source Comments The information contained in this document represents components of the legal health record. It is not the complete legal health record.[facility]
--- OUTSIDE RECORDS SUMMARY | 2025-07-12 05:33 | XMS_ITS | Encounter Summary ---
Author Organization [facility] Address [address] [facility] [address] [place] [address] Phone Care Team Providers Care Systems Program Manager Name Role Phone Wisam Lopez MD Primary Care Provider [phone] Ravi Barker MD Unavailable [phone] Cecilia Epperson MD Unavailable [phone] Tyrone Barragan MD Primary Care Provider [phone] Tere Hernandez PA-C Unavailable [phone] Jailene Jackson DO Primary Care Provider [phone] Encounter Details Date Type Department Care Team (Late st Contact Info) Description 03/28/2018 Procedure Pass [facility], [address] [address] Social History Tobacco Use Types Packs/Day Years [...] Sign Reading Time Taken Comments Blood Pressure - - Pulse - - Temperature - - Respiratory Rate - - Oxygen Saturation - - Inhaled Oxygen Concentration - - Weight 71.2 kg (157 lb) 03/28/2018 5:24 PM EDT Height 157.5 cm (5' 2 ) 03/28/2018 5:24 PM EDT Body Mass Index 28.72 03/28/2018 5:24 PM EDT documented in this encounter Plan of Treatment Upcoming Encounters Date Type Department Care Team (Late st Contact Info) Description 08/22/2025 11:00 AM EST Office Visit [facility] Pulmonary, Allergy and Critical Care Medicine 10 [facility] [place] [address] Sampson Villa MD [address] [place] [address] [email or web address] 11/03/2025 1:40 PM EST Office Visit [facility] [address] [place] [address] 3rd Floor, [address] [place] [address] Enrike Beltrán MD [address] [place] [address] [email or web address] documented as of this encounter Visit Diagnoses Not on filedocumented in this encounter Additional Health Concerns Infection Onset Date Last Indicated Resolved Time CoV-Risk 09/07/2020 09/07/2020 09/21/2020 1:24 AM EST CoV-Risk Comment:Neg covid 09/12/2023 09/12/2023 09/13/2023 6:[address] CoV-Risk 01/05/2024 01/05/2024 01/16/2024 1:21 AM EDT documented as of this encounter Care Teams Systems Program Manager Relationship Specialty Start Date End Date Wisam Lopez MD [email or web address] PCP - General Family Medicine 08/19/17 02/23/20 Tyrone Barragan MD 70 [place] [address] [email or web address] PCP - General Family Medicine 02/24/20 07/12/23 Jailene Jackson DO 70 [place] [address] PCP - General Family Medicine 07/13/23 Ravi Barker MD Endocrinology 12/06/17 Cecilia Epperson MD [address] [place] [address] [place] [address] General Surgery 12/06/17 Tere Hernandez PA-C 30 [place] [address] Physician Alley Worker Hematology 07/13/20 documented as of this encounter Additional Source Comments The information contained in this document represents components of the legal health record. It is not the complete legal health record.[facility]
--- OUTSIDE RECORDS SUMMARY | 2025-07-12 05:33 | XMS_ITS | Encounter Summary ---
Author Organization [facility] Address [address] [facility] [address] [place] [address] Phone Care Team Providers Care Occupational Therapist Name Role Phone Ravi Barker MD Unavailable Cecilia Epperson MD Unavailable Tere Hernandez PA-C Unavailable Jailene Jackson DO Primary Care Provider [phone] Encounter Details Date Type Department Care Team (Latest Contact Info) Description 08/29/2023 Transcribe Orders [facility] Laboratory [address] 2nd [place] [address] Marvin Lew MD [address] [facility] [address] [place] [address] Stage 3a chronic kidney disease (Primary Dx); Essential hypertension, malignant; Iron deficiency anemia, unspecified iron deficiency anemia type Social History Tobacco Use Types Packs/Day [...] Pulmonary, Allergy and Critical Care Medicine 10 [facility] [place] [address] Sampson Villa MD [address] [place] [address] 11/03/2025 1:40 PM EST Office Visit [facility] [address] [place] [address] 3rd Floor, [address] [address] Enrike Beltrán MD [address] [place] [address] [email or web address] documented as of this encounter Results * (ABNORMAL) 25-OH vitamin D (08/29/2023 3:05 PM EST) 25 OH VIT D (TOTAL) 70(H) 30 - 60 ng/mL [facility] Blood 08/29/2023 3:05 PM EST 08/29/2023 3:12 PM EST us Marvin Lew MD LAB BLOOD ORDERABLES Final Resul t [address] [address] * (ABNORMAL) Microalbumin/creatinine ratio, random urine (08/29/2023 3:05 PM EST) URINE MICROALBUMIN 2.9(H) 0 - 2.3 mg/dL [facility] URINE CREATININE 191 mg/dL [employer]IPPING POINT INSPECT[employer] [facility] MICROALB/CRE RATIO 15.2 0 - 20 mg/g Cre [facility] Urine (Urine) 08/29/2023 3:0 5 PM EST 08/29/2023 4:09 PM EST us Marvin Lew MD URINE ORDERABLES Final Result Performing Organization Address [facility] Co de Phone Number [address] [address] * Parathyroid hormone (PTH) (08/29/2023 3:05 PM EST) PARATHYROID HORMONE 50 15 - 65 pg/mL [facility] Blood 08/29/2023 3:05 PM EST 08/29/2023 3:12 PM EST us Marvin Lew MD LAB BLOOD ORDERABLES Final Resul t Performing Organization Address [facility] de Phone Number [address] [address] * (ABNORMAL) Renal panel (08/29/2023 3:05 PM EST) SODIUM 139 133 - 146 mmol/L [facility] POTASSIUM 4.7 3.3 - 5.1 mmol/L [facility] CHLORIDE 100 96 - 108 mmol/L [facility] CO2 25 21 - 35 mmol/L [facility] GLUCOSE 146(H) 70 - 99 mg/dL [facility] BUN 19 6 - 19 mg/dL [facility] CREATININE 1.30 0.5 - 1.5 mg/dL [facility] CALCIUM 9.7 8.4 - 10.3 mg/dL [facility] PHOSPHORUS 3.4 2.7 - 4.5 mg/dL [facility] ALBUMIN 4.2 3.9 - 4.8 g/dL [facility] EGFR 44(L) >59 mL/min/1.7 3m2 [facility] Comment:Estimated glomerular filtration rate calculated using the CKD-EPI refit equation. ANION GAP 19 10 - 20 mmol/L [facility] Blood 08/29/2023 3:05 PM EST 08/29/2023 3:12 PM EST us Marvin Lew MD LAB BLOOD ORDERABLES Final Resul t [address] [address] documented in this encounter Visit Diagnoses Diagnosis Stage 3a chronic kidney disease- Primary Essential hypertension, malignant Iron deficiency anemia, unspecified iron deficiency anemia type documented in this encounter Additional Health Concerns Infection Onset Date Last Indicated Resolved Time CoV-Risk Comment:Neg covid 09/12/2023 09/12/2023 09/13/2023 6:[address] CoV-Risk 01/05/2024 01/05/2024 01/16/2024 1:21 AM EDT documented as of this encounter Care Teams Occupational Therapist Relationship Specialty Start Date End Date Jailene Jackson DO [address] [place] [address] PCP - General Family Medicine 07/13/23 Ravi Barker MD Endocrinology 12/06/17 Cecliia Epperson MD [address] [place] [address] [place] [address] General Surgery 12/06/17 Tere Hernandez PA-C [address] [place] [address] Physician Orthopedic Shoe Maker Hematology 07/13/20 documented as of this encounter Additional Source Comments The information contained in this document represents components of the legal health record. It is not the complete legal health record.[facility]
--- OUTSIDE RECORDS SUMMARY | 2025-07-12 05:33 | XMS_ITS | Encounter Summary ---
Author Organization [facility] Address [address] [place] [address] Phone Care Team Providers Care Dog Daycare Provider Name Role Phone Jailene Jackson DO Primary Care Provider [phone] Encounter Details Date Type Department Care Team (Late Contact Info) Description 12/10/2019 Orders Only [facility] [address] [facility] 3 [place] [address] Alexa Peterson MD Chronic kidney disease stage [...] [facility] [place] [address] Inna [address] [place] [phone] Marvin Lew MD [address] [place] [address] [place] [phone] documented as of this encounter Visit Diagnoses Diagnosis Chronic kidney disease stage 3 (HCC) documented in this encounter Care Teams Dog Daycare Provider Relationship Specialty Start Date End Date Jailene Jackson DO [address] [place] [phone] PCP - General Family Medicine 02/29/24 documented as of this encounter
--- OUTSIDE RECORDS SUMMARY | 2025-07-12 05:33 | XMS_ITS | Encounter Summary ---
Author Organization [facility] Address [address] [facility] [facility] [address] [place] [address] Phone Care Team Providers Care Patrol Guard Name Role Phone Ravi Barker MD Unavailable Cecilia Epperson MD Unavailable Tere Hernandez PA-C Unavailable Jailene Jackson DO Primary Care Provider Encounter Details Date Type Department Care Team (Late st Contact Info) Description 09/12/2023 Procedure Pass [facility], Ct Scan - [address] [address] Social History Tobacco Use Types Packs/Day Years [...] 09/13/2023 11:38 AM Karyn Pablo RN * [place] Suicide Severity Rating Scale (Screener/Recent Self-Report) Question [...] Description 08/22/2025 11:00 AM EST Office [place] [facility] [place], Allergy and Critical Care Medicine [address] [place] [address] Sampson Villa MD [address] [place] [address] 11/03/2025 1:40 PM EST Office Visit [facility] [address] [place] [address] 3rd [facility], [address] [address] Enrike Beltrán MD [address] [place] [address] [email or web address] documented as of this encounter Visit Diagnoses Not on filedocumented in this encounter Additional Health Concerns Infection Onset Date Last Indicated Resolved Time CoV-Risk Comment:Neg covid 09/12/2023 09/12/2023 09/13/2023 6:[address] CoV-Risk 01/05/2024 01/05/2024 01/16/2024 1:21 AM EDT documented as of this encounter Care Teams Patrol Guard Relationship Specialty Start Date End Date Jailene Jackson DO [address] [place] [address] PCP - General Family Medicine 07/13/23 Ravi Barker MD Endocrinology 12/06/17 Cecilia Epperson MD [address] [place] [address] [place] [address] General Surgery 12/06/17 Tere Hernandez PA-C [address] [place] [address] [email or web address] Physician Licensing Registration Examiner Hematology 07/13/20 documented as of this encounter Additional Source Comments The information contained in this document represents components of the legal health record. It is not the complete legal health record.[facility]
--- OUTSIDE RECORDS SUMMARY | 2025-07-12 05:33 | XMS_ITS | Data Portability ---
Author Organization [facility] [employer], [place] Address [address] [place] [address] [place] [address] Care Team Providers Care Java Web Engineer Name Role Phone GARO BETHEA Referring Provider [phone] GARO BETHEA Primary Care Provider GARO BETHEA Referring Provider Assessment Encounter Date Assessment Date Assessment LastModified by Organization Details LastModified Time 07/29/2024 07/29/2024 IMPRESSION: Postconcussive migraine and vertiginous dizziness. Migraine medication may help. I offered a trial of Qulipta at the introductory 30 mg daily dose. I described possible side effects. She excepted. She wonders about the dizziness. I can think of no cure. There is a small chance that her dizziness is part of her postconcussive migraine and to the extent that an oral medication helps for the headache, it might help for the dizziness. Qulipta should be covered by insurance. They often want evidence of insufficiency of older class I medications. They are contraindicated in her case: Propranolol or beta-blockers more generally are contraindicated because of her existing blood pressure medications. Topiramate, Depakote are contraindicated because of her age and possible effects of cognitive slowing. Amitriptyline and venlafaxine ER are contraindicated because of existing medications duloxetine and lamotrigine and/or because of psychiatric comorbidity. --July 29, 2024 Medications per patient: Atorvastatin, amlodipine, esomeprazole, duloxetine, lamotrigine, famotidine, furosemide, latanoprost eyedrops, celecoxib, levothyroxine, vitamin D, triamcinolone >>>>>>>>>>>> PLAN Briseida Adair July 29, 2024 For migraine prevention: Start Qulipta 30 mg daily Possible side effects include nausea 5 to 9%, constipation 6%, fatigue 4 to 6%, decreased appetite 1 to 2%. Do not take Qulipta if you are taking verapamil. If side effects are mild, wait up to a week to see if your body gets used to the medication and the side effects go away. If side effects are not mild or do not go away after a week, stay on the medication if the side effects are very mild, otherwise go back to the lower dose or stop the medication. Do not drink large amounts of grapefruit while you are taking this medicine as this could make the medication too strong. A single cup of grapefruit juice is okay. Qulipta concentration in the bloodstream can in general be increased by strong CY inhibitors. If you start any new medications with another healthcare provider, please ask that healthcare provider if the new medication is a strong CY inhibitor. Such medications are not common. However, if it is, please contact me to discuss reduction of Qulipta dose. I have given you samples for 3 days of Qulipta, 30 mg. If this helps and does not cause side effects, excelsior picker prescription that I sent. If there is an alteration issue at the pharmacy and it is not covered, please contact our office. In the meanwhile, we will be attempting preauthorization. If it does not help, but does not cause side effects, contact our office and we will put in a prescription for the higher dose, 60 mg.. Follow-up 3 months [email or web address] Not available 07/29/2024 14:26:28 Plan of Treatment Reminders Order Date Submit Date Provider Last Modified By Organization Details Last Modified Time Details Appointments None recorded. Lab None recorded. Referral None recorded. Procedures None recorded. Surgeries None recorded. Imaging None recorded. Medication Orders Qulipta [address] [facility][id number], [address] [place], [address], 14:21:35 Patient TargetsNo targets recorded. Patient Instructions Encounter Date Encounter Id Patient Instructions Last Modified By Organization Details Last Modified Time 07/29/2024 [id number] Discussion acros s issues of diagnoses and management and same day associated chart review and management greater than 50% greater than 60 minutes [email or web address] Not available 07/29/2024 14:26:11 Reason for Referral None Reported. Procedures Surgical History Date Name Laterality Status Provider Name and Address Organization Details Recorded Time 07/29/2024 DATA REVIEW completed Rc Gautam MD [address] [place] [address] [place], [phone], [facility] 07/29/2024 14:18:25 Imaging Results None recorded. Procedure Notes None recorded. Medical Equipment None Reported. Allergies Allergen ID Allergen Name Allergen Category Reaction Reaction Severity Criticality Documentation Date Start Date Code Code System Note Provider Name and Address Organization Details Recorded Time 4559 erythromy livan medicatio n Not available Not available Not available 07/29/2024 4053 RxNorm Kely Sutton [facility] 4 13:30:07 4560 Victoza medicatio n Not available Not available Not available 07/29/2024 75476 3 RxNorm Kely Sutton [facility] 4 13:30:41 4561 Substance with sulfonami de structure and antibacte rial mechanism of action (substanc e) medicatio n Not available Not available Not available 07/29/2024 39864 8003 SNOMED Kelyviri Sutton [facility] 4 13:30:46 Medications Name Sig Start Date Stop Date Status Note LastModified by Organization Details LastModified Time celecoxib 200 mg capsule TAKE 1 CAPSULE BY MOUTH TWICE A DAY DIRECTED active Not Available Not Available No t Available furosemide 40 mg tablet TAKE 1 TABLET BY MOUTH EVERY DAY active Not Available Not Available No t Available latanoprost 0.005 % eye drops INSTILL 1 DROP INTO AFFECTED EYE(S) BY OPHTHALMIC ROUTE ONCE DAILY INTHE EVENING active Not Available Not Available No t Available atorvastatin 40 mg tablet TAKE 1 TABLET BY MOUTH EVERY DAY IN THE MORNING active Not Available Not Available No t Available lamotrigine 150 mg tablet TAKE 1 TABLET BY MOUTH EVERY DAY active Not Available Not Available No t Available FreeStyle Lancets 28 gauge USE TO TEST BLOOD SUGAR ONCE DAILY active Not Available Not Available N ot Available famotidine 40 mg tablet TAKE 1 TABLET BY MOUTH EVERY DAY active Not Available Not Available No t Available meclizine 12.5 mg tablet TAKE 2 TABLETS 3 TIMES A DAY BY ORAL ROUTE NEEDED FOR 10 DAYS. active Not Available Not Available No t Available ciprofloxaci n 250 mg tablet TAKE 1 TABLET BY MOUTH TWICE A DAY FOR 7 DAYS active Not Available Not Available No t Available amlodipine 5 mg tablet TAKE 2 TABLETS BY MOUTH EVERY DAY active Not Available Not Available No t Available tramadol 50 mg tablet TAKE 1 TO 2 TABLETS BY MOUTH EVERY 6 HOURS NEEDED FOR PAIN MAX 8 TABS/DAY active Not Available Not Available N ot Available levothyroxin e 100 mcg tablet TAKE 1 TABLET BY MOUTH EVERY DAY active Not Available Not Available No t Available lorazepam 0.5 mg tablet TAKE 1 TABLET BY MOUTH EVERY DAY NEEDED FOR ANXIETY active Not Available Not Available No t Available aspirin 325 mg tablet,delay ed release TAKE 1 TABLET BY MOUTH TWICE A DAY FOR 30 DAYS AFTER SERGERY active Not Available Not Available No t Available trazodone 100 mg tablet TAKE 1/2 - 2 TABLETS BY MOUTH AT BEDTIME NEEDED FOR MILD INSOMNIA active Not Available Not Available No t Available amlodipine 10 mg tablet TAKE 1 TABLET BY MOUTH EVERY DAY active Not Available Not Available No t Available trazodone 150 mg tablet TAKE 2 TABLETS BY MOUTH AT BEDTIME active Not Available Not Available No t Available levothyroxin e 125 mcg tablet TAKE 1 TABLET EVERY DAY *REPEAT LABS IN 2 MONTHS* active Not Available Not Available No t Available docusate sodium 100 mg capsule TAKE 1 CAPSULE BY MOUTH TWICE A DAY DIRECTED MED IS TO BE STARTED AFTER SURGERY active Not Available Not Available No t Available bisacodyl 5 mg tablet,delay ed release TAKE 4 TABLETS ORALLY DIRECTED 1 active Not Available Not Available N ot Available furosemide 20 mg tablet TAKE 1 TABLET BY MOUTH EVERY DAY active Not Available Not Available No t Available ergocalcifer ol (vitamin D2) 1,250 mcg (50,000 unit) capsule TAKE 1 CAPSULE BY MOUTH ONE TIME PER WEEK DRUG NOT COVERED active Not Available Not Available No t Available albuterol sulfate HFA 90 mcg/actuatio n aerosol inhaler INHALE 2 PUFFS BY MOUTH EVERY 4 HOURS active Not Available Not Available No t Available hydromorphon e 4 mg tablet TAKE 1/2 TO 1 TABLET BY MOUTH EVERY 3 HOURS NEEDED FOR PAIN active Not Available Not Available No t Available fluoxetine 20 mg capsule TAKE 3 CAPSULES BY MOUTH EVERY DAY IN THE MORNING active Not Available Not Available No t Available fluticasone propionate 50 mcg/actuatio n nasal spray,suspen chrissy SPRAY 2 SPRAYS BY NASAL ROUTE DAILY active Not Available Not Available No t Available lamotrigine 100 mg tablet TAKE 1 TABLET BY MOUTH EVERY DAY active Not Available Not Available No t Available levothyroxin e 112 mcg tablet TAKE 1 TABLET BY MOUTH EVERY DAY active Not Available Not Available No t Available duloxetine 30 mg capsule,sarah yed release TAKE 1 CAP DAILY (WITH FLUOXETINE 40MG). FOR 2 WEEKS active Not Available Not Available No t Available duloxetine 60 mg capsule,sarah yed release TAKE 1 CAPSULE BY MOUTH EVERY DAY active Not Available Not Available No t Available FreeStyle Lite Strips USE TO TEST BLOOD SUGAR ONCE DAILY active Not Available Not Available N ot Available FreeStyle [place] Lite kit USE TO CHECK BLOOD SUGAR ONCE DAILY active Not Available Not Available No t Available GaviLyte-G 236 gram-22.74 gram-6.74 gram-5.86 gram oral solution 4000ML ORALLY DIRECTED 1 active Not Available Not Available N ot Available Anoro Ellipta 62.5 mcg-25 mcg/actuatio n powder for inhalation TAKE 1 PUFF BY MOUTH EVERY DAY active Not Available Not Available No t Available Aimovig Autoinjector 70 mg/mL subcutaneous auto-injecto r active Not Available Not Available Not Available Qulipta 30 mg tablet Take 1 tablet every day by oral route for 30 days, for pos concussive headache. 2023 active Not Available Not Available Not Avai lable Vitals Date Recorded Body height Body mass index (BMI) Body weight Respiratory rate Provider Name and Address Organization Details Last Updated DateTime 07/29/2024 154.94 cm 25.1 kg/m2 94593.79 g 12 /min Kely Sutton [facility] 07/29/2024 13:32:13 Social History Question Answer Notes LastModified by Organizat ion Details LastModified Time What Is Your Level Of Caffeine Consumption? Occasional Information not available 07/29/2024 What Is The Highest Grade Or Level Of School You Have Completed Or The Highest Degree You Have Received? [id number] Information not available 07/29/2024 Which Of Your Hands Is Dominant? Right Information not available 07/29/2024 Sex: Unknown Functional Status Question Answer Note LastModified by Organizat ion Details LastModified Time What is your level of alcohol consumption? Patient refused Information not available 07/29/2024 Mental Status None recorded. Family History Nothing Reported. Medical History Condition Response Claustrophobia N Head Trauma/Injury N Hospitalizations N High Blood Pressure or Hypertension Y Thyroid Problems Y Depression Y Brain Tumors N Lung Disease N COPD or emphysema Y Encephalitis N PTSD N Vitamin B12 deficiency Y Heart Attack ([place]) N Spine Problems N Obstructive Sleep Apnea N Alcoholism N Diabetes N Autoimmune disease N Bleeding Disorder N Arthritis N Cerebral Palsy N Tuberculosis N Developmental Problems N Neck Problems N Cancer N Back Problems N Stroke N Asthma Y Heartburn, acid reflux, GERD Y Vitamin D Deficiency Y Epilepsy/Seizures N Bipolar Disorder N Sleep Disorder N Aneurysm N Hepatitis N Liver Disease N Heart Disease Y Fibromyalgia N Headaches Y High Cholesterol or Hyperlipidemia Y Osteoporosis Y Kidney Disease Y Gynecological HistoryNo gynecological history recorded. Obstetrics History GPAL:G 0 P 0 0 0 0 Past Encounters Encounter ID Performer Location Encounter Start Date Encounter Closed Date Diagnosis/Indication Diagnosis SNOMED-CT Code Diagnosis ICD10 Code Diagnosis IMO Codes Diagnosis Note [id number] Rc Gautam MD [facility] [address] [place] [address] JONNATHAN [place]VAR[place]O [id number] 07/29/2024 13:00:31 07/29/2024 16:50:03 Concussion with loss of consciousness 46680833 S06.0X9A Migraine without aura 56 688273 G43.009 Health Concerns Section Related Observation LastModified by Organization Detai ls LastModified Time None Recorded Concern Status LastModified by Organization Details LastModified Time None Recorded Advance Directives Directive None Recorded Payers Insurance Date Sequence Insurance Name Policy Number Policy Hidalgo Covered Member ID Hidalgo Member ID Guarantor Name 08/06/2024 1 [place] Briseida Adair [id number] Briseida Adair 08/23/2024 2 [id number] Briseida Adair Notes Date Note Type Note Provider Name and Address Organization Details Recorded Time 07/29/2024 text/html Briseida Adair presents for initial neurology consultation for assessment and management of intermittent left-sided headache and episodic positional vertiginous dizziness residual from August 2023 head injury from fall shortly after arriving home status post right knee surgery. Past history per PCP includes Type 2 diabetes, hyperlipidemia, hypertension, sleep apnea, osteoporosis, falls, hypothyroidism, GERD, history of kidney stones, status post parathyroidectomy, chronic renal failure stage III, secondary to diabetes, asthma with history of status asthmaticus, depression S he is unaccompanied.>>>>>>> >>>>>July 29, 2024 presenting symptomotology:In very late August,, several hours after arriving home after hospital discharge from right knee surgery, she fell. Her head struck something, she is not sure what, but it opened a big wound. With lots of blood She lost consciousness and had patchy returning to consciousness for a while afterwards, and did not fully return consciousness until sometime after arriving at the hospital. She remembered part of the ambulation drive w hen they put elissa to close her scalp wound in the left parietal posterior frontal region.Before the injury, she had only occasional headaches, symmetrical Around Her Head like a cap, extending to posterior neck, perhaps once a month, gone within an hour with Tylenol. She also had occasional brief dizziness, seconds long occurring once a day t wice a week. She attributes at least part of that pre-existing dizziness to residual from foot drop, she thinks bilateral, right side worse in any case, better after surgery.After her August 2023 head injury, she had significant left-sided headache continuous dizziness. There has since been noticeable but only partial improvement.Residual dizziness is worse standing or walking but even when she is sitting it is always present at least at a very low level. It may even worsen when she is just sitting there with a bowling. However, flares of worse dizziness usually, with movements, of body or head, or with changes of position. She still does not drive because of, usually with positional change.Residual headache is daily, intermittent during the day. It involves her left lateral temporal and forehead, occasionally more mildly contralaterally on the right. She has intermittent intense sharp brief pain in the anterior frontal region. There is a constant focal pain in the region of her scar from her injury. It also itches in and around there. It hurts if she touches it and more if she pushes.She is upset and heartbroken about the post injury treatment of her wound at [facility]: They never put in stitches. In addition, her head was caked with blood at discharge, with layers of blood. It took her weeks to get it off. Only then, weeks later, could she see the wound and tell that there were no stitches. She is quite angry about this. She has thought about calling [facility] but then has subsequently thought about moving on. Rc Gautam MD [address] [place] [address] [place], [phone], [facility] 07/29/2024 14:26:48 OBGyn Episode No OBEpisode recorded.
--- OUTSIDE RECORDS SUMMARY | 2025-07-12 05:33 | XMS_ITS | Encounter Summary ---
Author Organization [facility] Address [address] [facility] [address] [place] [address] Phone Care Team Providers Care Tow Motor Driver Name Role Phone Wisam Lopez MD Primary Care Provider Ravi Barker MD Unavailable [phone] Cecilia Epperson MD Unavailable Tyrone Barragan MD Primary Care Provider [phone] Tere Hernandez PA-C Unavailable [phone] Jailene Jackson DO Primary Care Provider [phone] Encounter Details Date Type Department Care Team (Latest Contact Info) Description 11/23/2018 Ancillary Orders Virtual Department [address] [place] [address] Rafiq Jeronimo MD [address] [place] [phone] [email or web address] Nausea and vomiting, intractability of [...] Pulmonary, Allergy and Critical Care Medicine [address] [place] [address] Sampson Villa MD [address] [place] [address] [email or web address] 11/03/2025 1:40 PM EST Office Visit [facility] [address] [place] [address] 3rd Floor, [address] [place] [address] Enrike Beltrán MD [address] [address] [email or web address] documented as of this encounter Visit Diagnoses Diagnosis Nausea and [...] documented as of this encounter Care Teams Tow Motor Driver Relationship Specialty Start Date End Date Wisam Lopez MD [email or web address] PCP - General Family Medicine 08/19/17 02/23/20 Tyrone Barragan MD [address] [place] [phone] [email or web address] PCP - General Family Medicine 02/24/20 07/12/23 Jailene Jackson DO [address] [place] [address] PCP - General Family Medicine 07/13/23 Ravi Barker MD Endocrinology 12/06/17 Cecilia Epperson MD [address] [place] [address] Dr Vaca [address] [place] [address] General Surgery 12/06/17 Tere Hernandez PA-C [address] [place] [phone] [email or web address] Physician Ampoule Filler And Sealer Hematology 07/13/20 documented as of this encounter Additional Source Comments The information contained in this document represents components of the legal health record. It is not the complete legal health record.[facility]
--- OUTSIDE RECORDS SUMMARY | 2025-07-12 05:33 | XMS_ITS | Encounter Summary ---
Author Organization [facility] Address [address] [place] [address] Phone Care Team Providers Care Poultry Killer Name Role Phone Jailene Jackson DO Primary Care Provider [phone] Encounter Details Date Type Department Care Team (Late Contact Info) Description 12/25/2020 Orders Only [facility] [address] [facility] [address] [place] [address] Alexa Peterson MD Stage 3 chronic kidney disease (HCC) Social History Tobacco Use Types Packs/Day [...] Department Care Team (Late Contact Info) Description 04/16/2026 1:45 PM EDT Office Visit [facility] - [address] Inna FLOREZ [address] [place] [phone] Marvin Lew MD [address] [place] [address] [place] [phone] documented as of this encounter Visit Diagnoses Diagnosis Stage 3 chronic kidney disease (HCC) documented in this encounter Care Teams Poultry Killer Relationship Specialty Start Date End Date Jailene Jackson DO [address] [place] [phone] PCP - General Family Medicine 02/29/24 documented as of this encounter
--- OUTSIDE RECORDS SUMMARY | 2025-07-12 05:33 | XMS_ITS | Encounter Summary ---
Author Organization [facility] Address [address] [place] [address] Phone Care Team Providers Care Documentation Writer Name Role Phone Wisam Lopez MD Primary Care Provider [phone] Ravi Barker MD Unavailable [phone] Cecilia Epperson MD Unavailable [phone] Tyrone Barragan MD Primary Care Provider [phone] Tere Hernandez PA-C Unavailable [phone] Jailene Jackson DO Primary Care Provider [phone] Encounter Details Date Type Department Care Team (Late Contact Info) Description 12/11/2017 Procedure Pass [facility] Endoscopy Admitting Dept Virtual Department [address] [place] [id number] Social History Tobacco Use Types Packs/Day Years [...] Pulmonary, Allergy and Critical Care Medicine [address] [facility] [place] [address] Sampson Villa MD [address] [place] [address] [email or web address] 11/03/2025 1:40 PM EST Office Visit [facility] [address] [place] [address] [address] Floor, [address] [place] [address] Enrike Beltrán MD [address] [facility], [address] [address] [email or web address] documented as of this encounter Visit Diagnoses Not on filedocumented in this encounter Additional Health Concerns Infection Onset Date Last Indicated Resolved Time CoV-Risk 09/07/2020 09/07/2020 09/21/2020 1:24 AM EST CoV-Risk Comment:Neg covid 09/12/2023 09/12/2023 09/13/2023 6:[address] CoV-Risk 01/05/2024 01/05/2024 01/16/2024 1:21 AM EDT documented as of this encounter Care Teams Documentation Writer Relationship Specialty Start Date End Date Wisam Lopez MD [email or web address] PCP - General Family Medicine 08/19/17 02/23/20 Tyrone Barragan MD [address] [place] [address] [email or web address] PCP - General Family Medicine 02/24/20 07/12/23 Jailene Jackson DO [address] [place] [address] [email or web address] PCP - General Family Medicine 07/13/23 Ravi Barker MD Endocrinology 12/06/17 Cecilia Epperson MD [address] [place] [address] [place] [address] General Surgery 12/06/17 Tere Hernandez PA-C [address] [place] [id number] [email or web address] Physician Line Crew Supervisor Hematology 07/13/20 documented as of this encounter Additional Source Comments The information contained in this document represents components of the legal health record. It is not the complete legal health record.[facility]
--- OUTSIDE RECORDS SUMMARY | 2025-07-12 05:33 | XMS_ITS | Encounter Summary ---
Author Organization [facility] Address [address] [place] [address] Phone Care Team Providers Care Bottom Brusher Name Role Phone Jailene Jackson DO Primary Care Provider [phone] Reason for Visit * Reason Comments Med Refill Encounter Details Date Type Department Care Team (Late Contact Info) Description 11/13/2019 Refill [facility] [address] [facility] [address] [place] [address] Alexa Peterson MD Social History Tobacco Use Types Packs/Day Years [...] Visit [facility] - [address] In[address] [place] [phone] Marvin Lew MD [address] [place] [address] [place] [phone] documented as of this encounter Visit Diagnoses Not on filedocumented in this encounter Care Teams Bottom Brusher Relationship Specialty Start Date End Date Jailene Jackson DO [address] [place] [phone] PCP - General Family Medicine 02/29/24 documented as of this encounter
--- OUTSIDE RECORDS SUMMARY | 2025-07-12 05:33 | XMS_ITS | Clinical Summary ---
Author Organization [facility] Address [address] [place] [address] Phone Care Team Providers Care General Studies Program Chair Name Role Phone Ravi Barker MD Unavailable [phone] Cecilia Epperson MD Unavailable Tere Hernandez PA-C Unavailable [phone] Jailene Jackson DO Primary Care Provider Allergies Active Allergy Reactions Criticality Noted Date Comments Aspirin 11/18/2022 Other reaction(s): taking celebrex Azithromycin Other (See Comments) 12/09/2020 Celecoxib Acute Interstitial Nephritis High 09/16/2023 Patient denies this allergy Erythromycin 08/19/2017 Pollen Extracts Sneezing 12/24/2024 Sneezing, runny nose Sulfa (Sulfonamide Antibiotics) 08/19/2017 Other reaction(s): rash Liraglutide 08/19/2017 Medications lamoTRIgine (LAMICTAL) 100 MG IMMEDIATE release tablet Take 200 mg by mouth daily. Active latanoprost (XALATAN) 0.005 % ophthalmic solution Place 1 drop into each eye nightly. Active levothyroxine (SYNTHROID, LEVOTHROID) 112 MCG tablet Take 112 mcg by mouth every morning. Active albuterol 90 mcg/actuation inhaler Inhale 2 puffs into the lungs every 4 (four) hours as needed for wheezing. Active fluticasone propionate (FLONASE) 50 mcg/actuation nasal spray 1 spray by Nasal route daily. Active ergocalciferol (DRISDOL) 50,000 unit capsule Take 50,000 Units by mouth once a week. Active esomeprazole (NEXIUM) 40 MG capsule Take 40 mg by mouth 2 (two) times a day. Active famotidine (PEPCID) 40 MG tablet Take 40 mg by mouth daily. Active traZODone (DESYREL) 100 MG tablet Take 200 mg by mouth nightly at bedtime. 3 Active polyethylene glycol (MIRALAX) 17 gram packet Take 17 g by mouth 2 (two) times a day as needed for moderate constipation. Take up to twice daily to help have a bowel movement. Once moving bowels, can decrease to daily or as needed. 3 Active acetaminophen (TYLENOL) 325 mg tablet Take 2 tablets (650 mg total) by mouth every 6 (six) hours as needed. 0 4 Active biotin 1 mg tablet Take 1,000 mcg by mouth daily. Active cycloSPORINE (RESTASIS) 0.05 % suspension Apply 1 drop to eye. 3 Active docusate (COLACE) 100 mg tablet Take 100 mg by mouth. 4 Active LORazepam (ATIVAN) 0.5 MG tablet if needed 3 Active meclizine (ANTIVERT) 12.5 mg tablet 3 Active senna (SENOKOT) 8.6 mg tablet Take 8.6 mg by mouth. 3 Active celecoxib (CELEBREX) 200 MG capsule 4 Active PULMICORT FLEXHALER 180 mcg/actuation inhaler 4 Active atorvastatin (LIPITOR) 40 MG tablet take 1 tablet by mouth every day in the morning 90 tablet 3 4 Active Additional Information Patient taking differently:40 mg OralNightly, Reported on 01/22/2025 umeclidinium-vi lanteroL (ANORO ELLIPTA) 62.5-25 mcg/actuation diskus inhaler Inhale 1 puff into the lungs daily. 1 each 5 4 12/25/19 26 Active furosemide (LASIX) 40 MG tablet Take 1 tablet (40 mg total) by mouth every morning. 30 tablet 5 4 Active fluticasone propionate (FLONASE) 50 mcg/actuation nasal spray 2 sprays by Nasal route daily. 16 g 5 4 Active DULoxetine (CYMBALTA) 30 MG capsule Take 30 mg by mouth daily. 4 Active amLODIPine (NORVASC) 10 MG tabletIndicatio ns:Medication refill TAKE 1 TABLET BY MOUTH EVERY DAY 90 tablet 3 4 Active azithromycin (ZITHROMAX) 250 MG tablet One tablet every Monday , Monday and Monday 12 tablet 11 5 Active fluticasone furoate (ARNUITY ELLIPTA) 200 mcg/actuation DsDv Inhale 1 puff into the lungs daily. 30 each 5 Active Active Problems Problem Noted Date Diagnosed Date Chronic obstructive pulmonary disease 07/05/2024 Dyspnea 07/05/2024 Bronchiolitis 07/05/2024 Chronic heart failure with p reserved ejection fraction (HFpEF) 10/23/2023 Acute respiratory failure with hypoxia 4 Assessment & Plan (09/17/2023 12:26 PM EST): - CTA negative for PE May have had fluid overload related to DESMOND Restart lasix at [facility] lower dose to see if can wean off oxygen History of right knee joint replacement 09/13/19 24 Assessment & Plan (09/14/2023 4:42 PM EST): - recent knee replacement surgery 09/[address] Samir Ken - cont hydromorphone, cont PT follow up with Dr. Ken as previously arranged Acute on chronic diastolic congestive heart fail ure 09/12/2023 Assessment & Plan (09/17/2023 12:25 PM EST): Echo EF 55-60%, did have but not severe, does have diastolic dysfunction Renal felt DESMOND from NSAID. DESMOND (acute kidney injury) 07/13/2023 Iron deficiency anemia 06/28/2022 Transaminitis 09/07/2020 Assessment & Plan (09/10/2020 5:10 PM EST): Likely due to ischemic hepatitis given its sudden onset. Hep C, hep B, hep A testing are negative. Immunoglobulin G negative. Iron level is normal, TSH normal -Discontinue atorvastatin, hold Tylenol. -Trend LFTs daily -If continuing to improve will discharge tomorrow with outpatient follow-up Prolonged Q-T interval on ECG 09/07/2020 Assessment & Plan (09/10/2020 5:10 PM EST): Likely secondary to combination of QT prolonging agents Continue fluoxetine for now. -will check daily EKGs Hypomagnesemia 05/16/2020 Assessment & Plan (09/09/2020 4:44 PM EST): Continue with oral supplementation Assessment & Plan (05/17/2020 7:08 PM EDT): - magnesium level improved but still feeling weak - repleting potassium today - check pth and urinary mg as recommended by Dr. Jeronimo Anemia 02/24/2020 Assessment & Plan (02/25/2020 6:17 PM EDT): Baseline based on chart review appears that she her hemoglobin is around 10, most recently hemoglobin was 8.6 at [facility] prior to admission. She denies any [...] not have a bypass, or impaired absorption. Arthritis 12/10/2017 Assessment & Plan (12/11/2017 3:30 PM EDT): Resume Celebrex Non-intractable vomiting with nausea 12/06/2017 Assessment & Plan (07/14/2023 4:33 PM EDT): chronic issue that has been evaluated extensivly by multiple subspecialists both locally and in [place]. Ultimately 1 to 2 years ago patient stopped trying to fix the problem and has learned to live with it or manage her symptoms. increase in her nausea and vomiting x4 to 5 days with poor p.o. intake although vomiting has resolved for the most part Clear liquids, advance as tolerated, pain control, anti-emetics, monitor qtc, last is 486 Record all ins and outs strictly including oral intake, emesis Consider GI. Assessment & Plan (05/17/2020 7:07 PM EDT): - chronic nausea/early satiety, needs GI at [facility] follow up appreciate Dr. Jeronimo's recommendations - today concern that constipation is contributing trying miralax - cont full liquid diet Assessment & Plan (12/11/2017 3:29 PM EDT): Initially suspected from adrenal insufficiency but cortisol was normal. Symptoms seem controlled with IV fluids and antiemetics. No further episodes, able to tolerate some PO. Possibly from gastric sleeve complication. Patient does have diabetes, cannot r/o gastroparesis. Upper GI series showed intermittent spasm and ?edema or mild stricturing at the GE junction. Per Dr. Epperson, recommended GI consultation for upper endo. Therefore GI was consulted and recommended an upper endoscopy for further evaluation on Monday. No further episode of nausea or vomiting. Unclear if reglan was helping. No evidence of QTC prolongation. Discussed with patient will switch to prn dosing to determine if there was any change. - Status post EGD this morning and dilatation, EGD noted reflux esophagitis that was mild and candidal esophagitis -Continue PPI start fluconazole Acute kidney injury superimposed on chronic kidn ey disease 12/06/2017 Assessment & Plan (07/14/2023 4:32 PM EDT): Baseline cr 1.0, cr has improved to 1.9 from 2.3, prerenal based on labs Continue IVF Dr. Nelson just retired, she is going to be seeing dr miller, consider consult if no further improvement tomorrow We will hold her Celebrex, renally dose other meds Assessment & Plan (12/11/2017 3:31 PM EDT): Resolved Hypothyroidism 12/06/2017 Assessment & Plan (09/09/2020 4:44 PM EST): Continue levothyroxine as prescribed, TSH appropriate Assessment & Plan (02/24/2020 10:49 PM EDT): TSH elevated, but normal free T4. This could be a subclinical hypothyroidism or could be a euthyroid sick syndrome. This could be followed as an outpatient with adjustments of her Synthroid completed at follow-up. Assessment & Plan (12/11/2017 3:30 PM EDT): Synthroid dose was decreased 2 weeks ago. -Continue thyroid replacement Essential hypertension Assessment & Plan (09/16/2023 12:32 PM EST): -BP controlled Off norvasc and carvedilol May need restarting of BP meds after she recovers from DESMOND. Assessment & Plan (09/08/2020 6:13 PM EST): Blood pressure is controlled. Continue amlodipine as prescribed. There is some concern the patient may have experienced an ischemic hepatitis. If the patient's blood pressures run low, consider discontinuing or lowering the dose of the amlodipine. Renal function is stable. Assessment & Plan (05/17/2020 7:10 PM EDT): - cont lisinopril 10 - increased amlodipine -blood pressures better today, hold off on further increase Hyperlipidemia Assessment & Plan (09/08/2020 6:14 PM EST): Hold statin with transaminitis. Total cholesterol is low at 117 and LDL is 47. I think it is reasonable to discontinue the statin on discharge and monitor her lipid panel DM2 (diabetes mellitus, type 2) Overview (02/24/2020): Complicated by nephropathy and retinopathy Assessment & Plan (09/13/2023 2:34 PM EST): -Currently not on any medications, h/o sleeve gastrectomy 2016 -cont insulin sliding scale as needed -HbA1c 6.2 prediabetic Assessment & Plan (07/14/2023 4:29 PM EDT): No longer on medications a1c 6.5 ISS if needed. Assessment & Plan (09/09/2020 4:40 PM EST): Holdign Metformin Monitor [id number] with insulin sliding scale coverage, institute basal- bolus insulin protocol depending on trend of POC's and oral intake. Hemoglobin A1c in prediabetic range at 6.0%. Assessment & Plan (05/17/2020 7:06 PM EDT): She is chronically on metformin. -cont holding metformin - blood sugars acceptable for now, cont insulin sliding scale Assessment & Plan (02/24/2020 10:45 PM EDT): We will hold metformin in the setting of acute kidney injury. We will give basal bolus insulin therapy. Depression with anxiety Assessment & Plan (09/08/2020 6:13 PM EST): Mood is somewhat depressed, she appears stable. No SI. Continue fluoxetine as prescribed. Continue to hold trazodone Chronic kidney disease, stage III (moderate) Overview (02/24/2020): Baseline GFR 59 mg/dL Assessment & Plan (09/15/2023 5:15 PM EST): - acute kidney injury after diuresis See section on heart failure Assessment & Plan (09/09/2020 4:45 PM EST): Creatinine stable Trend BMP Resolved Problems Problem Noted Date Diagnosed Date Resolved Date Acute kidney injury 02/24/2020 02/26/20 20 Assessment & Plan (02/25/2020 5:54 PM EDT): Prerenal azotemia secondary to poor oral intake from intractable nausea and vomiting. With IV fluids, creatinine has improved from 2.2 yesterday to 1.5 this afternoon. Tinea with IV fluids for another we will avoid 6 hours and then off. Tomorrow, advance diet as tolerated, oral hydration Avoid nephrotoxic medications Intractable nausea and vomiting 02/24/2020 02/26/2020 Assessment & Plan (02/25/2020 6:15 PM EDT): This has reportedly been a recurrent issue since sleeve gastrectomy surgery July 2017. This problem is quite chronic for the patient, having been present for at least 2 years. It seems possibly multifactorial in the setting of known surgical and anatomical abnormality with a gastric sleeve, contribution of cannabis hyperemesis syndrome, versus viral gastroenteritis. Patient was able to tolerate breakfast, lunch and dinner today, IV fluids were discontinued. She is unable to tolerate a diet, plan for discharge likely tomorrow with outpatient follow-up. Hyperkalemia 09/09/2019 02/25/2020 Assessment & Plan (02/24/2020 10:44 PM EDT): Mild hyperkalemia. We will monitor her on remote telemetry. Constipation 12/10/2017 02/26/2020 Assessment & Plan (02/25/2020 6:17 PM EDT): Has not had a bowel movement in 2 to 3 days, continue Colace and MiraLAX, Fleet enema as needed to assist patient having a bowel movement Assessment & Plan (12/11/2017 3:30 PM EDT): Bowel regimen Dehydration 12/06/2017 12/08/2017 Assessment & Plan (12/07/2017 5:57 PM EDT): Likely due to a combination of vomiting and diarrhea as well as hyperglycemia. Encourage PO. Nutrient consulted. Resolved. Adrenal gland injury 12/06/2017 018 Assessment & Plan (12/11/2017 3:31 PM EDT): The prior CT scan suggests bilateral adrenal inflammation and or early hemorrhage. Although cortisol level was normal, rule against adrenal insuffiencey. No clear evidence of infectious etiology. Echo without clear vegetation, Bood cultures negative. Per Endocrine, no intervention is needed at this time. May follow up with endocrine as outpatient for follow up. Would suggest repeat imaging in a few months for further re-evaluation. Type [address] elevation 12/06/2017 12/09/2017 Assessment & Plan (12/11/2017 3:31 PM EDT): Type II NSTEMI. Nuclear stress was negative . Started on asa and statin. No further workup at this time. Encounters Date Type Department Care Team Description 07/11/2025 9:16 PM EDT - 07/12/2025 4:10 AM EDT Emergency [facility] [address] [place] [address] Discharge Disposition: Another Health Care Institution Not Defined 07/11/2025 Procedure [facility], [address] [address] 07/11/[address] [address] 06/17/2025 2:49 PM EDT - 06/17/2025 11:59 PM EDT Hospital Encounter [facility] [address] [place] [address] Sampson Villa MD Discharge Disposition: Home or Self Care 04/14/2025 1:40 PM EDT - 04/14/2025 11:59 PM EDT Hospital Encounter [facility] [address] [place] [address] Marvin Miller MD Discharge Disposition: Home or Self Care 04/14/2025 12:37 PM EDT - 04/14/2025 1:39 PM EDT Hospital Encounter [facility] [address] [place] [address] Sampson Villa MD Discharge Disposition: Home or Self Care 04/14/2025 12:18 PM EDT - 04/14/2025 12:36 PM EDT Hospital Encounter [facility] [address] [place] [address] Sampson Villa MD Discharge Disposition: Home or Self Care 04/14/2025 Transcribe Orders [facility] [address] [place] [address] Sampson Villa MD Dyspnea, unspecified type (Primary Dx); Bronchiolitis from Last 3 Months Immunizations Immunization Administration Dates Next Due COVID-19 (Pre-07/03) Moderna Vaccine, mRNA, PF 11/29/2020 INFLUENZA, SPLIT VIRUS, TRIVALENT PF 08/06/2013, 06/11/2012 INFLUENZA, SPLIT VIRUS, TRIV ALENT W/ PRESERVATIVE IM 07/01/2017,07/22/2011,07/01/2010,08/18 Influenza High-Dose Quadriva lent Preservative Free IM 07/15/2023,06/22/2022,06/17/2020 Influenza High-Dose Trivalen t Preservative Free IM 07/29/2019,07/17/2019,06/22/2018,09/11,08/23/2017,07/28/2016 Influenza Quadrivalent Adjuv anted Preservative Free IM 06/14/2021 Influenza Quadrivalent Prese rvative Free IM 07/31/2015,09/09/2014 Influenza, Unspecified Formulation 06/17,07/01/2017,07/18/2008,07/25,07/28/2006,06/15/2004,07/31/2003 ,07/22/2002,08/22/2001,09/29/2000 Pneumococcal conjugate PCV13 06/10/2020, 02/25/2020(Deferred: Contraindication),03/17/2015 Pneumococcal polysaccharide PPSV23 01/12/2018, Td (adult),2 Lf Tetanus Toxo id, PF, Adsorbed 04/02/2019 Td, unspecified formulation 01/12/2019 Tdap 11/25/2008 Zoster recombinant 01/27/2021,06/10/2020, 020 Family History Medical History Relation Comments Alcohol abuse Father Diabetes Father Hypertension Father Asthma Mother Dementia Mother Hypertension Mother Heart disease Paternal Grandfather Heart disease Paternal Grandmother Diabetes Sister 1 Myasthenia gravis Sister 2 Relation Status Comments Father Mother Alive Paternal Grandfather Paternal Grandmother Sister 1 Alive Sister 2 Alive Social History Tobacco Use Types Packs/Day Years Used Date Smoking Tobacco: Never Smokeless Tobacco: Never Tobacco Cessation:Counseling Given: Not Answered Comments: Alcohol Use Standard Drinks/Week Comments Yes [...] Orientation Bisexual 12/31/2017 8: 50 PM EDT Last Filed Vital Signs Vital Sign Reading Time Taken Comments Blood Pressure 140/88 07/12/2025 3:45 AM EDT Pulse 106 07/11/2025 9:57 PM EDT Temperature 36.9 C (98.5 F) 07/11/2025 9:49 PM EDT Respiratory Rate 18 07/11/2025 9:49 PM EDT Oxygen Saturation 97% 07/12/2025 3:45 AM EDT Inhaled Oxygen Concentration - - Weight 59 kg (130 lb) 01/22/2025 8:44 PM EDT Height 157.5 cm (5' 2 ) 01/22/2025 8:44 PM EDT Body Mass Index 23.78 01/22/2025 8:44 PM EDT Plan of Treatment Upcoming Encounters Date Type Department Care Team (Late st Contact Info) Description 08/22/2025 11:00 AM EST Office Visit [facility] All[facility] [address] [place] [id number] Sampson Villa MD [address] [place] [address] 11/03/2025 1:40 PM EST Office Visit [facility] [address] [place] [address] 3rd Floor, [address] [place] [address] Enrike Beltrán MD 22 [facility], [address] [address] [email or web address] Health Maintenance Due Date Last Done Comments DEPRESSION SCREENING 1963 MAMMOGRAM 1991 COLOGUARD 1996 FOBT 1996 SIGMOIDOSCOPY 1996 VIRTUAL COLONOSCOPY 1996 OSTEOPOROSIS SCREENING INITIAL (ONE-TIME) 2016 DIABETIC EYE EXAM 09/27/2017 FIT TEST 05/09/2021 05/09/2020 INFLUENZA VACCINE (#1) 2025 , 08/08/2023, 07/15/2023, Additional history exists COVID-19 VACCINE ( season) 2025 08/22/2024, 07/28/2023, 07/28/2023, Additional history exists BLOOD PRESSURE 06/25/2025 12/24/2024 HEMOGLOBIN A1C 10/09/2025 04/08/2025, 11/2023, 07/14/2023, Additional history exists TSH LEVEL 12/24/2025 12/24/2024, 12/2022, 09/08/2020, Additional history exists Adult Td,Tdap Booster 04/02/2029 04/02/2019 , 01/12/2019, 11/25/2008 COLONOSCOPY 07/03/2034 07/03/2024 COLORECTAL CANCER SCREENING 07/03/2034 PNEUMOCOCCAL VACCINES (50+ years) Completed 06/10/2020, 01/12/2018, 03/17/2015, Additional history exists HEPATITIS C SCREENING Completed 09/07/2020 ZOSTER VACCINES Completed 01/27/2021, 05/14, 06/10/2020 RSV VACCINE Completed 09/28/2023 SMOKING STATUS SCREENING (Once After 26 Yrs) Completed 12/24/2024 HEPATITIS A VACCINES Aged Out No long er eligible based on patient's age to complete this topic HIB VACCINES Aged Out No longer eligi ble based on patient's age to complete this topic MENINGOCOCCAL VACCINES (ACWY) Aged Out No longer eligible based on patient's age to complete this topic MENINGOCOCCAL VACCINES (B) Aged Out N o longer eligible based on patient's age to complete this topic Medical Devices Implanted Type Area Manufacturing Engineer Machining Device Identifier Shelf Expiration Date Model / Serial / Lot Hardware Bilateral: Shoulder Hardware Back Clip Hemostasis 360deg 235cm Resolution 360 Latex Free 2.8mm Channel Bx/20ea - [id number] Implanted:Qty: 1 on 03/23/2021 by Laisha Jeronimo MD at [facility] N/A: Stomach [employer] BRANNON [id number] 12/24/2023 [id number] / / [id number] Description:Clipped at Gastr ic body @ 50 cm for radiologic marking Procedures Procedure Name Priority Date/Time Associated Diagnosis Comments Hold Specimen In Blood Bank (No Testing Performed) STAT 07/11/2025 11:11 PM EDT MAGNESIUM STAT 07/11/2025 11:11 PM EDT BASIC METABOLIC PANEL STAT 07/11/2025 11:11 PM EDT CBC AND DIFFERENTIAL STAT 07/11/2025 11:11 PM EDT XR CHEST 1 VIEW Routine 07/11/2025 11:04 PM EDT XR HIP 2-3 VW LEFT Routine 07/11/2025 11 :[address] CERVICAL SPINE WITHOUT CONTRAST Routine 07/11/2025 9:[address] HEAD WITHOUT CONTRAST Routine 07/11/2025 9:53 PM EDT PULMONARY FUNCTION TEST Routine 06/17/2025 3:36 PM EDT Dyspnea, unspecified type Bronchiolitis URINALYSIS Routine 04/14/2025 1:56 PM EDT Stage 3a chronic kidney disease TOTAL PROTEIN CREATININE RATIO, RANDOM URINE Routine 04/14/2025 1:56 PM EDT Stage 3a chronic kidney disease ARTERIAL BLOOD GAS Routine 04/14/2025 12 :53 PM EDT PULMONARY FUNCTION TEST Routine 04/14/2025 12:30 PM EDT Dyspnea, unspecified type Bronchiolitis HEMOGLOBIN A1C Routine 04/08/2025 3:17 PM EDT Stage 3a chronic kidney disease TSH WITH REFLEX Routine 12/24/2024 2:57 PM EDT Dyspnea, unspecified type Bronchiolitis ENDOSCOPY, COLON 07/03/2024 7:46 AM EDT HEPATITIS C ANTIBODY, QUALITATIVE STAT 09/07/2020 5:42 PM EST HC BLOOD OCCULT FECAL HGB DETER IA QUAL FECES 1-3 Routine 05/09/2020 11:00 AM EDT Anemia, unspecified type from Last 3 Months or Most Recently Relevant to Health Maintenance Results * Hold Specimen In Blood Bank (07/11/2025 11:11 PM EDT) Expiration Date of Sample 07/14/2025 ,2359 [facility] Resulting Agency [facility] Blood 07/11/2025 11:1 1 PM EDT 07/11/2025 11:14 PM EDT us Sherita Mckenzie PA-C BLOOD BANK TEST ORDERABLES Final Result [facility] [address] [place] [address] * (ABNORMAL) CBC and differential (07/11/2025 11:11 PM EDT) WBC 18.17(H) 4.00 - 11.00 K/uL [facility] RBC 3.85(L) 4.00 - 5.20 M/uL [facility] HGB 11.8(L) 12.0 - 16.0 g/dL [facility] HCT 35.8(L) 36.0 - 46.0 % [facility] PLT 291 150 - 450 K/uL [facility] MCV 93.0 80.0 - 100.0 fL [facility] MCH 30.6 27.0 - 31.0 pg [facility] MCHC 33.0 32.0 - 36.0 g/dL [facility] RDW 13.6 11.5 - 14.5 % [facility] MPV 9.5 8.4 - 12.0 fL [facility] NRBC 0.00 0.00 /100 WBCs [facility] ABSOLUTE NRBC 0.00 0.00 K/uL [facility] DIFF METHOD Auto [facility] NEUTS 84.5(H) 48.0 - 76.0 % [facility] LYMPHS 4.2(L) 18.0 - 41.0 % [facility] MONOS 3.4(L) 4.0 - 11.0 % [facility] EOS 7.1(H) 0.0 - 5.0 % [facility] BASOS 0.2 0.0 - 1.5 % [facility] Granulocytes, immature (%) 0.6 0.0 - 0.9 % [facility] ABSOLUTE NEUTS 15.35(H) 1.92 - 7.60 K/uL [facility] ABSOLUTE LYMPHS 0.77 0.72 - 4.10 K/uL [facility] ABSOLUTE MONOS 0.62 0.16 - 1.10 K/uL [facility] ABSOLUTE EOS 1.29(H) 0.00 - 0.50 K/uL [facility] ABSOLUTE BASOS 0.03 0.00 - 0.15 K/uL [facility] Granulocytes, immature 0.11(H) 0.00 - 0.09 K/uL [facility] Blood 07/11/2025 11:1 1 PM EDT 07/11/2025 11:14 PM EDT Sherita Mckenzie PA-C LAB BLOOD ORDERA BLES Edited Result - Final [address] [id number] * Magnesium (07/11/2025 11:11 PM EDT) MAGNESIUM 1.7 1.6 - 2.6 mg/dL [facility] Blood 07/11/2025 11:1 1 PM EDT 07/11/2025 11:14 PM EDT us Sherita Mckenzie PA-C LAB BLOOD ORDERA BLES Final Result [address] [address] * (ABNORMAL) Basic metabolic panel (07/11/2025 11:11 PM EDT) SODIUM 141 133 - 146 mmol/L [facility] CHLORIDE 99 96 - 108 mmol/L [facility] POTASSIUM 3.4 3.3 - 5.1 mmol/L [facility] CO2 29 21 - 35 mmol/L [facility] BUN 22(H) 6 - 19 mg/dL [facility] CREATININE 1.30 0.5 - 1.5 mg/dL [facility] GLUCOSE 146(H) 70 - 99 mg/dL [facility] CALCIUM 9.6 8.4 - 10.3 mg/dL [facility] EGFR 43(L) >59 mL/min/1.7 3m2 [facility] Comment:Estimated glomerular filtration rate calculated using the CKD-EPI refit equation. ANION GAP 16 10 - 20 mmol/L [facility] Blood 07/11/2025 11:1 1 PM EDT 07/11/2025 11:14 PM EDT us Sherita Mckenzie PA-C LAB BLOOD ORDERA BLES Final Result Performing Organization Address City/State/[facility] Co de Phone Number [address] [address] * XR CHEST 1 VIEW (07/11/2025 11:04 PM EDT) Anatomical Region Laterality Modality Chest Computed Radiogr aphy 07/12/2025 1:39 AM EDT Impressions 07/12/2025 1:41 AM EDT Similar platelike scarring versus atelectasis in the right mid lung zone. No new consolidation. Narrative 07/12/2025 1:41 AM EDT XR CHEST 1 VIEW Referring clinician's provided indication for this examination in Epic: Pre-Op COMPARISON: XR CHEST PORTABLE FINDINGS: Devices/Tubes/Lines: [...] clinician's provided indication for this examination in [facility]:Pre-Op COMPARISON: XR CHEST PORTABLE FINDINGS: Devices/Tubes/Lines: [...] clinician's provided indication for this examination in [facility]: Pain; S/P Fall COMPARISON: CT ABDOMEN/PELVIS [...] clinician's provided indication for this examination in [facility]:Pain; S/P Fall COMPARISON: CT ABDOMEN/PELVIS WITH CONTRAST 2025-May-15 FINDINGS: Pelvis: Degenerative changes are present in [...] of the cervical spine. Amy Villagomez PA-C [facility] XSPECIALTY ORDERABLE S Final Result * [...] clinician's provided indication for this examination in [facility]: * Head trauma, minor (Age >= [...] clinician's provided indication for this examination in [facility]: *Head trauma, minor (Age >= 65y) [...] PA-C IMG CT HEAD/NECK Final Resu lt * Pulmonary Function Test Reason for Exam: Dyspnea/Shortness of Breath; Type of PFT Test: Spirometry with bronchodilator, Lung Volumes, DLCO; Performing Location: [facility] (06/17/2025 3:36 PM EDT) [facility] FEV1 1.25 liters FVC 2.15 liters FEV1/FVC 58 % TLC 4.49 liters DLCO 7.85 ml/mmHg sec Anatomical Region Laterality Modality Other Impressions 06/17/2025 3:36 PM EDT PULMONARY FUNCTION STUDIES Full pulmonary function studies were performed on this 75 y.o. year-old female for evaluation of dyspnea and bronchiolitis. Review of the medical record reveals that the patient is a marijuana smoker. Prior pulmonary function studies from 12/28/2023 are available for comparison. SPIROMETRY: The FEV1 is mildly impaired (z-score between -1.65 and -2.5) at 1.25 L or 66% predicted. The FVC is normal at 2.15 L or 88% predicted. The FEV1/FVC ratio is impaired (<5th percentile) at 58%. After the administration of a bronchodilator agent, there is no technically significant change. FLOW-VOLUME LOOPS: Evaluation of the flow-volume loops reveals normal morphology of the inspiratory limb with scooping of the expiratory limb in keeping with the patient's obstructive lung disease. LUNG VOLUME MEASUREMENTS BY PLETHYSMOGRAPHY: The total lung capacity is normal at 4.49 L or 98% predicted. The RV/TLC ratio is normal at 52%. DIFFUSION CAPACITY: The diffusion capacity is severely impaired (z-score <-4.1) at 7.9 mL/mmHg sec or 44% predicted. COMPARISON TO PRIOR STUDIES: When comparing to prior studies, there has been no significant change. Resting oxygen saturation is 96% on room air. IMPRESSION: Abnormal pulmonary function studies as evidenced by mild fixed airflow limitation, normal lung volumes and a severe impairment in diffusion capacity which, in this clinical context, may be secondary to emphysema, pulmonary vascular disease, interstitial lung disease and/or anemia. Technical Note: As of 07/23/2024, the [facility] Pulmonary Function Testing (PFT) Laboratory transitioned from using race-specific to using race-neutral equations for determining lung function predicted values for all persons. Due to this change some individuals previously classified as either normal or abnormal may now change from one to the other category without a true change in lung function. Such changes, as well as changes in severity classification, should be considered broadly and in their clinical context. Absolute values of lung function are unaffected. For further questions please contact the interpreting physician or PFT senior laboratory technician. For further discussion of this issue please see Tanja blair al [facility] 2022;[phone]. Please Note: Not all PFT labs within, or outside of, our system will be transitioning to new reference equations at the same time. For this reason, please pay close attention to absolute values when comparing results done at different testing locations within or outside of our system. us Sampson Villa MD PFT ORDERABLES Final Result * (ABNORMAL) TOTAL PROTEIN CREATININE RATIO, RANDOM URINE (04/14/2025 1:56 PM EDT) [facility] URINE TOTAL PROTEIN 29.0 mg/dL [facility] URINE CREATININE 142 mg/dL [facility] URINE TP CRE RATIO 0.20(H) 0 - 0.19 [facility] Urine (Urine) 04/14/2025 1:5 6 PM EDT 04/14/2025 2:25 PM EDT us Marvin Miller MD URINE ORDERABLES Final Result [facility] [address] [place] [address] * (ABNORMAL) Urinalysis (04/14/2025 1:56 PM EDT) Pathologist [facility] COLOR Yellow Yellow [facility] CLARITY Clear [facility] GLUCOSE Negative Negative [facility] BILI 1+(A) Negative [facility] Comment:Corrected on 04/14 A T 1615: previously reported as Negative KETONES Negative Negative [facility] SPECIFIC GRAVITY 1.025 1.005 - 1.030 [facility] BLOOD Negative Negative [facility] PH 6.0 5.0 - 8.0 [facility] Comment:Corrected on 04/14 A T 1615: previously reported as 5.5 Protein-UA Negative Negative [facility] Comment:Corrected on 04/14 A T 1615: previously reported as Trace NITRITE Negative Negative [facility] Leukocyte esterase, ur Negative Negative [facility] Urine (Urine) 04/14/2025 1:5 6 PM EDT 04/14/2025 2:26 PM EDT us Marvin Miller MD URINE ORDERABLES Edited Result - Final Performing Organization Address City/State/[facility] Co de Phone Number [address] [address] * (ABNORMAL) Arterial blood gas (04/14/2025 12:53 PM EDT) pH, Arterial 7.45 7.35 - 7.45 [facility] PCO2, Arterial 38.50 35.00 - 45.00 mmHg [facility] PO2, Arterial 58.90(LL) 80.00 - 105.00 mmHg [facility] Comment: Critical value: Results called to and read back by: Ely H HCO3, unspecified 26 22 - 26 mmol/L [facility] BASE EXCESS ARTERIAL 2.5 0.0 - 3.0 mmol/L [facility] SO2, unspecified 90.50(L) 95.00 - 98.00 % [facility] FO2HB BLOOD GAS 89.20(L) 94.00 - 100.00 % [facility] Carboxy Hgb 1.10 0 - 1.50 % [facility] MetHgb % 0.30 0 - 1.50 % [facility] Ezra's Test Positive [facility] ABG site Right brachial [facility] FIO2 21 percent FIO2/L min [facility] OXYGEN LITERS/MIN Not Applicable [facility] Blood 04/14/2025 12:5 3 PM EDT 04/14/2025 12:59 PM EDT us Sampson Villa MD LAB BLOOD ORDERABLES Final R esult Performing Organization Address [facility] Co de Phone Number [address] [address] * Pulmonary Function Test Reason for Exam: COPD; Type of PFT Test: Spirometry with bronchodilator, DLCO, Lung Volumes; Performing Location: [facility] (04/14/2025 12:30 PM EDT) FEV1 FVC FEV1/FVC TLC DLCO Anatomical Region Laterality Modality Other Narrative 04/14/2025 12:30 PM EDT Ely Khan, CHOIR DIRECTOR 04/14/2025 2:45 PM Patient was not able to complete all testing ordered due to she did not realize how long it would all take, her ride couldn't pick her up any later. She has been r/s for pft. Sampson Villa MD PFT ORDERABLES Edited Resul t - Final * (ABNORMAL) Hemoglobin A1c (04/08/2025 3:17 PM EDT) HEMOGLOBIN A1C 6.6(H) 4.3 - 5.8 % [facility] Blood 04/08/2025 3:17 PM EDT 04/08/2025 3:39 PM EDT us Marvin Miller MD LAB BLOOD ORDERABLES Final Resul t Performing Organization Address [facility]/ZIP Co de Phone Number [address] [address] * TSH with reflex (12/24/2024 2:57 PM EDT) TSH 2.31 0.27 - 4.20 uIU/mL [facility] Blood 12/24/2024 2:57 PM EDT 12/24/2024 3:00 PM EDT Sampson Villa MD LAB BLOOD ORDERABLES Final R esult [facility] [address] [place] [address] * ENDOSCOPY, COLON (07/03/2024 7:46 AM EDT) Narrative Transcriptions Laisha Jeronimo MD - 07/03/2024 7:46 AM EDT [facility] Patient Name: Briseida Gonsalvescaroline Attending MD:: LAISHA JERONIMO MD, Procedure Date: 07/03/2024 7:46 AM Date of : 1950 Age: 74 Admit Type: Outpatient Gender: Female Room: [place] [address] Referring MD: Jailene Jackson Exam Type: Colonoscopy Indications: Iron deficiency anemia Medications: Monitored Anesthesia Care Procedure: Informed consent was obtained from the patientafter discussion of the indications, limitations, alternatives, benefits, and risks of the procedure. Risks specifically discussed include but are not limited to medication reactions, missed lesions, bleeding, perforation, or the need for emergent surgery. Throughout the procedure, the patient's blood pressure, pulse, end-tidal CO2, and oxygensaturations were monitored continuously. The Colonoscope was introduced through the anus and advanced to the terminal ileum, with identificationof the appendiceal orifice and IC valve. Thecolonoscopy was performed without difficulty. The patient tolerated the procedure well. The quality of thebowel preparation was good. The terminal ileum, ileocecal valve, appendiceal orifice, and rectum were photographed. Complications: No immediate complications. Estimated blood loss:None. Findings: The terminal ileum appeared normal. Examination of the right colon was repeated in retroflexion and again in NBI. Retroflexion wasalso performed in the rectum. Multiple diverticula were found in the entirecolon. External hemorrhoids were found during retroflexion and during digital exam. The hemorrhoids werelarge. The exam was otherwise without abnormality. Impression: - The examined portion of the ileum was normal. - Diverticulosis in the entire examined colon. - External hemorrhoids. - The examination was otherwise normal. - No specimens collected. Recommendation: - Patient has a contact number available for emergencies. The signs and symptoms of potential delayed complications were discussed with thepatient. Return to normal activities tomorrow. Written discharge instructions were provided to thepatient. - Repeat colonoscopy in 10 years for screening purposes. - Return to GI office as previously scheduled. Laisha Jeronimo LAISHA JERONIMO MD 07/03/2024 8:45:20 AM This report has been signed electronically. Number of Addenda: 0 Note Initiated On: 07/03/2024 7:46 AM Procedure Code(s): --- Professional --- 59719, Colonoscopy, flexible; diagnostic, including collection of specimen(s) by brushing or washing, when performed (separateprocedure) --- Technical --- 74930, Colonoscopy, flexible; diagnostic, including collection of specimen(s) by brushing or washing, when performed (separateprocedure) CPT copyright 2021 [employer] [place] [employer]. All rights reserved. The codes documented in this report are preliminary and upon senior sql server dba reviewmay be revised to meet current compliance requirements. Procedure Date: 07/03/2024 7:46:[address] [place] [id number] us Jailene Wolf Jackson DO GI PROCEDURE ORDERABLES Vilma l Result * Hepatitis C antibody, qualitative (09/07/2020 5:42 PM EST) HCV NON-REACTIV E NON-REACTI VE [facility] Blood 09/07/2020 5:42 PM EST 09/07/2020 5:57 PM EST us Moshe Vivar MD LAB BLOOD ORDERABLES Final Resul t Performing Organization Address [facility]/ZIP Co de Phone Number [address] [address] * Fecal immunochemical test x1 (FIT) (05/09/2020 11:00 AM EDT) Pathologist [facility] Immuno Fecal Occult Negative [facility] Stool (Stool) 05/09/2020 11: 00 AM EDT 05/09/2020 11:48 AM EDT us Tere Hernandez PA-C BODY FLUIDS AND STOOLS ORD ERABLES Final Result Performing Organization Address [facility] Co de Phone Number [address] [address] from Last 3 Months or Most Recently Relevant to Health Maintenance Insurance [place] [id number] [facility] MEDEX SUPPLEMENT [facility] MEDICARE PART A & B [employer] MEDEX SUPPLEMENT [facility] MEDICARE PART A & B [employer] MEDEX SUPPLEMENT MEDICARE PART A & B [employer] MED[employer] SUPPLEMENT MEDICARE PART A & B [employer] MEDEX [place]PPLE[place] [address] [place] [address] MEDICARE PART A & B [employer] SUPPLEMENT MEDICARE PART A & B [employer] SUPPLEMENT [facility] MEDICARE PART A & B [employer] CROSS MEDEX SUPPLEMENT [facility] MEDICARE PART A & B [employer] MEDEX SUPPLEMENT [facility] Advance Directives For more information, please contact: [phone] (9AM - 5PM Jackie/[facility], Monday-Monday) * Full Code (Latest Code Status on File) Date Activated Date Inactivated Comments 09/12/2023 7:25 PM Question Answer Comments Code Status Confirmed With: Patient * Full Code Date Activated Date Inactivated Comments 07/14/2023 6:58 AM 09/12/2023 7:25 PM Question Answer Comments Code Status Confirmed With: Patient * Full Code Date Activated Date Inactivated Comments 09/07/2020 10:51 PM 07/14/2023 6:58 AM Question Answer Comments Code Status Confirmed With: Patient * Full Code Date Activated Date Inactivated Comments 05/16/2020 1:10 AM 09/07/2020 10:51 PM Question Answer Comments Code Status Confirmed With: Patient * Full Code (Confirmed) Date Activated Date Inactivated Comments 02/24/2020 11:28 PM 05/16/2020 1:10 AM Question Answer Comments Code Status Confirmed With: Patient Care Teams General Studies Program Chair Relationship Specialty Start Date End Date Jailene Jackson DO [address] [place] [id number] PCP - General Family Medicine 07/13/23 Ravi Barker MD Endocrinology 12/06/17 Cecilia Epperson MD [address] [place] [address] [place] [address] General Surgery 12/06/17 Tere Hernandez PA-C [address] [place] [id number] Physician Media Arts Professor Hematology 07/13/20 Additional Source Comments The information contained in this document represents components of the legal health record. It is not the complete legal health record.[facility]
--- OUTSIDE RECORDS SUMMARY | 2025-07-12 05:33 | XMS_ITS | Encounter Summary ---
Author Organization [facility] Address [address] [place] [address] Phone Care Team Providers Care Superintendent Tests Name Role Phone Ravi Barker MD Unavailable Cecilia Epperson MD Unavailable [phone] Tere Hernandez PA-C Unavailable [phone] Jailene Jackson DO Primary Care Provider Encounter Details Date Type Department Care Team (Late st Contact Info) Description 07/11/2025 Procedure [facility], Ct Scan - [address] [address] Social History Tobacco Use Types Packs/Day Years [...] 9:42 PM EDT Napoleon Cole RN * [place] Suicide Severity Rating Scale (Screener/Recent Self-Report) Question [...] Pulmonary, Allergy and Critical Care Medicine [address] [address] Sampson Villa MD [address] [place] [address] 11/03/2025 1:40 PM EST Office Visit [facility] [address] [place] [address] 3rd Floor, [address] [place] [address] Enrike Beltrán MD [address] [place] [id number] [email or web address] documented as of this encounter Visit Diagnoses Not on filedocumented in this encounter Care Teams Superintendent Tests Relationship Specialty Start Date End Date Jailene Jackson DO [address] [place] [address] PCP - General Family Medicine 07/13/23 Ravi Barker MD Endocrinology 12/06/17 Cecilia Epperson MD [address] [place] [address] [place] [address] General Surgery 12/06/17 Teer Hernandez PA-C [address] [place] [address] Physician [employer] Hematology 07/13/20 documented as of this encounter Additional Source Comments The information contained in this document represents components of the legal health record. It is not the complete legal health record.[facility]
--- NOTE | 2025-07-12 05:36 | ED_ITS ---
HPI - Trauma General Chief Complaint: Trauma Stated Complaint: FALL COMING FROM [facility] Source: patient and EMS Mode of arrival: EMS Limitations: no limitations History of Present Illness ED Provider: Dr. Yasmine Juarez HPI narrative: Patient comes to the emergency room from [facility] emergency department. I accepted the transfer, ED to ED. Patient is known to have COPD, uses oxygen at home, patient tripped and fell on the left side of her body. Patient denies hitting her head or losing consciousness, patient denies being on blood thinners. At [facility], lab work was done, x-ray showed a left intertrochanteric fracture of the hip. They do have Orthopedics at this time, but their orthepiedics surgeon does not operate on hips. Patient accepted the transfer to [facility] in agreeable to have surgery Related Data Allergies Allergy/AdvReac Type Severity Reaction Status Date / Time liraglutide (From Victoza) Allergy Rash Verified 07/12/25 05:06 Sulfa (Sulfonamide Allergy Rash Verified 07/12/25 05:06 Antibiotics) erythromycin base AdvReac Gastrointestinal Verified 07/12/25 05:06 Upset Review of Systems 2 Review of Systems: Constitutional : No Weight loss, No Fever, No Chills, No Night Sweats, No Fatigue, No Malaise ENT/Mouth : No Hearing loss, No Ear Pain, No Nasal Congestion, No Sinus Pain, No Hoarseness, No sore throat, No Rhinorrhea, No Swallowing Difficulty Eyes: No Eye Pain, No Swelling, No Redness, No Foreign Body, No Discharge, No Vision Changes Cardiovascular : No Chest Pain, No SOB, No Dyspnea on Exertion, No Orthopnea, No Edema, No Palpitations Respiratory : No Cough, No Sputum, No Wheezing, No Smoke Exposure, No Dyspnea Gastrointestinal : No Nausea, No Vomiting, No Diarrhea, No Constipation, No abdominal Pain, No Hematochezia, No Melena Genitourinary : no irregular bleeding, No Dysuria, No Urinary Frequency, No Hematuria, No Urinary Incontinence, No Urgency, No Flank Pain, No Urinary Flow Changes, No Hesitancy Musculoskeletal : Complaining of leg pain on the left/hip pain No Myalgias, No Joint Swelling Skin : No Skin Lesions, No rash Neuro : No Weakness, No Numbness, No Paresthesias, No Loss of Consciousness, No Dizziness, No Headache Psych : No Anxiety/Panic, No Depression, No SI/HI/AH/VH, No Social Issues, Heme/Lymph: No Bruising, No Bleeding,No Lymphadenopathy Endocrine : No Polyuria, No Polydipsia, No Temperature Intolerance [facility] Past Medical History Medical History (Updated 07/12/25 @ 06:17 by Yasmine Juarez MD) Diabetic neuropathy Hypothyroidism Ileus Hearing loss [place] NAFLD (nonalcoholic fatty liver disease) Fibromyalgia Diverticulitis CKD (chronic kidney disease) stage 3, GFR 30-59 ml/min COPD (chronic obstructive pulmonary disease) Anemia Wrist fracture HFrEF (heart failure with reduced ejection fraction) Aortic stenosis Glaucoma GERD (gastroesophageal reflux disease) Depression with anxiety Hyperlipidemia Hypertension Surgical History (Updated 07/12/25 @ 06:07 by DIDI Shipman) Gastric bypass status for obesity History of total right knee replacement (TKR) S/P shoulder hemiarthroplasty Social History Social History Alcohol intake: current Smoked in Last 30 Days: Yes Use of substances other than those prescribed or required for medical reasons: Yes Substance Use Type: Marijuana Substance Use Frequency: Daily Last Used Substance: Days (ago) Any prior treatment program specific to substance use: No Advance Directives: No Advance Directives Information Provided: Yes Do you have a plan to hurt others: No Plan Physical Exam 2 Exam: Exam: Appearance: Alert. Oriented X3. No acute distress. Eyes: Pupils equal, round and reactive to light. ENT: Pharynx normal. Neck: Normal inspection. Neck supple. No lymph nodes noted. No crepitus CVS: Normal heart rate and rhythm. Pulses normal. Normal S1 and S2 Respiratory: No respiratory distress. Breath sounds normal. No Wheezing. No rales Abdomen: Soft and nontender. No rigidity. No distention. Skin: Skin warm and dry. Normal skin color. Normal skin turgor. Extremities: No lower extremity edema. Patient's left leg is shortened and externally rotated, unable to abduct the hip Neuro: Oriented X 3. No motor deficit. No sensory deficit. Moving all extremities. No slurred speech. CN 2 through 12 grossly intact Psych: calm, cooperative, normal affect Vital Signs: Vital Signs: Last Vital Signs Temp 97.7 F 07/12/25 05:02 Pulse 97 07/12/25 05:02 Resp 15 07/12/25 05:19 BP 125/74 07/12/25 05:02 Pulse Ox 92 07/12/25 05:02 O2 Del Method Nasal Cannula 07/12/25 05:02 Oxygen Flow Rate 2 07/12/25 05:02 BMI result Body Mass Index 22.8 Medications Administered Discontinued Medications Generic Name Dose Route Start Last Admin Trade Name Lynne PRN Reason Stop Dose Admin Hydromorphone HCl 0.5 mg 07/12/25 05:01 07/12/25 05:19 Hydromorphone Hcl 0.5 Mg/0.5 Ml Syringe IVPUSH 07/12/25 05:02 0.5 mg ONCE ONE Administration Protocol Ondansetron HCl 4 mg 07/12/25 05:01 07/12/25 05:19 Ondansetron Hcl 4 Mg/2 Ml Vial IVPUSH 07/12/25 05:02 4 mg ONCE ONE Administration Medical Decision Making Medical Decision Making [facility] Narrative: Patient came from [facility]. Already diagnosed with a hip fracture. We added some labs to her workup, patient not on blood thinners. Type and screen pending. Chest x-ray and hip x-ray were ordered. Patient was already imaged at [facility]. A turgor takes has been sent to Orthopedics, ROSEANNA Donahue I discussed the above-mentioned with the hospitalist Dr. Alvarez, patient being admitted Lab Data [facility] Lab Attestation statement: I reviewed the patient's lab results. 07/12/25 05:43 07/12/25 05:43 Labs: Lab Results 07/12/25 Range/Units 05:43 WBC 12.1 H (4.8-10.8) X10*3/uL RBC 3.86 L (4.20-5.50) X10*6/uL Hgb 11.9 L (12.0-16.0) g/dl Hct 36.2 L (37.0-47.0) % MCV 93.8 (80.0-98.0) fL MCH 30.8 (27.0-33.0) pg MCHC 32.9 (31.0-35.0) g/dl RDW 13.4 (11.0-16.0) % Plt Count 283 (160-400) X10*3/uL MPV 9.3 L (9.4-12.3) fL Immature Gran % (Auto) 0.4 (0.0-0.4) % Neut % (Auto) 83.4 H (45-73) % Lymph % (Auto) 10.2 L (20-40) % [place] % (Auto) 5.6 (2-11) % Eos % (Auto) 0.2 (0-4) % Baso % (Auto) 0.2 (0-2) % Lymph # (Auto) 1.2 (1.2-4.9) X10*3/uL [place] # (Auto) 0.7 (0.1-1.2) X10*3/uL Eos # (Auto) 0.0 (0.0-0.4) X10*3/uL Baso # (Auto) 0.0 (0.0-0.2) X10*3/uL Abs Immat Gran (auto) 0.05 H (0.00-0.03) X10*3/uL Absolute Neuts (auto) 10.1 H (2.0-8.3) x10*3/uL Absolute Nucleated RBC 0.000 (0.0-0.012) X10*3/uL Nucleated RBC % (auto) 0.0 (0.0-0.2) /100WBC Discharge Plan Discharge Clinical Impression: Closed intertrochanteric fracture of left femur Patient Disposition: Admitted As Inpatient Print Language: Estonian
[2025-07-12 05:52] LABS: Hematocrit 36.2 % (37.0-47.0); Hemoglobin 11.9 g/dl (12.0-16.0); Imm Gran Abs Auto 0.05 X10*3/uL (0.00-0.03); Imm Gran Pct Auto 0.4 % (0.0-0.4); Lymphocytes Absolute Auto 1.2 X10*3/uL (1.2-4.9); MANUAL DIFF FLAG NO; Mean Corpuscular HGB Conc 32.9 g/dl (31.0-35.0); Mean Corpuscular Hemoglobin 30.8 pg (27.0-33.0); Mean Corpuscular Volume 93.8 fL (80.0-98.0); NRBC Abs Auto 0.000 X10*3/uL (0.0-0.012); NRBC Pct Auto 0.0 /100WBC (0.0-0.2); Platelet Count 283 X10*3/uL (160-400); Red Blood Count 3.86 X10*6/uL (4.20-5.50); White Blood Count 12.1 X10*3/uL (4.8-10.8)
[2025-07-12 06:27] LABS: Alanine Aminotransferase 14 U/L (0-31); Albumin Level 4.1 g/dL (3.5-5.0); Alkaline Phosphatase 109 U/L (39-117); Anion Gap 14 (12-20); Aspartate Amino Transferase 47 U/L (5-31); Blood Urea Nitrogen 20 mg/dL (9-16); Calcium 9.4 mg/dL (8.4-10.2); Carbon Dioxide 33 mmol/L (22-29); Chloride 100 mmol/L (96-108); Creatinine Clr Calc Pharmacy 30.7; Estimated Glomerular Filt Rate 41; Potassium 3.7 mmol/L (3.3-5.1); Sodium 143 mmol/L (135-145); Total Protein 7.1 g/dL (6.5-8.0)
[2025-07-12 06:40] LABS: Appearance Urine Clear; Glucose Urine UA Negative (Negative); PH 5.5 (5.0-9.0); Specific Gravity - Urine 1.010 (1.005-1.025); UMIC TRIGGER UA YES
[2025-07-12 06:53] LABS: Magnesium 1.8 mg/dL (1.6-2.6)
[2025-07-12 06:56] LABS: NT Pro B Type Natriuretic Pept 1112.4 pg/mL (<300)
[2025-07-12 07:14] LABS: Glucose, Whole Blood 150 mg/dL (60-115)
[2025-07-12] MEDS: 0.9 % Sodium Chloride Flush 3 ML SYRINGE IVFLUSH ×3 (07:18→20:36)
--- NOTE | 2025-07-12 07:57 | PC.NURSE ---
Pt is alert/oriented. Restful with eyes closed when not engaging with RN. Pt medicated as charted. Mag infusing. Pt changed to hospital attired and repositioned and appears very comfortable at this time. Breathing easy, home 02 dep and sat 93-95% on 2.5lpm via nc. Patel patent. +CMS to left leg, +internal rotation noted. Awaits bed assgn at this time
--- NOTE | 2025-07-12 08:20 | PHA.MEDREC ---
Pharmacy Consult ? Medication Reconciliation Pharmacy has completed the medication reconciliation. Patient had medication list from [facility]
--- NOTE | 2025-07-12 08:53 | CA_ITS ---
Transthoracic Echocardiogram Patient (Last, First, Middle): Briseida Adair, Gender: Female Date of : 1950 Age: 75 Procedure Date: 07/12/2025 Procedure Type: Transthoracic Echocardiogram Location: ER Height: 157.48 cm Weight: 56.25 kg BSA: 1.56 m2 Heart Rate: bpm BP: 134 / 59 mmHg [employer] Continuous Process: TO Referring MD: Singh Zambrano MD Symptoms: Aortic stenosis Study Quality: Fair/Contrast ECG Rhythm: Sinus Conclusions: - The left ventricular systolic function is mildly decreased. The visually estimated ejection fraction is between 45-50%. - There is severe calcification of the aortic valve. There is moderate aortic valve stenosis. - There is severe mitral annular calcification. Findings Procedure Information Contrast agent, definity, is being given per protocol without apparent complications. Left Ventricle Normal left ventricular cavity size. There is normal left ventricular wall thickness. The left ventricular systolic function is mildly decreased. The visually estimated ejection fraction is between 45-50%. There is mild global hypokinesis. Evidence suggests grade I (mild) diastolic dysfunction. Right Ventricle Normal right ventricular cavity size and systolic function. Atria Both atria are normal in size. Aortic Valve There is severe calcification of the aortic valve. There is moderate aortic valve stenosis. The mean gradient is 13 mmHg. The aortic valve area is 1.10 cm2. Dimensionless index 0.35. Stroke volume index 35 mL/m2. Suggestive of paradoxical low-flow, low gradient, moderate aortic stenosis. Trace to mild aortic regurgitation. Mitral Valve There is severe mitral annular calcification. There is no mitral valve regurgitation. There is no mitral valve stenosis. Pulmonic Valve The pulmonic valve is likely normal. Tricuspid Valve There is trace tricuspid valve regurgitation. There is no evidence of pulmonary hypertension. Great Vessels The aorta was not well visualized. The sinuses of valsalva is normal in size. Venous The inferior vena cava is normal in size and collapses greater than 50% with inspiration. Pericardium/Pleural There is no evidence of pericardial effusion. Prior Study Comparison No prior study available for comparison. Measurements 2D Linear Measurements IVSd: 1.01 0.6-0.9/0.6-1.0 cm LVIDd: 4.38 3.9-5.3/4.2-5.9 cm LVIDd Index: 2.81 2.4-3.2/2.2-3.1 cm/m2 LVIDs: 3.32 2.0-3.6 cm LVPWd: 1.02 0.7-1.1 cm LV Mass: 186.52 67-162/88-224 g LV Mass Index: 119.56 43-95/49-115 g/m2 LVOT Diam: 2.20 3.0+(-)1.3 cm 2D Systolic Function EF 4C: 46.20 >55% EF 2C: 41.50 >55% EF BiP: 42.60 >55% Mitral Valve MV VTI: 0.23 MV Pk Ellis: 1.66 MV Mn Ellis: 0.81 MV Pk Grad: 11.00 MV Mn Grad: 3.00 MV Pk E: 0.69 MV PK A: 1.43 MV Decel Time: 143.00 E/A: 0.50 E'Lateral: 4.79 E'Medial: 3.37 E/E' Med: 20.40 E/E' Lat: 14.30 PHT: 42.00 MVA PHT: 5.24 MVA Continuity: 2.39 Decel Collier: 4.81 Aortic Valve AoV Pk Ellis: 2.48 AoV Mn Ellis: 1.71 AoV VTI: 0.50 AoV Pk Grad: 25.00 Aov Mn Grad: 13.00 SHA Cont.VTI: 1.10 LVOT LVOT Pk Ellis: 0.86 LVOT Mn Ellis: 0.52 LVOT VTI: 0.14 LVOT Pk Grad: 3.00 LVOT Mn Grad: 1.00 LVOT Diam: 2.20 LVOT Area: 3.80 Diastolic Function MV Pk E: 0.69 MV Pk A: 1.43 E/A: 0.50 E'Medial: 3.37 E/E' Med: 20.40 E' Laterial: 4.79 E/E' Lat: 14.30 Right Ventricle TAPSE (mm): 21.90 TVS' Ellis: 14.40 Tricuspid Valve RA Press: 3.00 Great Vessels Aorta Sinus of Valsalva: 2.90 2.0-3.5 cm Updated in Other Vendor System with Status of Final Singh Zambrano MD electronically signed on 07/12/2025 12:46:03 PM with status of Final
--- NOTE | 2025-07-12 08:55 | PC.NURSE ---
Cardiology at bedside for consult
--- NOTE | 2025-07-12 09:37 | P.CONCA_ITS ---
History of Present Illness History of Present Illness Date of Service: 07/12/25 Chief complaint: Hip fracture Narrative: This is a cardiology consultation regarding preoperative stratification for hip surgery. Patient with many comorbidities including COPD on home oxygen, stated heart failure with reduced ejection fraction EF of 40%, aortic stenosis, diabetes, gastric bypass among others. Currently admitted with hip fracture and in that context, we asked to see her. It seems that this is a mechanical fall from tripping on oxygen tubing. Patient is not really able to give much information about her cardiac issues. She states she is probably seen a hydrogen power plant engineer more than a year ago but again not sure. She has aortic stenosis mentioned in the history but patient cannot give me much information. Denies any history of coronary disease, myocardial infarction or cardiomyopathy. She does not seem to be too active at baseline but states she does get short of breath. Review of Systems 2 Review of Systems: Yes all other systems are reviewed and are negative Constitutional: Constitutional: Reports as per HPI and Reports no additional constitutional complaints Eyes: Eyes: Reports as per HPI and Denies no additional eye complaints ENT: Denies system reviewed and no additional complaints, except as documented and Reports as per HPI Cardiovascular: Cardiovascular: Reports as per HPI, Reports no additional cardiovascular complaints, Denies acrocyanosis, Denies cool extremities, Denies chest pain, Denies leg edema, Denies lightheadedness, Denies palpitations and Reports dyspnea Respiratory: Respiratory: Reports as per HPI, Denies no additional respiratory complaints and Reports dyspnea Gastrointestinal: Gastrointestinal: Reports as per HPI and Denies no additional gastrointestinal complaints Genitourinary: Genitourinary: Reports as per HPI Musculoskeletal: Musculoskeletal: Reports no additional musculoskeletal complaints and Reports as per HPI Integumentary/Breasts: Skin/Breast: Reports system reviewed and no additional complaints, except as docu Neurologic: Reports system reviewed and no additional complaints, except as documented and Reports as per HPI Psychiatric: Psychiatric: Reports no additional psychiatric complaints and Reports as per HPI Endocrine: Endocrine: Reports no additional endocrine complaints, Reports as per HPI and Denies palpitations Hematologic/Lymphatic: Hematologic/Lymphatic: Reports no additional hematologic/lymphatic complaints and Reports as per HPI Allergic/Immunologic: Allergic/Immunologic: Reports no additional allergic/immunologic complaints and Reports as per HPI [facility] Past Medical History Medical History (Updated 07/12/25 @ 09:40 by iSngh Zambrano MD) Diabetic neuropathy Hypothyroidism Ileus Hearing loss Footdrop NAFLD (nonalcoholic fatty liver disease) Fibromyalgia Diverticulitis CKD (chronic kidney disease) stage 3, GFR 30-59 ml/min COPD (chronic obstructive pulmonary disease) Anemia Wrist fracture HFrEF (heart failure with reduced ejection fraction) Aortic stenosis Glaucoma GERD (gastroesophageal reflux disease) Depression with anxiety Hyperlipidemia Hypertension Family History Pertinent family history: No pertinent family history. Surgical History Surgical History (Updated 07/12/25 @ 06:07 by ARIES Shipman) Gastric bypass status for obesity History of total right knee replacement (TKR) S/P shoulder hemiarthroplasty Social History Social History Alcohol intake: current Smoked in Last 30 Days: Yes Use of substances other than those prescribed or required for medical reasons: Yes Substance Use Type: Marijuana Substance Use Frequency: Daily Last Used Substance: Days (ago) Any prior treatment program specific to substance use: No Advance Directives: No Advance Directives Information Provided: Yes Do you have a plan to hurt others: No Plan Patient : No Travel History Ebola Risk: Travel/Contact With Anyone From Affected Area/s: No Has Patient Experienced Ebola Symptoms: No Meds Allergies Allergy/AdvReac Type Severity Reaction Status Date / Time liraglutide (From Victoza) Allergy Rash Verified 07/12/25 05:06 Sulfa (Sulfonamide Allergy Rash Verified 07/12/25 05:06 Antibiotics) erythromycin base AdvReac Gastrointestinal Verified 07/12/25 05:06 Upset Active Medications: Current Medications Acetaminophen (Acetaminophen 325 Mg Tablet) 650 mg PO Q6H PRN PRN Reason: Pain, Mild 1-3,fever,headache Albuterol/Ipratropium (Albuterol/Iprat 2.5/0.5mg 3 Ml Ampul.Neb) 3 ml INHALE Q4H PRN PRN Reason: Shortness of Breath/Wheezing Calcium Carbonate (Calcium Carbonate 750 Mg Tab.Chew) 750 mg PO Q4H PRN PRN Reason: Heartburn Dextrose (Dextrose 50 % 25 Gm/50 Ml Syringe) 25 gm IVPUSH Q15M PRN; Protocol PRN Reason: per Hypoglycemia Standing Ord. Glucose (Glucose Gel 15 Gm Gel..Gram.) 15 gm PO Q15M PRN; Protocol PRN Reason: per Hypoglycemia Standing Ord. Insulin Human Lispro (Insulin Lispro 100 Unit/Ml 3 Ml Vial) 0 unit SUBCUT Q6H [facility]; Protocol Last Admin: 07/12/25 07:20 Dose: Not Given Magnesium Hydroxide (Milk Of Magnesia 30 Ml Oral.Susp) 30 ml PO DAILY PRN PRN Reason: Constipation Melatonin (Melatonin 3 Mg Tablet) 6 mg PO BEDTIME PRN PRN Reason: Insomnia Morphine Sulfate (Morphine Sulfate 4 Mg/Ml Cartridge) 1 mg IVPUSH Q3H PRN; Protocol PRN Reason: Pain, Severe (Pain Scale 7-10) Morphine Sulfate (Morphine Sulfate 4 Mg/Ml Cartridge) 0.5 mg IVPUSH Q3H PRN; Protocol PRN Reason: Pain, Moderate(Pain Scale 4-6) Ondansetron HCl (Ondansetron Hcl 4 Mg/2 Ml Vial) 4 mg IVPUSH Q8H PRN PRN Reason: Nausea and Vomiting Pantoprazole Sodium (Pantoprazole Sodium 40 Mg/10 Ml Vial) 40 mg IVPUSH DAILY@0630 [facility] Last Admin: 07/12/25 07:18 Dose: 40 mg Polyethylene Glycol (Polyethylene Glycol 3350 17 Gm Powd.Pack) 17 gm PO DAILY PRN PRN Reason: Constipation Senna (Sennosides 8.6 Mg Tablet) 17.2 mg PO BEDTIME [facility] Sodium Chloride (0.9 % Sodium Chloride Flush 3 Ml Syringe) 3 ml IVFLUSH QSHIFT [facility] Last Admin: 07/12/25 07:18 Dose: 3 ml Home Medications ?Medication ?Instructions ?Recorded ?Confirmed ?Last Taken ?Type amlodipine 10 mg tablet 10 mg PO DAILY 07/12/2510/05 Unknown History atorvastatin 40 mg tablet 40 mg PO QAM 07/12/25 Unknown History azithromycin 250 mg tablet 250 mg PO MOWEFR 07/12/25 1 09/11/24 Unknown History celecoxib 200 mg capsule 200 mg PO BID 07/12/2507/12 Unknown History duloxetine 60 mg capsule,delayed 60 mg PO DAILY 07/12/25 Unknown History release ergocalciferol (vitamin D2) 1,250 1,250 mcg PO QWEEK 1 09/11/24 07/12/25 Unknown History mcg (50,000 unit) capsule esomeprazole magnesium 40 mg 40 mg PO BID 07/12/2510/05 Unknown History capsule,delayed release famotidine 40 mg tablet 40 mg PO DAILY 07/12/25/10/05 Unknown History fluticasone propionate 50 2 spray intranasal DAILY 10/0507/12/25 Unknown History mcg/actuation nasal spray,suspension furosemide 40 mg tablet 40 mg PO QAM 07/12/25 Unknown History lamotrigine 100 mg tablet 200 mg PO DAILY 07/12/2510/05 Unknown History latanoprost 0.005 % eye drops 1 drp ophthalmic (eye) B EDTIME 07/12/25 07/12/25 Unknown History levothyroxine 112 mcg tablet 112 mcg PO DAILY 07/12/25 07/12/25 Unknown History lorazepam 0.5 mg tablet 0.5 mg PO DAILY PRN anxiety attack 07/12/25 07/12/25 Unknown History trazodone 100 mg tablet 200 mg PO BEDTIME PRN insomn ia 07/12/25 07/12/25 Unknown History umeclidinium 62.5 mcg-vilanterol 1 ea inhalation DAILY 07/12/25 07/12/25 Unknown History 25 mcg/actuation powdr for inhalation (Anoro Ellipta) Physical Exam 2 Vital Signs: Vital Signs: Last Vital Signs Temp 97.7 F 07/12/25 05:02 Pulse 86 07/12/25 08:25 Resp 16 07/12/25 08:25 BP 125/67 07/12/25 08:25 Pulse Ox 96 07/12/25 08:25 O2 Del Method Nasal Cannula 07/12/25 08:25 O2 Flow Rate 2.5 07/12/25 08:25 Oxygen Flow Rate 2 07/12/25 05:02 BMI result Body Mass Index 22.8 Const: General: comfortable and no acute distress O rientation/consciousness: patient oriented x3 HEENT: Other: Unremarkable Head: Yes normal to inspection Neck: Neck: Yes normal visual inspection Chest: Chest palpation & inspection: normal inspection of the chest Resp: Auscultation: diminished lung sounds Cardio: Palpation: normal PMI Heart sounds: S1 normal heart sound present, S2 normal heart sound present, no gallops, Murmur heart sound present systolic II/ and no rubs GI: Palpation (GI): Soft to palpation Back/Spine/Pelvis: Other: unremarkable Skin: General skin exam: no rashes or lesions noted Neuro: General: patient oriented x3 Extrem: General: Yes normal to inspection Psych: Mental Status: mental status grossly normal Objective Labs and Meds 07/12/25 05:43 07/12/25 05:43 Lab results: Laboratory Results - last 24 hr 07/12/25 07/12/25 07/12/25 05:43 05:59 06:34 WBC 12.1 H RBC 3.86 L Hgb 11.9 L Hct 36.2 L MCV 93.8 MCH 30.8 MCHC 32.9 RDW 13.4 Plt Count 283 MPV 9.3 L Immature Gran % (Auto) 0.4 Neut % (Auto) 83.4 H Lymph % (Auto) 10.2 L Hancock % (Auto) 5.6 Eos % (Auto) 0.2 Baso % (Auto) 0.2 Lymph # (Auto) 1.2 Hancock # (Auto) 0.7 Eos # (Auto) 0.0 Baso # (Auto) 0.0 Abs Immat Gran (auto) 0.05 H Absolute Neuts (auto) 10.1 H Absolute Nucleated RBC 0.000 Nucleated RBC % (auto) 0.0 Sodium 143 Potassium 3.7 Chloride 100 Carbon Dioxide 33 H Anion Gap 14 BUN 20 H Creatinine 1.27 Estim Creat Clear Calc 30.7 Estimated GFR 41 POC Glucose Random Glucose 166 H Calcium 9.4 Magnesium 1.8 Total Bilirubin 0.5 AST 47 H ALT 14 Alkaline Phosphatase 109 NT-Pro-B Natriuret Pep 1112.4 H Total Protein 7.1 Albumin 4.1 Urine Color Yellow Urine Appearance Clear Urine pH 5.5 Ur Specific Shafer 1.010 Urine Protein Negative Urine Glucose (UA) Negative Urine Ketones Negative Urine Blood Negative Urine Nitrite Negative Ur Leukocyte Esterase Trace H Urine RBC 0-2 Urine WBC 0-5 Ur Squamous Epith Cells 0-2 Urine Bacteria None Seen Hyaline Casts 0-2 Blood Type O Positive Antibody Screen NEGATIVE 07/12/25 07:11 WBC RBC Hgb Hct MCV MCH MCHC RDW Plt Count MPV Immature Gran % (Auto) Neut % (Auto) Lymph % (Auto) Hancock % (Auto) Eos % (Auto) Baso % (Auto) Lymph # (Auto) Hancock # (Auto) Eos # (Auto) Baso # (Auto) Abs Immat Gran (auto) Absolute Neuts (auto) Absolute Nucleated RBC Nucleated RBC % (auto) Sodium Potassium Chloride Carbon Dioxide Anion Gap BUN Creatinine Estim Creat Clear Calc Estimated GFR POC Glucose 150 H Random Glucose Calcium Magnesium Total Bilirubin AST ALT Alkaline Phosphatase NT-Pro-B Natriuret Pep Total Protein Albumin Urine Color Urine Appearance Urine pH Ur Specific Shafer Urine Protein Urine Glucose (UA) Urine Ketones Urine Blood Urine Nitrite Ur Leukocyte Esterase Urine RBC Urine WBC Ur Squamous Epith Cells Urine Bacteria Hyaline Casts Blood Type Antibody Screen ECG Interpretation: EKG with underlying sinus rhythm at 85/Min; PVCs; minimal criteria for LVH; slight QT prolongation and corrected QT is 402 milliseconds but there is also QRS widening which contributes to it. Assessment and Plan (1) Preoperative cardiovascular examination: Status: Acute (2) Aortic stenosis: Status: Acute (3) Cardiomyopathy: Status: Acute Plan Many comorbidities, stated heart failure and LVEF 40%, aortic stenosis but no objective data. She needs an echocardiogram for LVEF as well as to assess the aortic stenosis further. Requested for today. We will follow up on this and make further recommendations. Procedures Date of Service Date of Service: 07/12/25
--- NOTE | 2025-07-12 11:13 | PC.NURSE ---
Pt requesting pain medication for 10/10 left hip pain, PRN Morphine puleed and offered. Pt declined requesting Diluadid. Dr. Navas notified. Awaiting orders
--- NOTE | 2025-07-12 11:27 | PM.CNOR ---
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 Patient states she tripped on her oxygen tubing approximately 20:00 last evening and had to crawl to her phone to call 911. Patient has 2 housemates but neither were available for assistance. She states she is independent with most things but does have a adult caregiver to help a few hours during the week for outside chores. <Rowan Vincent PA-C - Last Filed: 07/12/25 11:32> Review of Systems Review of Systems: Yes all other systems are reviewed and are negative <Rowan Vincent PA-C - Last Filed: 07/12/25 11:32> [facility] Past Medical History Medical History: Medical History (Updated 07/12/25 @ 09:40 by Singh Zambrano MD) Diabetic neuropathy Hypothyroidism Ileus Hearing loss Footdrop NAFLD (nonalcoholic fatty liver disease) Fibromyalgia Diverticulitis CKD (chronic kidney disease) stage 3, GFR 30-59 ml/min COPD (chronic obstructive pulmonary disease) Anemia Wrist fracture HFrEF (heart failure with reduced ejection fraction) Aortic stenosis Glaucoma GERD (gastroesophageal reflux disease) Depression with anxiety Hyperlipidemia Hypertension <Rowan Vincent PA-C - Last Filed: 07/12/25 11:32> Surgical History Surgical History: Surgical History (Updated 07/12/25 @ 06:07 by ARIES Shipman) Gastric bypass status for obesity History of total right knee replacement (TKR) S/P shoulder hemiarthroplasty <Rowan Vincent PA-C - Last Filed: 07/12/25 11:32> Social History Social History: Social History Household Members: Other Household Members Other:: 2 room mates Housing: House Do you presently have visiting nurse or other home services: No (PT) Alcohol intake: current Patient Tobacco Use Status: Never used Tobacco Second Hand Smoke Exposure: No Substance Use Type: Marijuana <DANNY Gupta Last Filed: 07/12/25 11:32> Travel History Ebola Risk: Travel/Contact With Anyone From Affected Area/s: No <DANNY Gupta Last Filed: 07/12/25 11:32> Has Patient Experienced Ebola Symptoms: No <DANNY Gupta Last Filed: 07/12/25 11:32> Meds Allergies/Adverse reactions: Allergies Allergy/AdvReac Type Severity Reaction Status Date / Time liraglutide (From Victoza) Allergy Rash Verified 07/12/25 05:06 Sulfa (Sulfonamide Allergy Rash Verified 07/12/25 05:06 Antibiotics) erythromycin base AdvReac Gastrointestinal Verified 07/12/25 05:06 Upset <DANNY Gupta Last Filed: 07/12/25 11:32> Active Medications: Current Medications Acetaminophen (Acetaminophen 325 Mg Tablet) 650 mg PO Q6H PRN PRN Reason: Pain, Mild 1-3,fever,headache Albuterol/Ipratropium (Albuterol/Iprat 2.5/0.5mg 3 Ml Ampul.Neb) 3 ml INHALE Q4H PRN PRN Reason: Shortness of Breath/Wheezing Calcium Carbonate (Calcium Carbonate 750 Mg Tab.Chew) 750 mg PO Q4H PRN PRN Reason: Heartburn Dextrose (Dextrose 50 % 25 Gm/50 Ml Syringe) 25 gm IVPUSH Q15M PRN; Protocol PRN Reason: per Hypoglycemia Standing Ord. Glucose (Glucose Gel 15 Gm Gel..Gram.) 15 gm PO Q15M PRN; Protocol PRN Reason: per Hypoglycemia Standing Ord. Hydromorphone HCl (Hydromorphone Hcl 1 Mg/Ml Syringe) 1 mg IVPUSH Q4H PRN; Protocol PRN Reason: Pain, Severe (Pain Scale 7-10) Last Admin: 07/12/25 11:21 Dose: 1 mg Insulin Human Lispro (Insulin Lispro 100 Unit/Ml 3 Ml Vial) 0 unit SUBCUT Q6H [facility]; Protocol Last Admin: 07/12/25 07:20 Dose: Not Given Magnesium Hydroxide (Milk Of Magnesia 30 Ml Oral.Susp) 30 ml PO DAILY PRN PRN Reason: Constipation Melatonin (Melatonin 3 Mg Tablet) 6 mg PO BEDTIME PRN PRN Reason: Insomnia Ondansetron HCl (Ondansetron Hcl 4 Mg/2 Ml Vial) 4 mg IVPUSH Q8H PRN PRN Reason: Nausea and Vomiting Pantoprazole Sodium (Pantoprazole Sodium 40 Mg/10 Ml Vial) 40 mg IVPUSH DAILY@0630 [facility] Last Admin: 07/12/25 07:18 Dose: 40 mg Polyethylene Glycol (Polyethylene Glycol 3350 17 Gm Powd.Pack) 17 gm PO DAILY PRN PRN Reason: Constipation Senna (Sennosides 8.6 Mg Tablet) 17.2 mg PO BEDTIME [facility] Sodium Chloride (0.9 % Sodium Chloride Flush 3 Ml Syringe) 3 ml IVFLUSH QSHIFT [facility] Last Admin: 07/12/25 07:18 Dose: 3 ml <Rowan Vincent PA-C - Last Filed: 07/12/25 11:32> Home medications: Home Medications ?Medication ?Instructions ?Recorded ?Confirmed ?Last Taken ?Type amlodipine 10 mg tablet 10 mg PO DAILY 07/12/25 07/12/25 Unknown History atorvastatin 40 mg tablet 40 mg PO QAM 07/12/25 07/12/25 Unknown History azithromycin 250 mg tablet 250 mg PO MOWEFR 07/12/25 07/12/25 Unknown History celecoxib 200 mg capsule 200 mg PO BID 07/12/25 07/12/25 Unknown History duloxetine 60 mg capsule,delayed 60 mg PO DAILY 07/12/25 07/12/25 Unknown History release ergocalciferol (vitamin D2) 1,250 1,250 mcg PO QWEEK 07/12/25 07/12/25 Unknown History mcg (50,000 unit) capsule esomeprazole magnesium 40 mg 40 mg PO BID 07/12/25 07/12/25 Unknown History capsule,delayed release famotidine 40 mg tablet 40 mg PO DAILY 07/12/25 07/12/25 Unknown History fluticasone propionate 50 2 spray intranasal DAILY 07/12/25 07/12/25 Unknown History mcg/actuation nasal spray,suspension furosemide 40 mg tablet 40 mg PO QAM 07/12/25 07/12/25 Unknown History lamotrigine 100 mg tablet 200 mg PO DAILY 07/12/25 07/12/25 Unknown History latanoprost 0.005 % eye drops 1 drp ophthalmic (eye) BEDTIME 07/12/25 07/12/25 Unknown History levothyroxine 112 mcg tablet 112 mcg PO DAILY 07/12/25 07/12/25 Unknown History lorazepam 0.5 mg tablet 0.5 mg PO DAILY PRN anxiety attack 07/12/25 07/12/25 Unknown History trazodone 100 mg tablet 200 mg PO BEDTIME PRN insomnia 07/12/25 07/12/25 Unknown History umeclidinium 62.5 mcg-vilanterol 1 ea inhalation DAILY 07/12/25 07/12/25 Unknown History 25 mcg/actuation powdr for inhalation (Anoro Ellipta) <Rowan Vincent PA-C - Last Filed: 07/12/25 11:32> Physical Exam Vital Signs: Vital Signs: Last Vital Signs Temp 97.7 F 07/12/25 05:02 Pulse 89 07/12/25 11:11 Resp 19 07/12/25 11:11 BP 134/59 L 07/12/25 11:11 Pulse Ox 96 07/12/25 11:11 O2 Del Method Nasal Cannula 07/12/25 11:11 O2 Flow Rate 2 07/12/25 11:11 Oxygen Flow Rate 2 07/12/25 05:02 BMI result Body Mass Index 22.8 <Rowan Vincent PA-C - Last Filed: 07/12/25 11:32> Const: General: cooperative, healthy appearing, comfortable and no acute distress <Rowan Vincent PA-C - Last Filed: 07/12/25 11:32> Extrem: Other: Left hip skin intact, leg is short and IR. She has pain with log roll and unable to lift leg. She is able to move her toes and sensation and pulses are present. <DANNY Gupta Last Filed: 07/12/25 11:32> Results Labs Result Diagrams: 07/12/25 05:43 07/12/25 05:43 <DANNY Gupta Last Filed: 07/12/25 11:32> Labs: Abnormal lab results 07/12/25 07/12/25 07/12/25 Range/Units 05:43 06:34 07:11 WBC 12.1 H (4.8-10.8) X10*3/uL RBC 3.86 L (4.20-5.50) X10*6/uL Hgb 11.9 L (12.0-16.0) g/dl Hct 36.2 L (37.0-47.0) % MPV 9.3 L (9.4-12.3) fL Neut % (Auto) 83.4 H (45-73) % Lymph % (Auto) 10.2 L (20-40) % Abs Immat Gran (auto) 0.05 H (0.00-0.03) X10*3/uL Absolute Neuts (auto) 10.1 H (2.0-8.3) x10*3/uL Carbon Dioxide 33 H (22-29) mmol/L BUN 20 H (9-16) mg/dL POC Glucose 150 H (60-115) mg/dL Random Glucose 166 H (60-115) mg/dL AST 47 H (5-31) U/L NT-Pro-B Natriuret Pep 1112.4 H (<300) pg/mL Ur Leukocyte Esterase Trace H (Negative) H & H 07/12/25 Range/Units 05:43 Hgb 11.9 L (12.0-16.0) g/dl Hct 36.2 L (37.0-47.0) % All other labs normal. <DANNY Gupta Last Filed: 07/12/25 11:32> Assessment and Plan (1) Closed intertrochanteric fracture of left femur: Status: Acute <DANNY Gupta Last Filed: 07/12/25 11:32> I explained to the patient the extent of his injury which would benefit from surgical intervention for optimal functioning. The patient does understand nonsurgical intervention would result in significantly limited function including bed bound for anywhere from 8-12 weeks at least. Given the patient's activity level and he is independent with ADL's, it would be recommended to pursue surgical intervention. We discussed the procedure in detail along with the risks benefits and alternatives. Risks including but not limited to infection, injury to surrounding nerves and tissue and bone, small and large vessels, stiffness,need for further surgery, DVT/PE along with intraoperative complications including but not limited to . We discussed postoperative recovery which includes Home with VNA vs STR. I explained typical recovery is often WBAT with a walker for approximately 6 weeks,but overall recovery could be anywhere from 6-12 months. The patient does express understanding and would like to proceed with Operative fixation of the left hip with Dr. Zendejas. The patient will be booked accordingly. remain NPO , medical clearance pending cardiac ECHo. <Rowan Vincent PA-C - Last Filed: 07/12/25 11:32> Procedures Date of Service Date of Service: 07/12/25 <Rowan Vincent PA-C - Last Filed: 07/12/25 11:32> 07/12/25 <El Zendejas MD - Last Filed: 07/12/25 16:21>
[2025-07-12 13:12] LABS: Glucose, Whole Blood 144 mg/dL (60-115)
--- NOTE | 2025-07-12 13:57 | PM.EVENT ---
Event Note Date of Service: 07/12/25 Event Note: Chart reviewed patient examined agree with history and physical and assessment and plan as outlined. Appreciate cardiac involvement for risk stratification. Further plans as per ortho Time Spent With Patient Time: Total time managing care of this patient today ____ minutes.
--- NOTE | 2025-07-12 15:56 | HO.ANESPROP2 ---
HPI - Anesthesia Eval Consult details Narrative: Left femur fracture PMFSH Active Problems Active Problems: All Active Problems (Updated 07/12/25 @ 09:40 by Singh Zambrano MD) Cardiomyopathy (Acute) Preoperative cardiovascular examination (Acute) Closed intertrochanteric fracture of left femur (Acute) Diabetic neuropathy (Acute) Hypothyroidism (Acute) Hearing loss (Acute) Footdrop (Acute) NAFLD (nonalcoholic fatty liver disease) (Acute) Fibromyalgia (Acute) CKD (chronic kidney disease) stage 3, GFR 30-59 ml/min (Acute) COPD (chronic obstructive pulmonary disease) (Acute) Anemia (Acute) HFrEF (heart failure with reduced ejection fraction) (Acute) Aortic stenosis (Acute) Glaucoma (Acute) GERD (gastroesophageal reflux disease) (Acute) Depression with anxiety (Acute) Hyperlipidemia (Acute) Hypertension (Acute) Femur fracture, left (Acute) Past Medical History Medical History (Updated 07/12/25 @ 09:40 by Singh Zambrano MD) Diabetic neuropathy Hypothyroidism Ileus Hearing loss Footdrop NAFLD (nonalcoholic fatty liver disease) Fibromyalgia Diverticulitis CKD (chronic kidney disease) stage 3, GFR 30-59 ml/min COPD (chronic obstructive pulmonary disease) Anemia Wrist fracture HFrEF (heart failure with reduced ejection fraction) Aortic stenosis Glaucoma GERD (gastroesophageal reflux disease) Depression with anxiety Hyperlipidemia Hypertension Functional capacity: uses cane/walker Family History Family history of problems with anesthesia: No Surgical History Surgical History (Updated 07/12/25 @ 06:07 by ARIES Shipman) Gastric bypass status for obesity History of total right knee replacement (TKR) S/P shoulder hemiarthroplasty History of Problems with Anesthesia: No Social History Social History Household Members: Other Household Members Other:: 2 room mates Housing: House Do you presently have visiting nurse or other home services: No (PT) Alcohol intake: current Patient Tobacco Use Status: Never used Tobacco Second Hand Smoke Exposure: No Substance Use Type: Marijuana Meds Allergies Allergy/AdvReac Type Severity Reaction Status Date / Time liraglutide (From Victoza) Allergy Rash Verified 07/12/25 05:06 Sulfa (Sulfonamide Allergy Rash Verified 07/12/25 05:06 Antibiotics) erythromycin base AdvReac Gastrointestinal Verified 07/12/25 05:06 Upset Active Medications: Current Medications Acetaminophen (Acetaminophen 325 Mg Tablet) 650 mg PO Q6H PRN PRN Reason: Pain, Mild 1-3,fever,headache Albuterol/Ipratropium (Albuterol/Iprat 2.5/0.5mg 3 Ml Ampul.Neb) 3 ml INHALE Q4H PRN PRN Reason: Shortness of Breath/Wheezing Calcium Carbonate (Calcium Carbonate 750 Mg Tab.Chew) 750 mg PO Q4H PRN PRN Reason: Heartburn Dextrose (Dextrose 50 % 25 Gm/50 Ml Syringe) 25 gm IVPUSH Q15M PRN; Protocol PRN Reason: per Hypoglycemia Standing Ord. Glucose (Glucose Gel 15 Gm Gel..Gram.) 15 gm PO Q15M PRN; Protocol PRN Reason: per Hypoglycemia Standing Ord. Hydromorphone HCl (Hydromorphone Hcl 1 Mg/Ml Syringe) 1 mg IVPUSH Q3H PRN; Protocol PRN Reason: Pain, Severe (Pain Scale 7-10) Last Admin: 07/12/25 14:54 Dose: 1 mg Cefazolin Sodium/Dextrose (Ancef) 2 gm in 50 mls @ 100 mls/hr IV PREOP ONE Stop: 07/12/25 16:29 Insulin Human Lispro (Insulin Lispro 100 Unit/Ml 3 Ml Vial) 0 unit SUBCUT Q6H [facility]; Protocol Last Admin: 07/12/25 13:34 Dose: Not Given Magnesium Hydroxide (Milk Of Magnesia 30 Ml Oral.Susp) 30 ml PO DAILY PRN PRN Reason: Constipation Melatonin (Melatonin 3 Mg Tablet) 6 mg PO BEDTIME PRN PRN Reason: Insomnia Ondansetron HCl (Ondansetron Hcl 4 Mg/2 Ml Vial) 4 mg IVPUSH Q8H PRN PRN Reason: Nausea and Vomiting Last Admin: 07/12/25 11:28 Dose: 4 mg Pantoprazole Sodium (Pantoprazole Sodium 40 Mg/10 Ml Vial) 40 mg IVPUSH DAILY@0630 [facility] Last Admin: 07/12/25 07:18 Dose: 40 mg Polyethylene Glycol (Polyethylene Glycol 3350 17 Gm Powd.Pack) 17 gm PO DAILY PRN PRN Reason: Constipation Senna (Sennosides 8.6 Mg Tablet) 17.2 mg PO BEDTIME [facility] Sodium Chloride (0.9 % Sodium Chloride Flush 3 Ml Syringe) 3 ml IVFLUSH QSHIFT [facility] Last Admin: 07/12/25 15:18 Dose: 3 ml Home Medications ?Medication ?Instructions ?Recorded ?Confirmed ?Last Taken ?Type amlodipine 10 mg tablet 10 mg PO DAILY 07/12/25 07/12/25 Unknown History atorvastatin 40 mg tablet 40 mg PO QAM 07/12/25 07/12/25 Unknown History azithromycin 250 mg tablet 250 mg PO MOWEFR 07/12/25 07/12/25 Unknown History celecoxib 200 mg capsule 200 mg PO BID 07/12/25 07/12/25 Unknown History duloxetine 60 mg capsule,delayed 60 mg PO DAILY 07/12/25 07/12/25 Unknown History release ergocalciferol (vitamin D2) 1,250 1,250 mcg PO QWEEK 07/12/25 07/12/25 Unknown History mcg (50,000 unit) capsule esomeprazole magnesium 40 mg 40 mg PO BID 07/12/25 07/12/25 Unknown History capsule,delayed release famotidine 40 mg tablet 40 mg PO DAILY 07/12/25 07/12/25 Unknown History fluticasone propionate 50 2 spray intranasal DAILY 07/12/25 07/12/25 Unknown History mcg/actuation nasal spray,suspension furosemide 40 mg tablet 40 mg PO QAM 07/12/25 07/12/25 Unknown History lamotrigine 100 mg tablet 200 mg PO DAILY 07/12/25 07/12/25 Unknown History latanoprost 0.005 % eye drops 1 drp ophthalmic (eye) BEDTIME 07/12/25 07/12/25 Unknown History levothyroxine 112 mcg tablet 112 mcg PO DAILY 07/12/25 07/12/25 Unknown History lorazepam 0.5 mg tablet 0.5 mg PO DAILY PRN anxiety attack 07/12/25 07/12/25 Unknown History trazodone 100 mg tablet 200 mg PO BEDTIME PRN insomnia 07/12/25 07/12/25 Unknown History umeclidinium 62.5 mcg-vilanterol 1 ea inhalation DAILY 07/12/25 07/12/25 Unknown History 25 mcg/actuation powdr for inhalation (Anoro Ellipta) Exam Height,Weight and Vital Signs: Height 5 ft 2 in Weight 56.5 kg Last Vital Signs Temp 97.6 F 07/12/25 15:09 Pulse 86 07/12/25 15:09 Resp 18 07/12/25 15:09 BP 112/56 L 07/12/25 15:09 Pulse Ox 95 07/12/25 15:09 O2 Del Method Nasal Cannula 07/12/25 15:09 O2 Flow Rate 2 07/12/25 15:09 Oxygen Flow Rate 2 07/12/25 05:02 Pertinent Lab Results Pertinent Lab Results: Laboratory Tests 07/12/25 07/12/25 07/12/25 05:43 05:59 06:34 WBC 12.1 H RBC 3.86 L Hgb 11.9 L Hct 36.2 L MCV 93.8 MCH 30.8 MCHC 32.9 RDW 13.4 Plt Count 283 MPV 9.3 L Immature Gran % (Auto) 0.4 Neut % (Auto) 83.4 H Lymph % (Auto) 10.2 L [place] % (Auto) 5.6 Eos % (Auto) 0.2 Baso % (Auto) 0.2 Lymph # (Auto) 1.2 [place] # (Auto) 0.7 Eos # (Auto) 0.0 Baso # (Auto) 0.0 Abs Immat Gran (auto) 0.05 H Absolute Neuts (auto) 10.1 H Absolute Nucleated RBC 0.000 Nucleated RBC % (auto) 0.0 Sodium 143 Potassium 3.7 Chloride 100 Carbon Dioxide 33 H Anion Gap 14 BUN 20 H Creatinine 1.27 Estim Creat Clear Calc 30.7 Estimated GFR 41 POC Glucose Random Glucose 166 H Calcium 9.4 Magnesium 1.8 Total Bilirubin 0.5 AST 47 H ALT 14 Alkaline Phosphatase 109 NT-Pro-B Natriuret Pep 1112.4 H Total Protein 7.1 Albumin 4.1 Urine Color Yellow Urine Appearance Clear Urine pH 5.5 Ur Specific [place] 1.010 Urine Protein Negative Urine Glucose (UA) Negative Urine Ketones Negative Urine Blood Negative Urine Nitrite Negative Ur Leukocyte Esterase Trace H Urine RBC 0-2 Urine WBC 0-5 Ur Squamous Epith Cells 0-2 Urine Bacteria None Seen Hyaline Casts 0-2 Blood Type O Positive Antibody Screen NEGATIVE 07/12/25 07/12/25 07:11 13:08 WBC RBC Hgb Hct MCV MCH MCHC RDW Plt Count MPV Immature Gran % (Auto) Neut % (Auto) Lymph % (Auto) [place] % (Auto) Eos % (Auto) Baso % (Auto) Lymph # (Auto) [place] # (Auto) Eos # (Auto) Baso # (Auto) Abs Immat Gran (auto) Absolute Neuts (auto) Absolute Nucleated RBC Nucleated RBC % (auto) Sodium Potassium Chloride Carbon Dioxide Anion Gap BUN Creatinine Estim Creat Clear Calc Estimated GFR POC Glucose 150 H 144 H Random Glucose Calcium Magnesium Total Bilirubin AST ALT Alkaline Phosphatase NT-Pro-B Natriuret Pep Total Protein Albumin Urine Color Urine Appearance Urine pH Ur Specific [place] Urine Protein Urine Glucose (UA) Urine Ketones Urine Blood Urine Nitrite Ur Leukocyte Esterase Urine RBC Urine WBC Ur Squamous Epith Cells Urine Bacteria Hyaline Casts Blood Type Antibody Screen Airway Mallampati Class: I TM Dist: >3cm Neck ROM: Full Loose/Missing/Broken Teeth: No Heart: RRR Lungs: CTA Assessment and Plan Assessment Anesthesia Assessment: Anesthesia Plan Discussed and Chart Reviewed Final Anesthetic Review Family History of Problems with Anesthesia: No History of Problems with Anesthesia: No NPO: Yes ASA Class: III Final Preanesthetic Review: No Changes in Pt Med Stat, Meds/Allgs Chart Reviewed, Consent Obtained/Reviewed and Anes Risks/Benef Reviewed Patient Risk: Intermediate Procedure Risk: Intermediate Anesthetic Plan Anesthetic Plan: GA Disposition: Standard PACU
[2025-07-12 16:06] LABS: Glucose, Whole Blood 141 mg/dL (60-115)
--- NOTE | 2025-07-12 16:20 | MHC.SHP ---
Pre-Procedural Eval Section A - 24 Hr Update-Section A only Date of Service: 07/12/25 The patient is an INPATIENT: Yes Changes since office visit: No Cold of Flu in the past 2 weeks, No New Medical Problems, No Changes in Medication and No Patient answered all questions The patient has been examined within 24 hours of the surgical procedure. The History & Physical has been completed within 30 days and I have reviewed it.: Yes Section B - Complete if H&P > 30 days Chief Complaint: Hip fracture Allergies: Allergies Allergy/AdvReac Type Severity Reaction Status Date / Time liraglutide (From Victoza) Allergy Rash Verified 07/12/25 05:06 Sulfa (Sulfonamide Allergy Rash Verified 07/12/25 05:06 Antibiotics) erythromycin base AdvReac Gastrointestinal Verified 07/12/25 05:06 Upset Plan I have reviewed the history and physical and performed a pertinent physical examination on my patient. No changes have occurred unless specified. Time Spent With Patient Time: Total time managing care of this patient today ____ minutes.
--- NOTE | 2025-07-12 17:50 | PM.OP ---
Brief Operative Note Date of Service: 07/12/25 Pre-op diagnosis: Left intertrochanteric femur fracture Post-op diagnosis: same Procedure: Left hip IMN Implants: Stryer 11x 360 125 deg IMN with 80mm lag and 2 distal interlocking screw, 45; 40 mm Surgeon: El Zendejas MD Anesthesia: local Was an Medical Insurance Coding Specialist used for this Procedure?: No Estimated blood loss (mL): 100 IV fluids (mL): 750 Pathology: none sent Condition: stable Disposition: PACU
[2025-07-12 20:44] LABS: Glucose, Whole Blood 140 mg/dL (60-115)
[2025-07-13 03:18] VITALS: BP 134/62; PULSE 95; RESP 20; TEMP 35.8; O2SAT 96
[2025-07-13 06:20] LABS: MANUAL DIFF FLAG NO
[2025-07-13 06:25] LABS: Hematocrit 28.9 % (37.0-47.0); Hemoglobin 9.2 g/dl (12.0-16.0); Imm Gran Abs Auto 0.03 X10*3/uL (0.00-0.03); Imm Gran Pct Auto 0.3 % (0.0-0.4); Lymphocytes Absolute Auto 1.0 X10*3/uL (1.2-4.9); Mean Corpuscular HGB Conc 31.8 g/dl (31.0-35.0); Mean Corpuscular Hemoglobin 30.6 pg (27.0-33.0); Mean Corpuscular Volume 96.0 fL (80.0-98.0); NRBC Abs Auto 0.000 X10*3/uL (0.0-0.012); NRBC Pct Auto 0.0 /100WBC (0.0-0.2); Platelet Count 204 X10*3/uL (160-400); Red Blood Count 3.01 X10*6/uL (4.20-5.50); White Blood Count 10.7 X10*3/uL (4.8-10.8)
[2025-07-13 06:47] LABS: Alanine Aminotransferase 9 U/L (0-31); Albumin Level 3.5 g/dL (3.5-5.0); Alkaline Phosphatase 79 U/L (39-117); Anion Gap 14 (12-20); Aspartate Amino Transferase 42 U/L (5-31); Blood Urea Nitrogen 19 mg/dL (9-16); Calcium 8.9 mg/dL (8.4-10.2); Carbon Dioxide 30 mmol/L (22-29); Chloride 99 mmol/L (96-108); Creatinine Clr Calc Pharmacy 37.8; Estimated Glomerular Filt Rate 52; Potassium 4.2 mmol/L (3.3-5.1); Sodium 139 mmol/L (135-145); Total Protein 6.3 g/dL (6.5-8.0)
[2025-07-13 07:10] VITALS: BP 132/99; PULSE 94; RESP 16; TEMP 36.2; O2SAT 96
[2025-07-13] MEDS: 0.9 % Sodium Chloride Flush 3 ML SYRINGE IVFLUSH ×3 (07:30→20:24)
[2025-07-13 07:52] LABS: Glucose, Whole Blood 137 mg/dL (60-115)
--- NOTE | 2025-07-13 10:44 | PM.PNCARD ---
Subjective Subjective Date of Service: 07/13/25 Interval history: Patient states she is doing okay. Had hip surgery yesterday and that was unremarkable. Review of Systems Review of Systems Yes all other systems are reviewed and are negative Constitutional: Reports as per HPI and Reports no additional constitutional complaints Eyes: Reports as per HPI and Denies no additional eye complaints Denies system reviewed and no additional complaints, except as documented and Reports as per HPI Cardiovascular: Reports as per HPI, Reports no additional cardiovascular complaints, Denies acrocyanosis, Denies cool extremities, Denies chest pain, Denies leg edema, Denies lightheadedness, Denies palpitations and Denies dyspnea Respiratory: Reports as per HPI, Denies no additional respiratory complaints and Denies dyspnea Gastrointestinal: Reports as per HPI and Denies no additional gastrointestinal complaints Genitourinary: Reports as per HPI Musculoskeletal: Reports no additional musculoskeletal complaints and Reports as per HPI Skin/Breast: Reports system reviewed and no additional complaints, except as docu Reports system reviewed and no additional complaints, except as documented and Reports as per HPI Psychiatric: Reports no additional psychiatric complaints and Reports as per HPI Endocrine: Reports no additional endocrine complaints, Reports as per HPI and Denies palpitations Hematologic/Lymphatic: Reports no additional hematologic/lymphatic complaints and Reports as per HPI Allergic/Immunologic: Reports no additional allergic/immunologic complaints and Reports as per HPI Physical Exam Vital Signs: Last Vital Signs Temp 97.1 F 07/13/25 07:10 Pulse 94 07/13/25 07:10 Resp 16 07/13/25 07:10 BP 132/99 H 07/13/25 07:10 Pulse Ox 96 07/13/25 07:10 O2 Del Method Nasal Cannula 07/13/25 07:10 O2 Flow Rate 3 07/13/25 07:10 Oxygen Flow Rate 2 07/12/25 05:02 BMI result Body Mass Index 22.8 Const General: comfortable and no acute distress Orientation/consciousness: patient oriented x3 HEENT Other: Unremarkable Head: Yes normal to inspection Neck Neck: Yes normal visual inspection Chest Chest palpation & inspection: normal inspection of the chest Resp Auscultation: diminished lung sounds Cardio Palpation: normal PMI Heart sounds: S1 normal heart sound present, S2 normal heart sound present, no gallops, Murmur heart sound present systolic II/ and no rubs GI Palpation (GI): Soft to palpation Back/Spine/Pelvis Other: unremarkable Skin General skin exam: no rashes or lesions noted Neuro General: patient oriented x3 Extrem General: Yes normal to inspection Psych Mental Status: mental status grossly normal Objective Labs and Meds 07/13/25 06:07 07/13/25 06:07 Lab results: Laboratory Results - last 24 hr 07/12/25 07/12/25 07/12/25 13:08 15:50 20:34 WBC RBC Hgb Hct MCV MCH MCHC RDW Plt Count MPV Immature Gran % (Auto) Neut % (Auto) Lymph % (Auto) Hickman % (Auto) Eos % (Auto) Baso % (Auto) Lymph # (Auto) Hickman # (Auto) Eos # (Auto) Baso # (Auto) Abs Immat Gran (auto) Absolute Neuts (auto) Absolute Nucleated RBC Nucleated RBC % (auto) Sodium Potassium Chloride Carbon Dioxide Anion Gap BUN Creatinine Estim Creat Clear Calc Estimated GFR POC Glucose 144 H 141 H 140 H Random Glucose Calcium Total Bilirubin AST ALT Alkaline Phosphatase Total Protein Albumin 07/13/25 07/13/25 06:07 07:20 WBC 10.7 RBC 3.01 L D Hgb 9.2 L D Hct 28.9 L D MCV 96.0 MCH 30.6 MCHC 31.8 RDW 13.7 Plt Count 204 D MPV 9.7 Immature Gran % (Auto) 0.3 Neut % (Auto) 84.9 H Lymph % (Auto) 9.1 L Hickman % (Auto) 5.3 Eos % (Auto) 0.1 Baso % (Auto) 0.3 Lymph # (Auto) 1.0 L Hickman # (Auto) 0.6 Eos # (Auto) 0.0 Baso # (Auto) 0.0 Abs Immat Gran (auto) 0.03 Absolute Neuts (auto) 9.1 H Absolute Nucleated RBC 0.000 Nucleated RBC % (auto) 0.0 Sodium 139 Potassium 4.2 Chloride 99 Carbon Dioxide 30 H Anion Gap 14 BUN 19 H Creatinine 1.03 Estim Creat Clear Calc 37.8 Estimated GFR 52 POC Glucose 137 H Random Glucose 131 H Calcium 8.9 Total Bilirubin 0.4 AST 42 H ALT 9 Alkaline Phosphatase 79 Total Protein 6.3 L Albumin 3.5 Progress Note: A&P Assessment and plan (1) Aortic stenosis: Status: Acute (2) Cardiomyopathy: Status: Acute Plan Echocardiogram reviewed. LVEF is 45-50%. Aortic valve is severely calcified. Suggestive of low-flow, low gradient moderate aortic stenosis. Mitral valve is also severely calcified but no obvious dysfunction. Remains hemodynamically stable and without any cardiac complaints at this time. Usual postoperative care per Orthopedics. 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 Time Spent With Patient Time: Total time managing care of this patient today ____ minutes. Progress Note: Quality Stroke Does the patient have a stroke diagnosis?: No Reason for No Anti-thrombotic by Day Two: Contraindicated (in case pt goes for surgery today ) Procedures Date of Service Date of Service: 07/13/25
--- NOTE | 2025-07-13 12:10 | HO.PM.IMPN ---
Subjective Subjective Date of Service: 07/13/25 Interval History: No acute issues overnight. Tolerated surgery without issue Review of Systems Denies chest pain Denies shortness of breath Denies nausea vomiting diarrhea Denies fever chills Physical Exam Vital Signs: Vital Signs: Last Vital Signs Temp 97.1 F 07/13/25 07:10 Pulse 94 07/13/25 07:10 Resp 16 07/13/25 07:10 BP 132/99 H 07/13/25 07:10 Pulse Ox 96 07/13/25 07:10 O2 Del Method Nasal Cannula 07/13/25 07:10 O2 Flow Rate 3 07/13/25 07:10 Oxygen Flow Rate 2 07/12/25 05:02 BMI result Body Mass Index 22.8 Const: Other: Awake alert no acute distress Resp: Other: Clear to auscultation bilaterally no rales rhonchi or wheezes Cardio: Other: No S4; positive S1-S2; no S3 murmurs rubs or gallops GI: Other: Soft nontender nondistended normoactive bowel sounds Extrem: Other: No edema bilaterally Objective Data Active Medications Acetaminophen (Acetaminophen 325 Mg Tablet) 650 mg PO Q6H PRN PRN Reason: Pain, Mild 1-3,fever,headache Albuterol/Ipratropium (Albuterol/Iprat 2.5/0.5mg 3 Ml Ampul.Neb) 3 ml INHALE Q4H PRN PRN Reason: Shortness of Breath/Wheezing Calcium Carbonate (Calcium Carbonate 750 Mg Tab.Chew) 750 mg PO Q4H PRN PRN Reason: Heartburn Dextrose (Dextrose 50 % 25 Gm/50 Ml Syringe) 25 gm IVPUSH Q15M PRN; Protocol PRN Reason: per Hypoglycemia Standing Ord. Glucose (Glucose Gel 15 Gm Gel..Gram.) 15 gm PO Q15M PRN; Protocol PRN Reason: per Hypoglycemia Standing Ord. Hydromorphone HCl (Hydromorphone Hcl 1 Mg/Ml Syringe) 1 mg IVPUSH Q3H PRN; Protocol PRN Reason: Pain, Severe (Pain Scale 7-10) Last Admin: 07/13/25 08:40 Dose: 1 mg Documented By: BRIGITTE Insulin Human Lispro (Insulin Lispro 100 Unit/Ml 3 Ml Vial) 0 unit SUBCUT [facility]; Protocol Last Admin: 07/13/25 07:57 Dose: Not Given Documented By: BRIGITTE Non-Admin Reason: No Insulin Coverage Magnesium Hydroxide (Milk Of Magnesia 30 Ml Oral.Susp) 30 ml PO DAILY PRN PRN Reason: Constipation Melatonin (Melatonin 3 Mg Tablet) 6 mg PO BEDTIME PRN PRN Reason: Insomnia Naloxone HCl (Naloxone Hcl 0.4 Mg/Ml Vial) 0.04 mg IVPUSH Q5M PRN PRN Reason: Excessive sedation or RR < 8 Ondansetron HCl (Ondansetron Hcl 4 Mg/2 Ml Vial) 4 mg IVPUSH Q8H PRN PRN Reason: Nausea and Vomiting Last Admin: 07/13/25 08:45 Dose: 4 mg Documented By: BRIGITTE Pantoprazole Sodium (Pantoprazole Sodium 40 Mg/10 Ml Vial) 40 mg IVPUSH DAILY@0630 [facility] Last Admin: 07/13/25 07:29 Dose: 40 mg Documented By: BRIGITTE Polyethylene Glycol (Polyethylene Glycol 3350 17 Gm Powd.Pack) 17 gm PO DAILY PRN PRN Reason: Constipation Last Admin: 07/13/25 07:41 Dose: 17 gm Documented By: BRIGITTE Senna (Sennosides 8.6 Mg Tablet) 17.2 mg PO BEDTIME [facility] Last Admin: 07/12/25 20:35 Dose: 17.2 mg Documented By: RENEE Sodium Chloride (0.9 % Sodium Chloride Flush 3 Ml Syringe) 3 ml IVFLUSH QSHIFT [facility] Last Admin: 07/13/25 07:30 Dose: 3 ml Documented By: BRIGITTE Labs 07/13/25 06:07 07/13/25 06:07 Labs: Laboratory Results - last 24 hr 07/12/25 07/12/25 07/12/25 13:08 15:50 20:34 MCV MCH MCHC RDW Plt Count MPV Immature Gran % (Auto) Neut % (Auto) Lymph % (Auto) [place]mullen % (Auto) Eos % (Auto) Baso % (Auto) Lymph # (Auto) [place]mullen # (Auto) Eos # (Auto) Baso # (Auto) Abs Immat Gran (auto) Absolute Neuts (auto) Absolute Nucleated RBC Nucleated RBC % (auto) Anion Gap Estim Creat Clear Calc Estimated GFR POC Glucose 144 H 141 H 140 H Random Glucose Calcium Total Bilirubin AST ALT Alkaline Phosphatase Total Protein Albumin 07/13/25 07/13/25 06:07 07:20 MCV 96.0 MCH 30.6 MCHC 31.8 RDW 13.7 Plt Count 204 D MPV 9.7 Immature Gran % (Auto) 0.3 Neut % (Auto) 84.9 H Lymph % (Auto) 9.1 L Mcmullen % (Auto) 5.3 Eos % (Auto) 0.1 Baso % (Auto) 0.3 Lymph # (Auto) 1.0 L Mcmullen # (Auto) 0.6 Eos # (Auto) 0.0 Baso # (Auto) 0.0 Abs Immat Gran (auto) 0.03 Absolute Neuts (auto) 9.1 H Absolute Nucleated RBC 0.000 Nucleated RBC % (auto) 0.0 Anion Gap 14 Estim Creat Clear Calc 37.8 Estimated GFR 52 POC Glucose 137 H Random Glucose 131 H Calcium 8.9 Total Bilirubin 0.4 AST 42 H ALT 9 Alkaline Phosphatase 79 Total Protein 6.3 L Albumin 3.5 Assessment and Plan (1) Closed intertrochanteric fracture of left femur: Status: Acute (2) HFrEF (heart failure with reduced ejection fraction): Status: Acute Plan 75-year-old female with past medical history hypertension, hypothyroidism, anemia, aortic stenosis, 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 Patient was accepted by Dr. Juarez who has reached out to Orthopedics and they are aware that patient has been transferred. 1.Acute displaced intertrochanteric left femur fracture -POD 1 -as per Orthopedics 2.GERD -Pt on protonix IV ...switched to PO 3.Hypertension -acceptable control on current therapies -adjust as indicated 4.HFrEF Patient presents euvolemic on her baseline nasal cannula of 2 L Daily weight, fluid allowance 1500, once able to eat we will need a cardiac diet low-sodium BNP pending 5.COPD/Asthma -stable well compensated -O2 at 3 L (baseline) 6.NIDDM -acceptable control current therapies -lispro correctional scale -adjust as indicated Full code Lovenox Quality Stroke Does the patient have a stroke diagnosis?: No Reason for No Anti-thrombotic by Day Two: Contraindicated (in case pt goes for surgery today ) VTE Prior VTE?: No VTE Risk Level:: Medical - moderate - high VTE Device Contraindication: N/A - Device Ordered VTE Drug Contraindication: Treatment Not Indicated
[2025-07-13 12:30] LABS: Glucose, Whole Blood 235 mg/dL (60-115)
[2025-07-13 12:40] VITALS: BP 149/54; PULSE 98; RESP 16; TEMP 36; O2SAT 92
--- NOTE | 2025-07-13 14:30 | P.PNOP_ITS ---
Subjective Subjective Date of Service: 07/13/25 Interval history: POD 1 s/p Lt hip IMN no overnight events patient resting in chair, pain tolerable Physical Exam Vital Signs: Vital Signs: Last Vital Signs Temp 96.8 F 07/13/25 12:40 Pulse 98 07/13/25 12:40 Resp 16 07/13/25 12:40 BP 149/54 H 07/13/25 12:40 Pulse Ox 92 07/13/25 12:40 O2 Del Method Nasal Cannula 07/13/25 12:40 O2 Flow Rate 3 07/13/25 12:40 Oxygen Flow Rate 2 07/12/25 05:02 BMI result Body Mass Index 22.8 Const: General: cooperative, healthy appearing and no acute distress Resp: Effort & Inspection: normal respiratory effort and able to speak in complete sentences Cardio: Rate: regular rate Peripheral pulses: Peripheral pulses 2+ thr oughout GI: Palpation (GI): Soft to palpation Skin: General skin exam: no rashes or lesions noted Extrem: Other: bandage clean dry and intact. [place] intact. No erythema or effusion. Calf supple nontender. Neurovascularly intact. Procedures Date of Service Date of Service: 07/13/25 Progress Note: A&P Assessment and plan (1) Closed intertrochanteric fracture of left femur: Status: Acute Assessment and Plan: * Continue pain mgmnt * Begin Aspirin for dvt ppx * begin PT for LT hip imn wbat * Dispo planning-Pending PT eval, pain mgmnt Time Spent With Patient Time: Total time managing care of this patient today ____ minutes. Quality Stroke Does the patient have a stroke diagnosis?: No Reason for No Anti-thrombotic by Day Two: Contraindicated (in case pt goes for surgery today ) VTE Prior VTE?: No VTE Risk Level:: Medical - moderate - high VTE Device Contraindication: N/A - Device Ordered VTE Drug Contraindication: Treatment Not Indicated
[2025-07-13 15:24] VITALS: BP 112/58; PULSE 82; RESP 18; TEMP 36.2; O2SAT 95
[2025-07-13 15:59] LABS: Glucose, Whole Blood 140 mg/dL (60-115)
--- NOTE | 2025-07-13 16:02 | MHC.CM.PN ---
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 TO ASSIST WITH HOUSEWORK SHE SAYS SHE DID HAVE A VNA, BUT SHE DOES NOT KNOW THE AGENCY SHE SAYS SHE DID A HCP WITH A PSYCHIATRY INSTRUCTOR, BUT CANNOT GET A COPY SHE SIGNED ONE TODAY FOR THE PURPOSES OF GOING TO [facility] PCP: GARO BETHEA IMM DELIVERED DCP: STR, CLAIRE RE[facility] PREFERRED BLS TRANSPORT
--- NOTE | 2025-07-13 16:30 | HO.POSTANES ---
Post Anesthesia Evaluation Post Anesthesia Evaluation Date of Service: 07/13/25 Vital Signs: Vital Signs Temp Pulse Resp BP Pulse Ox O2 Del Method O2 Flow Rate 07/13/25 15:24 97.2 F 82 18 112/58 L 95 Nasal Cannula 2 07/13/25 12:40 96.8 F 98 16 149/54 H 92 Nasal Cannula 3 07/13/25 07:10 97.1 F 94 16 132/99 H 96 Nasal Cannula 3 Anesthesia: General LMA Mental Status: Awake Pain Control: Satisfactory Nausea/Vomiting: None Hydration: Adequate Anesthesia-Related Issues: No Anes. Related Issues
[2025-07-13 19:14] VITALS: BP 122/66; PULSE 89; RESP 16; TEMP 36.1; O2SAT 94
[2025-07-13 20:00] LABS: Glucose, Whole Blood 156 mg/dL (60-115)
[2025-07-13] MEDS: Latanoprost 0.005 % Ophth Sol 2.5 ML DROPS 1 DROP EYE-BOTH (20:25)
[2025-07-14 03:13] VITALS: BP 127/60; PULSE 82; RESP 16; TEMP 36.1; O2SAT 90
[2025-07-14] MEDS: Umeclidinium/Vilanterol 62.5/25 BLST.W.DEV 1 PUFF INHALE (07:43)
[2025-07-14 07:46] VITALS: PULSE 82; RESP 16; O2SAT 94
[2025-07-14 07:51] VITALS: BP 123/61; PULSE 95; RESP 16; TEMP 36.5; O2SAT 94
[2025-07-14 07:58] LABS: Glucose, Whole Blood 201 mg/dL (60-115)
[2025-07-14] MEDS: 0.9 % Sodium Chloride Flush 3 ML SYRINGE IVFLUSH ×3 (08:15→20:32)
[2025-07-14 09:08] VITALS: BP 123/61; PULSE 95; O2SAT 94
--- NOTE | 2025-07-14 09:43 | P.PNOP_ITS ---
Subjective Subjective Date of Service: 07/14/25 Interval history: POD 2 s/p Lt hip IMN no overnight events patient resting in chair, pain tolerable Physical Exam Vital Signs: Vital Signs: Last Vital Signs Temp 97.7 F 07/14/25 07:51 Pulse 95 07/14/25 09:08 Resp 16 07/14/25 07:51 BP 123/61 07/14/25 09:08 Pulse Ox 94 07/14/25 09:08 O2 Del Method Nasal Cannula 07/14/25 07:51 O2 Flow Rate 2.0 07/14/25 07:51 Oxygen Flow Rate 2 07/12/25 05:02 BMI result Body Mass Index 22.8 Const: General: cooperative, healthy appearing and no acute distress Resp: Effort & Inspection: normal respiratory effort and able to speak in complete sentences Cardio: Rate: regular rate Peripheral pulses: Peripheral pulses 2+ thr oughout GI: Palpation (GI): Soft to palpation Skin: General skin exam: no rashes or lesions noted Extrem: Other: bandage clean dry and intact. [place] intact. No erythema or effusion. Calf supple nontender. Neurovascularly intact. Procedures Date of Service Date of Service: 07/14/25 Progress Note: A&P Assessment and plan (1) Closed intertrochanteric fracture of left femur: Status: Acute Assessment and Plan: * Continue pain mgmnt * Aspirin for dvt ppx * PT for LT hip imn wbat * Dispo planning-Pending PT eval, pain mgmnt Time Spent With Patient Time: Total time managing care of this patient today ____ minutes. Quality Stroke Does the patient have a stroke diagnosis?: No Reason for No Anti-thrombotic by Day Two: Contraindicated (in case pt goes for surgery today ) VTE Prior VTE?: No VTE Risk Level:: Medical - moderate - high VTE Device Contraindication: N/A - Device Ordered VTE Drug Contraindication: Treatment Not Indicated
--- NOTE | 2025-07-14 11:17 | HO.PM.IMPN ---
Subjective Subjective Date of Service: 07/14/25 Interval History: No acute issues overnight. Pain control adequate Review of Systems Denies chest pain Denies shortness of breath Denies nausea vomiting diarrhea Denies fever chills Physical Exam Vital Signs: Vital Signs: Last Vital Signs Temp 97.7 F 07/14/25 07:51 Pulse 95 07/14/25 09:08 Resp 16 07/14/25 07:51 BP 123/61 07/14/25 09:08 Pulse Ox 94 07/14/25 09:08 O2 Del Method Nasal Cannula 07/14/25 07:51 O2 Flow Rate 2.0 07/14/25 07:51 Oxygen Flow Rate 2 07/12/25 05:02 BMI result Body Mass Index 22.8 Const: Other: Awake alert no acute distress Resp: Other: Clear to auscultation bilaterally no rales rhonchi or wheezes Cardio: Other: No S4; positive S1-S2; no S3 murmurs rubs or gallops GI: Other: Soft nontender nondistended normoactive bowel sounds Extrem: Other: No edema bilaterally Objective Data Active Medications Acetaminophen (Acetaminophen 325 Mg Tablet) 650 mg PO Q6H PRN PRN Reason: Pain, Mild 1-3,fever,headache Albuterol/Ipratropium (Albuterol/Iprat 2.5/0.5mg 3 Ml Ampul.Neb) 3 ml INHALE Q4H PRN PRN Reason: Shortness of Breath/Wheezing Amlodipine Besylate (Amlodipine Besylate 10 Mg Tablet) 10 mg PO DAILY [facility]; Protocol Last Admin: 07/14/25 08:15 Dose: 10 mg Documented By: MARIA TERESA Aspirin (Aspirin 325 Mg Tablet) 325 mg PO BID [facility] Last Admin: 07/14/25 08:14 Dose: 325 mg Documented By: MARIA TERESA Atorvastatin Calcium (Atorvastatin Calcium 40 Mg Tablet) 40 mg PO DAILY [facility] Last Admin: 07/14/25 08:15 Dose: 40 mg Documented By: MARIA TERESA Calcium Carbonate (Calcium Carbonate 750 Mg Tab.Chew) 750 mg PO Q4H PRN PRN Reason: Heartburn Celecoxib (Celecoxib 200 Mg Capsule) 200 mg PO BID [facility] Last Admin: 07/14/25 08:14 Dose: 200 mg Documented By: MARIA TERESA Dextrose (Dextrose 50 % 25 Gm/50 Ml Syringe) 25 gm IVPUSH Q15M PRN; Protocol PRN Reason: per Hypoglycemia Standing Ord. Duloxetine HCl (Duloxetine Hcl 60 Mg Capsule.Dr) 60 mg PO DAILY [facility] Last Admin: 07/14/25 08:14 Dose: 60 mg Documented By: MARIA TERESA Ergocalciferol (Ergocalciferol (Vitamin D2) 1,250 Mcg Capsule) 1,250 mcg PO Q7D [facility] Last Admin: 07/13/25 12:49 Dose: Not Given Documented By: BRIGITTE Non-Admin Reason: pt refused Famotidine (Famotidine 20 Mg Tablet) 40 mg PO DAILY [facility] Last Admin: 07/14/25 08:14 Dose: 40 mg Documented By: MARIA TERESA Fluticasone Propionate (Fluticasone Propionate Nasal 16 Gm Thornton) 2 spray NOSTRIL-B DAILY [facility] Furosemide (Furosemide 40 Mg Tablet) 40 mg PO DAILY [facility]; Protocol Last Admin: 07/14/25 08:14 Dose: 40 mg Documented By: MARIA TERESA Glucose (Glucose Gel 15 Gm Gel..Gram.) 15 gm PO Q15M PRN; Protocol PRN Reason: per Hypoglycemia Standing Ord. Hydromorphone HCl (Hydromorphone Hcl 1 Mg/Ml Syringe) 1 mg IVPUSH Q3H PRN; Protocol PRN Reason: Pain, Severe (Pain Scale 7-10) Last Admin: 07/14/25 05:57 Dose: 1 mg Documented By: LAZARO Insulin Human Lispro (Insulin Lispro 100 Unit/Ml 3 Ml Vial) 0 unit SUBCUT QIDACHS [facility]; Protocol Last Admin: 07/14/25 08:13 Dose: 4 unit Documented By: MARIA TERESA Lamotrigine (Lamotrigine 100 Mg Tablet) 200 mg PO DAILY [facility] Last Admin: 07/14/25 08:15 Dose: 200 mg Documented By: MARIA TERESA Latanoprost (Latanoprost 0.005 % Ophth Swathi 2.5 Ml Drops) 1 drop EYE-BOTH BEDTIME [facility] Last Admin: 07/13/25 20:25 Dose: 1 drop Documented By: LAZARO Levothyroxine Sodium (Levothyroxine Sodium 112 Mcg Tablet) 112 mcg PO DAILY@0600 [facility] Last Admin: 07/14/25 05:53 Dose: 112 mcg Documented By: LAZARO Lorazepam (Lorazepam 0.5 Mg Tablet) 0.5 mg PO DAILY PRN PRN Reason: anxiety attack Magnesium Hydroxide (Milk Of Magnesia 30 Ml Oral.Susp) 30 ml PO DAILY PRN PRN Reason: Constipation Melatonin (Melatonin 3 Mg Tablet) 6 mg PO BEDTIME PRN PRN Reason: Insomnia Naloxone HCl (Naloxone Hcl 0.4 Mg/Ml Vial) 0.04 mg IVPUSH Q5M PRN PRN Reason: Excessive sedation or RR < 8 Ondansetron HCl (Ondansetron Hcl 4 Mg/2 Ml Vial) 4 mg IVPUSH Q8H PRN PRN Reason: Nausea and Vomiting Last Admin: 07/13/25 08:45 Dose: 4 mg Documented By: BRIGITTE Pantoprazole Sodium (Pantoprazole Sodium 40 Mg/10 Ml Vial) 40 mg IVPUSH DAILY@0630 [facility] Last Admin: 07/14/25 05:53 Dose: 40 mg Documented By: LAZARO Polyethylene Glycol (Polyethylene Glycol 3350 17 Gm Powd.Pack) 17 gm PO DAILY PRN PRN Reason: Constipation Last Admin: 07/13/25 07:41 Dose: 17 gm Documented By: BRIGITTE Senna (Sennosides 8.6 Mg Tablet) 17.2 mg PO BEDTIME [facility] Last Admin: 07/13/25 20:18 Dose: 17.2 mg Documented By: LAZARO Sodium Chloride (0.9 % Sodium Chloride Flush 3 Ml Syringe) 3 ml IVFLUSH QSHIFT [facility] Last Admin: 07/14/25 08:15 Dose: 3 ml Documented By: MARIA TERESA Trazodone HCl (Trazodone Hcl 100 Mg Tablet) 200 mg PO BEDTIME PRN PRN Reason: Insomnia Labs 07/13/25 06:07 07/13/25 06:07 Labs: Laboratory Results - last 24 hr 07/13/25 07/13/25 07/13/25 12:12 15:49 19:54 POC Glucose 235 H 140 H 156 H 07/14/25 07:55 POC Glucose 201 H Assessment and Plan (1) Closed intertrochanteric fracture of left femur: Status: Acute Plan 75-year-old female with past medical history hypertension, hypothyroidism, anemia, aortic stenosis, 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 Patient was accepted by Dr. Juarez who has reached out to Orthopedics and they are aware that patient has been transferred. 1.Acute displaced intertrochanteric left femur fracture -POD 2 -as per Orthopedics -PT recommending short-term rehab 2.GERD -Pt on protonix IV ...switched to PO 3.Hypertension -acceptable control on current therapies -adjust as indicated 4.HFrEF Patient presents euvolemic on her baseline nasal cannula of 2 L Daily weight, fluid allowance 1500, once able to eat we will need a cardiac diet low-sodium BNP pending 5.COPD/Asthma -stable well compensated -O2 at 3 L (baseline) 6.NIDDM -acceptable control current therapies -lispro correctional scale -adjust as indicated Full code Lovenox Quality Stroke Does the patient have a stroke diagnosis?: No Reason for No Anti-thrombotic by Day Two: Contraindicated (in case pt goes for surgery today ) VTE Prior VTE?: No VTE Risk Level:: Medical - moderate - high VTE Device Contraindication: N/A - Device Ordered VTE Drug Contraindication: Treatment Not Indicated
[2025-07-14 11:28] LABS: Glucose, Whole Blood 103 mg/dL (60-115)
[2025-07-14 15:55] VITALS: BP 132/72; PULSE 88; RESP 18; TEMP 36.4; O2SAT 97
[2025-07-14 16:17] LABS: Glucose, Whole Blood 154 mg/dL (60-115)
[2025-07-14 19:20] VITALS: BP 112/68; PULSE 95; RESP 18; TEMP 36.6; O2SAT 92
[2025-07-14 20:14] LABS: Glucose, Whole Blood 175 mg/dL (60-115)
[2025-07-14] MEDS: Latanoprost 0.005 % Ophth Sol 2.5 ML DROPS 1 DROP EYE-BOTH (20:28)
[2025-07-15 02:51] VITALS: BP 110/51; PULSE 53; RESP 16; TEMP 36.2; O2SAT 95
[2025-07-15 07:44] LABS: Glucose, Whole Blood 115 mg/dL (60-115)
[2025-07-15] MEDS: Umeclidinium/Vilanterol 62.5/25 BLST.W.DEV 1 PUFF INHALE (07:45)
[2025-07-15 07:46] VITALS: PULSE 53; RESP 16; O2SAT 97
[2025-07-15 07:50] VITALS: BP 106/56; PULSE 91; RESP 18; TEMP 36.4; O2SAT 93
[2025-07-15] MEDS: 0.9 % Sodium Chloride Flush 3 ML SYRINGE IVFLUSH (08:17)
--- NOTE | 2025-07-15 11:37 | MHC.CM.PN ---
IMM 07/15/25 Patient has accepted a bed offer from [facility]. She will transport to the SNF for [facility] @ today at 2:30pm.
--- NOTE | 2025-07-15 11:40 | PM.DS ---
DS: Providers Provider Date of Service: 07/15/25 Date of admission: 07/12/25 06:23 Date of discharge: 07/15/25 Primary care physician: Unknown Physician Consults: 07/12/25 05:18 Consult to Orthopedics Routine Consulting Provider: [facility] Reason for consultation: per Dr Juarez, accepted from [facility], displaced L femur fx Has provider been notified: No 07/12/25 08:19 Consult to Cardiology Routine Consulting Provider: [facility] Reason for consultation: Abn BNP Has provider been notified: Yes DS: Diagnosis Discharge Diagnosis (1) Closed intertrochanteric fracture of left femur: Status: Acute (2) Depression with anxiety: Status: Acute (3) Hypertension: Status: Acute (4) HFrEF (heart failure with reduced ejection fraction): Status: Acute (5) Hyperlipidemia: Status: Acute (6) Hypothyroidism: Status: Acute DS: Summary Hospital Course Hospital Course: 75-year-old female with past medical history hypertension, hypothyroidism, anemia, aortic stenosis, 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 Patient was accepted by Dr. Juarez who has reached out to Orthopedics and they are aware that patient has been transferred. 1.Acute displaced intertrochanteric left femur fracture s/p left hip IMN by ortho -POD 3 PT reccs STR, aspirin for dvt px for 28 days. Follow up with ortho in their office in 2-3 weeks. Pain control with Tylenol and oxycodone would avoid celecoxib while on aspirin . 2.GERD -resume home meds 3.Hypertension on amlodipine at home, held at discharge as BP has been running low, restart when appropriate 4.HFrEF Patient presents euvolemic on her baseline nasal cannula of 2 L on lasix at home, resume with close monitoring of Intake, if PO intake specially hydration is not optimal, would hold it for few days. 5.COPD/Asthma -stable well compensated -O2 at 3 L (baseline) resume home inh and meds. 6.NIDDM diet controlled Depression and axiety resume home meds. Time Attestation Discharge Coordination Time (in mins): 40 mins Quality: Safe Use of Opioids Does Pt have an Active Cancer Diagnosis on the Problem List?: No Quality: Stroke Does the patient have a stroke diagnosis?: No Physical Exam Exam: Exam: awake and alert lungs CTAB, on her BL O2 heart RRR no HARRY dressing intact over incision site Vital Signs: Vital Signs: Last Vital Signs Temp 97.5 F 07/15/25 07:50 Pulse 91 07/15/25 07:50 Resp 18 07/15/25 07:50 BP 106/56 L 07/15/25 07:50 Pulse Ox 93 07/15/25 07:50 O2 Del Method Nasal Cannula 07/15/25 07:50 O2 Flow Rate 3 07/15/25 07:50 Oxygen Flow Rate 2 07/12/25 05:02 BMI result Body Mass Index 22.8 DS: Data Data Completed and Pending Labs on day of discharge: Laboratory Results - last 24 hr 07/14/25 07/14/25 07/15/25 16:13 20:02 07:22 POC Glucose 154 H 175 H 115 Discharge Plan Discharge Anticipated Discharge Date/Time: 07/15/25 11:24 Patient Disposition: Xfer SNF Discharge Diagnosis: left femur fracture s/p left hip IMN Referrals: Rowan Vincent PA-C [Physician Hospice Clinical Manager, Orthopedics] - 1 Week Referral Note: 07/25/25 10:45 [facility] Karyn Lopez PA-C Rivera, Kristin, DO [Physician, Family Practice] - 1 Week Discharge Medications: New aspirin 325 mg Tablet 325 mg PO BID 30 Days Qty: 60 0RF oxycodone 5 mg Tablet 5 mg PO Q6H PRN (Reason: Pain, Severe (Pain Scale 7-10)) 5 Days Qty: 8 0RF Rx Instructions: Partial Fill upon patient request. Continued furosemide 40 mg tablet 40 mg PO QAM latanoprost 0.005 % drops 1 drp ophthalmic (eye) BEDTIME atorvastatin 40 mg tablet 40 mg PO QAM azithromycin 250 mg tablet 250 mg PO MOWEFR famotidine 40 mg tablet 40 mg PO DAILY lorazepam 0.5 mg tablet 0.5 mg PO DAILY PRN (Reason: anxiety attack) trazodone 100 mg tablet 200 mg PO BEDTIME PRN (Reason: insomnia) esomeprazole magnesium 40 mg capsule,delayed release(DR/EC) 40 mg PO BID ergocalciferol (vitamin D2) 1,250 mcg (50,000 unit) capsule 1,250 mcg PO QWEEK lamotrigine 100 mg tablet 200 mg PO DAILY levothyroxine 112 mcg tablet 112 mcg PO DAILY duloxetine 60 mg capsule,delayed release(DR/EC) 60 mg PO DAILY umeclidinium-vilanterol [Anoro Ellipta] 62.5-25 mcg/actuation blister with device 1 ea INHALATION DAILY fluticasone propionate 50 mcg/actuation spray,suspension 2 spray intranasal DAILY Held amlodipine 10 mg tablet 10 mg PO DAILY Hold Instructions: Resume on 07/18/25. BP borderline low at the time of discharge, restart when appropriate Discontinued celecoxib 200 mg capsule 200 mg PO BID Discharge Orders: Discharge Order (Routine); Ordered 07/15/25 Ordered By: Manuela Del Valle Activity on Discharge: As tolerated Stand Alone Forms: Patient Portal Discharge page Print Language: Wolof Care Plan Goals: Pt was transferred from [facility] with acute femur fracture and underwent left hip IMN on 07/12 without any complications by ortho. Pt is being discharged to [facility] on aspirin for DVT prophytlaxis for 30 days and with pain meds for pain control. Health Concerns: as above Plan of Treatment: as above Assessment: as above
[2025-07-15 11:48] LABS: Glucose, Whole Blood 211 mg/dL (60-115)
--- NOTE | 2025-07-25 11:43 | W.PM.OPN ---
Operative Note Operative Note Date of Service: 07/12/25 Narrative: Date of Service: 07/12/25 Pre-op diagnosis: Left intertrochanteric femur fracture Post-op diagnosis: same Procedure: Left hip IMN Implants: Stryer 11x 360 125 deg IMN with 80mm lag and 2 distal interlocking screw, 45; 40 mm Surgeon: El Zendejas MD Anesthesia: local Was an Management Scientist used for this Procedure?: No Estimated blood loss (mL): 100 IV fluids (mL): 750 Pathology: none sent Condition: stable Disposition: PACU Procedure in detail: Patient was brought to the operating room and prepped and draped in standard sterile fashion. Time-out was called to identify proper site procedure proper surgeon and IV antibiotics per weight were administered. She was positioned on the fracture table and a traction and slight internal rotation were performed and biplanar fluoroscopy confirmed initial fracture reduction. I then made a stab incision proximal to the greater trochanter in using a guidewire made a entry point just lateral to the tip of the greater trochanter and placed a guidewire into the femoral metadiaphysis. I then over-reamed with 15 mm Reamer placed my ball-tip guidewire down distally in the femur and measured my length. I selected a11 x 360 125 deg IMN nail and reamed up to a 12.5. I then inserted the nail. I then turned my attention to the hip screw where I used a guidewire and a tip apex distance of less than 1.5 measured ma 80mm lag screw. I then pre drilled and placed a hip screw using biplanar fluoroscopy. Once I was satisfied with the position of the hip screw I turned my attention to the distal aspect of the nail. Using perfect telida technique I placed 2 static distal interlocking screws using standard AO technique. I then removed all I then placed my set screw proximally and removed all extraneous instrumentation. Final biplanar radiographs were taken. I was satisfied with the position of the hardware and the fracture reduction. I then copiously irrigated closed with absorbable sutures and elissa and injected 30 mL of into the area of the incisions. Traction was let down patient was placed in sterile dressing awakened from anesthesia brought to recovery room stable condition there were no known complications.
== END 2025-07-15 15:18 | disposition skilled nursing facility (03) | DRG 481 ==
LOC: HO.ED 06:17 → HO.EDOVER 06:25 → HO.S3 11:41
PROVIDERS: Hospitalist; Nurse Practitioner Family; Orthopaedic Surgery; Admitting Provider Internal Medicine; Emergency Provider Emergency Medicine; Visit Provider Hospitalist
PROC: 0QS736Z Reposition Left Upper Femur with Intramedullary Internal Fixation Device, Percutaneous Approach (ICD-10-PCS; principal; 2025-07-12 16:00)
DX: S72.142A Displaced intertrochanteric fracture of left femur, initial encounter for closed fracture (principal); I13.0 Hypertensive heart and chronic kidney disease with heart failure and stage 1 through stage 4 chronic kidney disease, or unspecified chronic kidney disease; I50.22 Chronic systolic (congestive) heart failure; K21.9 Gastro-esophageal reflux disease without esophagitis; D63.1 Anemia in chronic kidney disease; E78.5 Hyperlipidemia, unspecified; M79.7 Fibromyalgia; N18.30 Chronic kidney disease, stage 3 unspecified; F32.A Depression, unspecified; F41.9 Anxiety disorder, unspecified; I70.0 Atherosclerosis of aorta; W19.XXXA Unspecified fall, initial encounter; I35.0 Nonrheumatic aortic (valve) stenosis; E03.9 Hypothyroidism, unspecified; J44.9 Chronic obstructive pulmonary disease, unspecified; E11.22 Type 2 diabetes mellitus with diabetic chronic kidney disease; Z99.81 Dependence on supplemental oxygen; Z79.51 Long term (current) use of inhaled steroids; Z79.890 Hormone replacement therapy; Z79.899 Other long term (current) drug therapy
CPT/HCPCS: 36415; 71045; 73502; 80053; 81001; 82947; 83735; 83880; 85025; 86850; 86900; 86901; 93005; 93306; 94640; 97162; 97166; 97530; 99285; C1713; J0690; J1171; J2003; J2371; J2405; J2470; J2704; J2795; J3010; J3475; Q9957

== ENCOUNTER → 2025-07-12 06:23 | Outpatient (BNV) | payer MEDICARE, MEDICAID, SELFPAY | PROVIDERS: Admitting Provider Internal Medicine; Emergency Provider Emergency Medicine; Visit Provider Internal Medicine | DX: I35.0 Nonrheumatic aortic (valve) stenosis (principal); I42.9 Cardiomyopathy, unspecified | CPT/HCPCS: 99233 ==

== ENCOUNTER → 2025-07-12 06:23 | Outpatient (BNV) | payer MEDICARE, MEDICAID, SELFPAY | PROVIDERS: Admitting Provider Internal Medicine; Emergency Provider Emergency Medicine; Visit Provider Orthopaedic Surgery | DX: S72.142A Displaced intertrochanteric fracture of left femur, initial encounter for closed fracture (principal) | CPT/HCPCS: 27245; 99024; 99223 ==

== ENCOUNTER → 2025-07-12 06:23 | Outpatient (BNV) | payer MEDICARE, MEDICAID, SELFPAY | PROVIDERS: Admitting Provider Internal Medicine; Emergency Provider Emergency Medicine; Visit Provider Hospitalist | DX: S72.142A Displaced intertrochanteric fracture of left femur, initial encounter for closed fracture (principal); I50.20 Unspecified systolic (congestive) heart failure | CPT/HCPCS: 99223; 99231; 99233; 99499 ==

== ENCOUNTER 2025-07-25 08:48 | Outpatient (REF) | payer MEDICARE, MEDICAID, SELFPAY ==
--- NOTE | ~2025-07-25 | XR_ITS ---
EXAMINATION: XR FEMUR, LEFT CLINICAL INFORMATION: S72.142A - Displaced intertrochanteric fracture of left femur, initial e... COMPARISON: Fluoroscopy 07/12/2025 TECHNIQUE: 4 views of the left femur were obtained. FINDINGS: Status post internal fixation of an intertrochanteric femoral fracture fracture with intramedullary jared and compression screw. Intact hardware. No findings to suggest hardware complications. Stable position and alignment of the fracture. No significant callus formation. Skin elissa. Vascular calcification.. Small ossification lateral to the lateral femoral condyle. Bone mineralization is decreased. No new acute fractures. Fusion hardware in the lower lumbar spine. Surgical clips projected over the pelvis. Phleboliths in the pelvis. XR/XR femur LT 2V IMPRESSION: Status post internal fixation of a proximal femoral fracture. Stable alignment. No findings to suggest hardware complications. Electronically signed by: Shivam Zuñiga MD 07/25/2025 03:58 PM ALANA
--- OUTSIDE RECORDS SUMMARY | 2025-07-29 17:49 | XMS_ITS | Data Portability ---
Author Organization [facility] [employer] Address [address] [place] [address] [place] [address] Care Team Providers Care Plastics Plater Name Role Phone GARO BETHEA Referring Provider GARO BETHEA Primary Care Provider [phone] GARO BETHEA Referring Provider [phone] Assessment Encounter Date Assessment Date Assessment LastModified [...] helps and does not cause side effects, tack picker prescription that I sent. If there [...] Orders Qulipta 30 mg tablet 024 024 [facility] #[id number], [address] [place], [address], 14:21:35 Patient TargetsNo targets recorded. Patient Instructions Encounter Date Encounter Id Patient Instructions Last Modified By Organization Details Last Modified Time 07/29/2024 [id number] Discussion acros s issues of diagnoses and management and same day associated chart review and management greater than 50% greater than 60 minutes mrossen Not available 07/29/2024 14:26:11 Reason for Referral None Reported. Procedures Surgical History Date Name Laterality Status Provider Name and Address Organization Details Recorded Time 07/29/2024 DATA REVIEW completed Rc Gautam MD [address] [place] [address] [place], [address], [facility] 07/29/2024 14:18:25 Imaging Results None recorded. Procedure Notes None recorded. Medical Equipment None Reported. Allergies Allergen ID Allergen Name Allergen Category Reaction Reaction Severity Criticality Documentation Date Start Date Code Code System Note Provider Name and Address Organization Details Recorded Time 4559 erythromy livan medicatio n Not available Not available Not available 07/29/2024 4053 RxNorm Kely Sutton [facility] 4 13:30:07 4560 Victoza medicatio n Not available Not available Not available 07/29/2024 97049 3 RxNorm Kely Sutton [facility] 4 13:30:41 4561 Substance with sulfonami de structure and antibacte rial mechanism of action (substanc e) medicatio n Not available Not available Not available 07/29/2024 67524 8003 SNOMED Kelyviri Sutton [facility] 4 13:30:46 Medications Name Sig Start Date [...] Available Not Available N ot Available FreeStyle [place] Lite kit USE TO CHECK BLOOD SUGAR [...] Updated DateTime 07/29/2024 154.94 cm 25.1 kg/m2 06103.79 g 12 /min Kely Sutton [facility] Neurology [facility] 07/29/2024 13:32:13 Social History Question Answer Notes LastModified by Organizat ion Details LastModified Time What Is Your Level Of Caffeine Consumption? Occasional Information not available 07/29/2024 What Is The Highest Grade Or Level Of School You Have Completed Or The Highest Degree You Have Received? [id number] Information not available 07/29/2024 Which Of Your Hands Is Dominant? Right Information not available 07/29/2024 Sex: Unknown Functional Status Question Answer Note LastModified by Organizat ion Details LastModified Time What is your level of alcohol consumption? Patient refused Information not available 07/29/2024 Mental Status None recorded. Family History Nothing Reported. Medical History Condition Response Head Trauma/Injury N Depression Y Lung Disease N COPD or emphysema Y Spine Problems N Obstructive Sleep Apnea N Alcoholism N Autoimmune disease N Arthritis N Developmental Problems N Cancer N Stroke N Heartburn, acid reflux, GERD Y Vitamin D Deficiency Y Liver Disease N Fibromyalgia N Headaches Y Kidney Disease Y Claustrophobia N Hospitalizations N High Blood Pressure or Hypertension Y Thyroid Problems Y Brain Tumors N Encephalitis N Vitamin B12 deficiency Y PTSD N Heart Attack ([place]) N Diabetes N Bleeding Disorder N Cerebral Palsy N Tuberculosis N Neck Problems N Back Problems N Asthma Y Epilepsy/Seizures N Bipolar Disorder N Sleep Disorder N Aneurysm N Hepatitis N Heart Disease Y High Cholesterol or Hyperlipidemia Y Osteoporosis Y Gynecological HistoryNo gynecological history recorded. Obstetrics History GPAL:G 0 P 0 0 0 0 Past Encounters Encounter ID Performer Location Encounter Start Date Encounter Closed Date Diagnosis/Indication Diagnosis SNOMED-CT Code Diagnosis ICD10 Code Diagnosis IMO Codes Diagnosis Note [id number] Rc Gautam MD [facility] [address] [place] [address] JONNATHAN ALVARADO [id number] 4 07/29/2024 13:00:31 07/29/2024 16:50:03 Concussion with loss of consciousness [id number] S06.0X9A Migraine without aura 56 706122 G43.009 Health Concerns Section Related Observation LastModified by Organization Detai ls LastModified Time None Recorded Concern Status LastModified by Organization Details LastModified Time None Recorded Advance Directives Directive None Recorded Payers Insurance Date Sequence Insurance Name Policy Number Policy Hidalgo Covered Member ID Hidalgo Member ID Guarantor Name 08/06/2024 1 [place] [employer] Briseida Adair [id number] Briseida Adair 08/23/2024 2 [place] [...] post injury treatment of her wound at [facility]: They never put in stitches. In addition, her head was caked with blood at discharge, with layers of blood. It took her weeks to get it off. Only then, weeks later, could she see the wound and tell that there were no stitches. She is quite angry about this. She has thought about calling [facility] but then has subsequently thought about moving on. Rc Gautam MD [address] [place] [address] [place], [address], [facility] 07/29/2024 14:26:48 OBGyn Episode No OBEpisode recorded.
== END 2025-07-25 08:49 | disposition home or self-care (01) ==
LOC: HO.HOSX 08:48
PROVIDERS: Visit Provider Physician Assistant
DX: S72.142D Displaced intertrochanteric fracture of left femur, subsequent encounter for closed fracture with routine healing (principal); X58.XXXD Exposure to other specified factors, subsequent encounter
CPT/HCPCS: 73552; 99212

== ENCOUNTER 2025-07-25 10:36 | Outpatient (AMB) | payer MEDICARE, MEDICAID, SELFPAY ==
--- NOTE | 2025-07-25 11:17 | A.OFFVIS_ITS ---
Intake Visit Reasons: PO-LT hip IMN 07/12/25-NE Intake Note: Briseida is a 75 year old female who presents today for a post op appointment status post left hip IMN done on 07/12/[address] Zendejas. Patient reports she is doing well, she is working with physical therapy with subtle improvements. She is expressing left knee pain as well that she has been having for a long time. Allergies liraglutide (From Victoza) Allergy (Verified 07/25/25 11:19) Rash Sulfa (Sulfonamide Antibiotics) Allergy (Verified 07/25/25 11:19) Rash erythromycin base Adverse Reaction (Verified 07/25/25 11:19) Gastrointestinal Upset HPI HPI PO-LT hip IMN 07/12/25-NE: Details: Ms. Adair is a 75-year-old female who presents to the office today status post left hip IM nail performed on 07/12/[address] Zendejas. Patient has been residing at a nursing facility postoperatively. She has been working with physical therapy. Reports pain in the left thigh and knee. [facility] Medical History (Updated 07/23/25 @ 00:01 by Jolly Sutton) Cardiomyopathy Closed intertrochanteric fracture of left femur Diabetic neuropathy Hypothyroidism Ileus Hearing loss Footdrop NAFLD (nonalcoholic fatty liver disease) Fibromyalgia Diverticulitis CKD (chronic kidney disease) stage 3, GFR 30-59 ml/min COPD (chronic obstructive pulmonary disease) Anemia Wrist fracture HFrEF (heart failure with reduced ejection fraction) Aortic stenosis Glaucoma GERD (gastroesophageal reflux disease) Depression with anxiety Hyperlipidemia Hypertension Surgical History Gastric bypass status for obesity History of total right knee replacement (TKR) S/P shoulder hemiarthroplasty Social History Household Members: Other Household Members Other:: 2 room mates Housing: House Do you presently have visiting nurse or other home services: No (PT) Alcohol intake: current Patient Tobacco Use Status: Never used Tobacco Second Hand Smoke Exposure: No Substance Use Type: Marijuana service: No Review of Systems Const All systems reviewed & are unremarkable except as noted in HPI and below Physical Exam Const General: cooperative, healthy appearing and no acute distress Resp Effort & Inspection: normal respiratory effort and able to speak in complete sentences Extrem Other: Left hip incision sites are clean dry and intact. No surrounding erythema or drainage. No signs of infection. [place] intact. Calf is supple and nontender. Able to dorsiflex and plantar flex. NVI. Psych Appearance: grossly normal Mental Status: mental status grossly normal Attitude: cooperative Assessment & Plan Assessment & Plan (1) Femur fracture, left: Code(s): S72.92XA - Unspecified fracture of left femur, initial encounter for closed fracture Category: Medical Qualifiers: Encounter type: initial encounter Femur location: unspecified portion of femur Fracture type: closed Fracture morphology: unspecified fracture morphology Qualified Code(s): S72.92XA - Unspecified fracture of left femur, initial encounter for closed fracture Plan Ms. Adair is a 75-year-old female who presents to the office today status post left hip IM nail performed on 07/12/[address] Zendejas. Patient has been residing at a nursing facility postoperatively. She has been working with physical therapy. Reports pain in the left thigh and knee. While in the office today, elissa were removed and Steri-Strips were applied. I have recommended physical therapy work on glute core quad strengthening as well as gait training with the use of a walker. She will continue anticoagulation for a total of 6 weeks postoperatively. Follow up will be in 4 weeks with repeat x-rays, sooner if needed. X-rays of the left femur which were obtained while in the office today and were reviewed by me, Karyn Lopez PA-C, revealed intact orthopedic hardware with routine healing. Orders: Orders XR femur LT 2V Today S72.142A - Displaced intertrochanteric fracture of left femur, initial encounter for closed fracture Coding Level of Care Code Global (77672) Diagnoses Closed fracture of left femur, unspecified fracture morphology, unspecified portion of femur, initial encounter S72.92XA Encounter type: initial encounter Femur location: unspecified portion of femur Fracture type: closed Fracture morphology: unspecified fracture morphology
== END 2025-07-25 11:41 | disposition home or self-care (01) ==
LOC: HO.HOS 10:36
PROVIDERS: Visit Provider Physician Assistant
DX: S72.92XA Unspecified fracture of left femur, initial encounter for closed fracture (principal)
CPT/HCPCS: 99024

== ENCOUNTER → 2025-07-25 10:46 | Outpatient (BNV) | payer MEDICARE, MEDICAID, SELFPAY | PROVIDERS: Visit Provider Radiology Diagnostic Ultrasound | DX: S72.142A Displaced intertrochanteric fracture of left femur, initial encounter for closed fracture (principal) | CPT/HCPCS: 73552 ==